=== PATIENT | male | born 1955 | race Caucasian/White ===

== ENCOUNTER → 2018-10-16 15:42 | Outpatient (CLI) | payer OTHER, SELFPAY ==
--- NOTE | 2018-10-16 16:11 | ECG_ITS ---
APPROVED REPORT Exam: Resting ECG HR:108 bpm ECG Measurements Heart Rate 108 AXES QRSd 114 QRS 83 QT 318 T 145 QTc 426 <Conclusion> Atrial Fibrillation,Motion Artifact Abnormal EKG Abnormal ECG Electronically signed by : Titi Borrego, 10/16/2018 16:25:40
--- NOTE | 2018-10-16 16:19 | XR_ITS ---
PROCEDURE: XR CHEST 2V CLINICAL HISTORY: smoker Heart disease COMPARISON: CXR1 CHEST-PORTABLE from 07/11/2013 FINDINGS: Prior CABG. Normal heart size. Nodular density is present at the 5th interspace anteriorly on the right at 9 by 6 mm. This is well-circumscribed may even represent a nipple shadow. Granuloma is an additional consideration. The remaining lungs are clear. No acute bony IMPRESSION: Findings. No acute finding. Nodular opacity overlying the right lower lung zone which could be due to granuloma or nipple shadow. Dictated by: Long Adames MD 10/16/2018 16:43 Signed by: <Electronically signed by Long Adames MD in [place]> 10/16/2018 16:43
--- NOTE | 2018-10-16 16:19 | XR_ITS ---
PROCEDURE: XR ABDOMEN MIN 2V CLINICAL INDICATION: abdominal pain COMPARISON: No exams were available for comparison FINDINGS: Nonspecific nonobstructive bowel gas pattern. Calcifications are present in the lower abdomen centrally and could be due to phleboliths. No intestinal obstruction or free air. Degenerative change lumbar spine. IMPRESSION: No acute finding Dictated by: Long Adames MD 10/16/2018 16:40 Signed by: <Electronically signed by Long Adames MD in OV> 10/16/2018 16:40
[2018-10-16 18:44] LABS: Basophils % 0.3 % (0.1-2.0); Eosinophils # 0.1 K/mm3 (0.0-0.4); Hematocrit 44.4 % (42.0-52.0); Hemoglobin 14.9 g/dL (14.1-18.0); Lymphocytes # 2.1 K/mm3 (0.7-4.5); Mean Corpuscular HGB Conc 33.5 g/dL (31.8-35.4); Mean Corpuscular Hemoglobin 33.5 pg (27.0-31.2); Mean Platelet Volume 8.9 fl (7.4-10.4); Monocytes # 0.5 K/mm3 (0.1-1.0); Monocytes % 6.3 % (1.7-9.3); Neutrophils # 5.1 K/mm3 (1.8-7.8); Neutrophils % 65.4 % (37.0-80.0); Platelet Count 278 K/mm3 (142-424); Red Blood Count 4.44 M/mm3 (4.60-6.20); Red Cell Distribution Width 13.3 % (11.5-17.5); White Blood Count 7.7 K/mm3 (4.8-10.8)
[2018-10-16 19:24] LABS: Alanine Aminotransferase 37 U/L (12-78); Albumin Level 3.8 gm/dL (3.4-5.0); Albumin/Globulin Ratio 1.2 (1.1-1.8); Alkaline Phosphatase 134 U/L (46-116); Anion Gap 15.5 mEq/L (5-15); Aspartate Amino Transferase 15 U/L (15-37); Bilirubin,Total 0.5 mg/dL (0.2-1.0); Blood Urea Nitrogen 14 mg/dL (7-18); C-Reactive Protein 0.7 mg/dL (0.0-0.9); Calcium 9.2 mg/dL (8.5-10.1); Carbon Dioxide 24 mmol/L (21.0-32.0); Chloride 103 mmol/L (98-107); Chol/HDL Ratio 6.6 (1-3.5); Cholesterol 206 mg/dL (140-200); Creatinine,Serum 0.78 mg/dL (0.70-1.30); Estimated Glomerular Filt Rate 101 ml/min (>60); GFR (African American) 122 ML/MIN (>60); Globulin 3.1 gm/dl (1.3-3.2); Glucose 86 mg/dL (74-106); HDL Cholesterol 31 mg/dL (27-67); LDL Cholesterol 154 mg/dL (0-130); Potassium 4.5 mmoL/L (3.5-5.1); Sodium 138 mmol/L (136-145); T4 (Thyroxine) 9.1 ug/dl (4.7-13.3); Thyroid Stimulating Hormone 1.93 uIU/ml (0.358-3.740); Total Protein,Serum 6.9 gm/dL (6.4-8.2); Triglycerides 106 mg/dL (30-200); VLDL Cholesterol 21 mg/dL (0-40)
[2018-10-16 19:39] LABS: Erythrocyte Sedimentation Rate 57 mm/hr (0-20)
[2018-10-18 09:48] LABS: Vitamin D 25 Hydroxy 21.2 ng/mL (30.0-100.0)
== END ==
PROVIDERS: PCP Emergency Medicine; Visit Provider Nurse Practitioner Family
DX: R10.9 Unspecified abdominal pain (principal); I10 Essential (primary) hypertension; F17.200 Nicotine dependence, unspecified, uncomplicated; R53.83 Other fatigue; R10.13 Epigastric pain; R00.2 Palpitations
CPT/HCPCS: 71046; 74019; 80053; 80061; 82652; 84436; 84443; 85025; 85651; 86140; 93005

== ENCOUNTER 2018-10-20 11:29 | Observation (INO) ==
--- NOTE | 2018-10-20 12:55 | Progress Note ---
Subjective Date: 10/20/18 Time: 12:51 Principal diagnosis: UAP, A. flutter with RVR Interval history: 63 yo WM seen in the office today for UAP and A. flutter with RVR. Symptoms present for 10-12 days and progressively worse. Similar to pre-CABG symptoms. Pt sent to cardiac laborer concrete paving today with subsequent ELSA to L main (supplying Ramus and Cx) and right innominate artery prior to GRISEL to RCA. NICOLE to LAD was widely patent. Diltiazem gtt started for a. flutter with improved rate control. Admit to observation overnight with plans to stop dilitiazem once rate controlled or he converts and start beta pallavi along with DAPT for stents placed. Exam Vital signs and Labs for Last 24 Hours: Temp BP Pulse Ox 98 F 117/63 96 10/20/18 12:30 10/20/18 12:30 10/20/18 12:30 I & O for Last 24 hours: Intake & Output 10/18/18 10/19/18 10/20/18 10/21/18 11:59 11:59 11:59 11:59 Weight 213 lb - *Routine HEENT Exam Head: Present: normocephalic Eye: Present: EOMI, PERRL ENT: Present: mucous membranes moist - *Routine Respiratory Exam Present: CTA bilaterally. Absent: accessory muscle use, rales, rhonchi, wheezes - *Routine Cardiovascular Exam Present: RRR, tachycardia. Absent: murmur, gallop, rubs - *Routine Abdominal Exam Present: soft. Absent: tenderness, distended, guarding - *Routine Extremities Exam Absent: edema, calf tenderness - *Routine Neurological Exam Present: alert, oriented X3, moving all extremities Progress Note: A&P (1) Angina, class III Status: Acute Current Visit: No (2) Abdominal pain Status: Acute Current Visit: No (3) Atrial flutter Status: Acute Current Visit: No (4) Dyspnea Status: Acute Current Visit: No (5) Hypertension Status: Acute Current Visit: No (6) Tobacco use Status: Acute Current Visit: No (7) CAD (coronary artery disease) Status: Chronic Current Visit: No (8) Hx of coronary artery bypass graft Status: Chronic Current Visit: No Assessment and Plan for All Diagnoses:: 1. ASA and Brilinta for ELSA 2. Dilitiazem gtt for rate control with plans to discontinue and use beta pallavi. 3. Start Xarelto 20 mg daily for anticoagulation. If pt doesn't convert in 30 days then cardiovert. 4. continue lisinopril as BP tolerates. 5. Echo to assess LVEF as it appears mildly diminished on LV gram. 6. Start statin therapy. 7. Likely discharge home tomorrow if stable.
[2018-10-20 16:21] LABS: Basophils % 0.5 % (0.1-2.0); Eosinophils # 0.1 K/mm3 (0.0-0.4); Eosinophils % 1.9 % (0.1-12.0); Hematocrit 43.7 % (42.0-52.0); Hemoglobin 14.1 g/dL (14.1-18.0); Lymphocytes # 2.2 K/mm3 (0.7-4.5); Lymphocytes % 39.2 % (10-50); Mean Corpuscular HGB Conc 32.3 g/dL (31.8-35.4); Mean Corpuscular Volume 100.8 fl (80-94); Mean Platelet Volume 7.7 fl (7.4-10.4); Monocytes # 0.2 K/mm3 (0.1-1.0); Monocytes % 3.1 % (1.7-9.3); Neutrophils % 55.2 % (37.0-80.0); Platelet Count 256 K/mm3 (142-424); Red Blood Count 4.33 M/mm3 (4.60-6.20); Red Cell Distribution Width 13.3 % (11.5-17.5); White Blood Count 5.5 K/mm3 (4.8-10.8)
[2018-10-20 16:31] LABS: Anion Gap 11.9 mEq/L (5-15); Calcium 8.6 mg/dL (8.5-10.1)
--- NOTE | 2018-10-20 20:20 | History & Physical Report ---
*Admission Date: 10/20/18 *Chief complaint: chest pain *History of present illness: this pt was admitted after seen in card clinic and seed laboratory assistant 63 yo WM seen in the office today for UAP and A. flutter with RVR. Symptoms present for 10-12 days and progressively worse. Similar to pre-CABG symptoms. Pt sent to cardiac seed laboratory assistant today with subsequent ELSA to L main (supplying Ramus and Cx) and right innominate artery prior to GRISEL to RCA. NICOLE to LAD was widely patent. Diltiazem gtt started for a. flutter with improved rate control. Admit to observation overnight with plans to stop dilitiazem once rate controlled or he converts and start beta pallavi along with DAPT for stents placed. [facility] History I have reviewed the patient's past medical history: Yes Medical History: Reports:: Arrhythmia, Atrial Fibrillation, Coronary Artery Disease, Gastroesophageal Reflux Disease(GERD), Hypertension Denies:: Diabetes Mellitus Type 1, Diabetes Mellitus Type 2, Internal Pacemaker, Seizures *Have you ever received a pneumonia vaccine?: No (refuses) *Have you received a flu vaccine this season?: No (refuses) Other Surgeries: Yes: No Previous Surgery, CABG (15 years ago), Colonoscopy. No: Pacemaker Amputation: No Fractures: No - *Social History Educational Level: Completed College Smoking Status: Current every day smoker Tobacco Type: cigarettes # Packs/Day (cigarettes): 1 Alcohol Intake: current Alcohol Intake Frequency:: a few times a week Substance Use Type: denies use *Occupational Status:: employed Housing: house Household Members: spouse *Travel in the last 8 weeks: None Family Hx:: Heart Attack, Cancer Review of Systems - Review of Systems Review of systems:: pertinent systems reviewed and negative unless documented below Meds Home Medications Medication Instructions Recorded Confirmed Type Lisinopril [Lisinopril 20mg Tab] 20 mg PO DAILY 10/20/18 10/20/18 History aspirin 81 mg tablet,delayed 81 mg PO DAILY 10/20/18 10/20/18 History release Atorvastatin Calcium [Lipitor 40mg 40 mg PO HS 30 Days #30 tab 10/21/18 Rx Tablet] Bisoprolol Fumarate [Bisoprolol 5 mg PO DAILY 30 Days #30 tab 10/21/18 Rx 5mg Tablet] Clopidogrel Bisulfate [Plavix 75mg 75 mg PO DAILY 30 Days #30 tab 10/21/18 Rx Tab] Rivaroxaban [Xarelto 10mg tablet] 20 mg PO QPMWM 30 Days #30 tab 10/21/18 Rx Allergies Allergy/AdvReac Type Severity Reaction Status Date / Time NO KNOWN ALLERGIES - NKA Allergy Mild Uncoded 10/20/18 10:33 Exam Vital signs and Labs for Last 24 Hours: Temp Pulse Resp BP Pulse Ox 97.7 F 68 17 128/80 98 10/20/18 16:00 10/20/18 18:30 10/20/18 18:30 10/20/18 18:30 10/20/18 18:30 Laboratory Results - last 24 hr 10/20/18 12:23: Activated Clotting Time 374 H* 10/20/18 12:56: Activated Clotting Time 236 H* D 10/20/18 16:12: WBC 5.5, RBC 4.33 L, Hgb 14.1, Hct 43.7, MCV 100.8 H, MCH 32.6 H , MCHC 32.3, RDW 13.3, Plt Count 256, MPV 7.7, Neut % (Auto) 55.2, Lymph % (Auto) 39.2, [place] % (Auto) 3.1, Eos % (Auto) 1.9, Baso % (Auto) 0.5, Neut # (Auto) 3.0, Lymph # (Auto) 2.2, [place] # (Auto) 0.2, Eos # (Auto) 0.1, Baso # (Auto) 0.0 10/20/18 16:12: Sodium 140, Potassium 3.9, Chloride 107, Carbon Dioxide 25, Anion Gap 11.9, BUN 14, Creatinine 0.87, Estimated Creat Clear 103, Estimated GFR 89, Est GFR ( Amer) 107, Glucose 124 H, Calcium 8.6 I & O for Last 24 hours: Intake & Output 10/18/18 10/19/18 10/20/18 10/21/18 11:59 11:59 11:59 11:59 Intake Total 240 / 240 Balance 240 / 240 Weight 213 lb - Constitutional no acute distress - *Routine HEENT Exam Head: Present: normocephalic Eye: Present: EOMI, PERRL ENT: Present: mucous membranes dry - *Routine Neck Exam Present: supple - *Routine Respiratory Exam Absent: respiratory distress - *Routine Cardiovascular Exam Present: irregular rhythm - *Routine Extremities Exam Present: full ROM - *Routine Skin Exam Present: intact - *Routine Neurological Exam Present: alert, CN II-XII intact - Routine Psychiatric Exam Present: normal affect Assessment and Plan (1) Angina, class III Current visit: No Status: Acute Category: Medical Code(s): I20.9 - Angina pectoris, unspecified (2) Abdominal pain Current visit: No Status: Acute Qualifiers: Abdominal location: unspecified location Qualified Code(s): R10.9 - Unspecified abdominal pain Category: Medical Code(s): R10.9 - Unspecified abdominal pain (3) Atrial flutter Current visit: No Status: Acute Qualifiers: Atrial flutter type: unspecified Qualified Code(s): I48.92 - Unspecified a trial flutter Category: Medical Code(s): I48.92 - Unspecified atrial flutter (4) Dyspnea Current visit: No Status: Acute Qualifiers: Dyspnea type: dyspnea on exertion Qualified Code(s): R06.09 - Other forms of dyspnea Category: Medical Code(s): R06.00 - Dyspnea, unspecified (5) Hypertension Current visit: No Status: Acute Qualifiers: Hypertension type: essential hypertension Qualified Code(s): I10 - Essential (primary) hypertension Category: Medical Code(s): I10 - Essential (primary) hypertension (6) Tobacco use Current visit: No Status: Acute Category: Medical Code(s): Z72.0 - Tobacco use (7) CAD (coronary artery disease) Current visit: No Status: Chronic Qualifiers: Coronary Disease-Associated Artery/Lesion type: bypass graft [place] vs. transplanted heart: [place] heart Associated angina: with other forms of angina Qualified Code(s): I25.708 - Atherosclerosis of coronary artery bypass graft(s), unspecified, with other forms of angina pectoris Category: Medical Code(s): I25.10 - Atherosclerotic heart disease of [place] coronary artery without angina pectoris (8) Hx of coronary artery bypass graft Current visit: No Status: Chronic Category: Surgical Code(s): Z95.1 - Presence of aortocoronary bypass graft
[2018-10-21 06:38] LABS: Basophils % 0.4 % (0.1-2.0); Eosinophils # 0.1 K/mm3 (0.0-0.4); Eosinophils % 1.7 % (0.1-12.0); Hematocrit 42.7 % (42.0-52.0); Hemoglobin 14.5 g/dL (14.1-18.0); Lymphocytes # 1.3 K/mm3 (0.7-4.5); Lymphocytes % 17.6 % (10-50); Mean Corpuscular HGB Conc 34.1 g/dL (31.8-35.4); Mean Corpuscular Volume 99.7 fl (80-94); Mean Platelet Volume 7.5 fl (7.4-10.4); Monocytes # 0.4 K/mm3 (0.1-1.0); Monocytes % 5.3 % (1.7-9.3); Neutrophils # 5.7 K/mm3 (1.8-7.8); Neutrophils % 74.9 % (37.0-80.0); Platelet Count 255 K/mm3 (142-424); Red Blood Count 4.28 M/mm3 (4.60-6.20); Red Cell Distribution Width 13.4 % (11.5-17.5); White Blood Count 7.7 K/mm3 (4.8-10.8)
[2018-10-21 07:29] LABS: Anion Gap 12.4 mEq/L (5-15); Calcium 8.5 mg/dL (8.5-10.1)
--- NOTE | 2018-10-21 09:21 | Discharge Summary ---
General - General Admission date:: 10/20/18 Discharge date: 10/21/18 HPI HPI: this pt was admitted Hospital Course Hospital Course: Patient was seen in Dr. Nguyen's office yesterday was sent to Pricing Strategist. Was stented and admitted for overnight observation to monitor heart rate. Today patient states he feels fine heart rates up letter in the 70s. Will discharge home and follow-up with Dr. Nguyen. We will add Xarelto 20 mg, statin, Plavix and bisoprolol 5 mg. He will continue his lisinopril and aspirin. Heart cath report still pending. Spoke with Dr. Nguyen okay to discharge patient with above recommendations. Objective Vital signs: Temp Pulse Resp BP Pulse Ox 98.0 F 71 18 133/83 95 10/21/18 07:55 10/21/18 08:00 10/21/18 08:00 10/21/18 08:00 10/21/18 08:00 no acute distress - *Routine HEENT Exam Head: Present: normocephalic Eye: Present: PERRL ENT: Present: mucous membranes moist - *Routine Neck Exam Present: full ROM - *Routine Respiratory Exam Present: CTA bilaterally - *Routine Cardiovascular Exam Present: RRR - *Routine Abdominal Exam Present: soft, normoactive bowel sounds - *Routine Extremities Exam Present: full ROM - *Routine Skin Exam Comments: Dressing to right groin - *Routine Neurological Exam Present: alert, oriented X3 - Routine Psychiatric Exam Present: normal affect Results Labs on day of discharge: Labs from last 24 hours 10/21/18 10/21/18 10/20/18 06:30 06:30 16:12 WBC 7.7 D RBC 4.28 L Hgb 14.5 Hct 42.7 MCV 99.7 H MCH 34.0 H MCHC 34.1 RDW 13.4 Plt Count 255 MPV 7.5 Neut % (Auto) 74.9 Lymph % (Auto) 17.6 Mcdonald % (Auto) 5.3 Eos % (Auto) 1.7 Baso % (Auto) 0.4 Neut # (Auto) 5.7 Lymph # (Auto) 1.3 Mcdonald # (Auto) 0.4 Eos # (Auto) 0.1 Baso # (Auto) 0.0 Activated Clotting Time Sodium 141 140 Potassium 4.4 3.9 Chloride 107 107 Carbon Dioxide 26 25 Anion Gap 12.4 11.9 BUN 12 14 Creatinine 0.81 0.87 Estimated Creat Clear 102 103 Estimated GFR 96 89 Est GFR ( Amer) 116 107 Glucose 95 D 124 H Calcium 8.5 8.6 Magnesium 2.0 10/20/18 10/20/18 10/20/18 16:12 12:56 12:23 WBC 5.5 RBC 4.33 L Hgb 14.1 Hct 43.7 MCV 100.8 H MCH 32.6 H MCHC 32.3 RDW 13.3 Plt Count 256 MPV 7.7 Neut % (Auto) 55.2 Lymph % (Auto) 39.2 Mcdonald % (Auto) 3.1 Eos % (Auto) 1.9 Baso % (Auto) 0.5 Neut # (Auto) 3.0 Lymph # (Auto) 2.2 Mcdonald # (Auto) 0.2 Eos # (Auto) 0.1 Baso # (Auto) 0.0 Activated Clotting Time 236 H* D 374 H* Sodium Potassium Chloride Carbon Dioxide Anion Gap BUN Creatinine Estimated Creat Clear Estimated GFR Est GFR ( Amer) Glucose Calcium Magnesium - Additional Comments Rounded with Dr. Oswald all orders per Darek DS: Diagnosis - Discharge Diagnosis (1) Angina, class III Status: Acute (2) Abdominal pain Status: Acute (3) Atrial flutter Status: Acute (4) Dyspnea Status: Acute (5) Hypertension Status: Acute (6) Tobacco use Status: Acute (7) CAD (coronary artery disease) Status: Chronic (8) Hx of coronary artery bypass graft Status: Chronic Discharge Plan - Patient Discharge Instructions ACTIVITY: Continue current activity DIET: continue same diet Patient Instructions: Heart-Healthy Diet, DI for Cardiac Catheterization, DI for Coronary Stenting, DI for Surgical Site Infection, How to Quit Smoking - Follow up Plan Follow up with: Hasmukh Nguyen MD [Staff Physician] - 10/30/18 2:00 pm Disposition: Home, Self-Fpc Medications: Home Medications Medication Instructions Recorded Confirmed Type Lisinopril [Lisinopril 20mg Tab] 20 mg PO DAILY 10/20/18 10/20/18 History aspirin 81 mg tablet,delayed 81 mg PO DAILY 10/20/18 10/20/18 History release Atorvastatin Calcium [Lipitor 40mg 40 mg PO HS 30 Days #30 tab 10/21/18 Rx Tablet] Bisoprolol Fumarate [Bisoprolol 5 mg PO DAILY 30 Days #30 tab 10/21/18 Rx 5mg Tablet] Clopidogrel Bisulfate [Plavix 75mg 75 mg PO DAILY 30 Days #30 tab 10/21/18 Rx Tab] Rivaroxaban [Xarelto 10mg tablet] 20 mg PO QPMWM 30 Days #30 tab 10/21/18 Rx Prescriptions/Medication Reconciliation: New Atorvastatin Calcium [Lipitor 40mg Tablet] 40 mg PO HS 30 Days #30 tab Clopidogrel Bisulfate [Plavix 75mg Tab] 75 mg PO DAILY 30 Days #30 tab Rivaroxaban [Xarelto 10mg tablet] 20 mg PO QPMWM 30 Days #30 tab Bisoprolol Fumarate [Bisoprolol 5mg Tablet] 5 mg PO DAILY 30 Days #30 tab Continued aspirin 81 mg tablet,delayed release 81 mg PO DAILY Lisinopril [Lisinopril 20mg Tab] 20 mg PO DAILY - Problem Reconciliation Problems Reviewed?: Yes
== END 2018-10-21 10:33 | disposition home or self-care (01) ==
LOC: 2ND 11:29 → CATHLAB 11:29 → 2ND 13:41
PROVIDERS: ADMIT Emergency Medicine; ATTEND Emergency Medicine
DX: Z72.0 Tobacco use; I25.708 Atherosclerosis of coronary artery bypass graft(s), unspecified, with other forms of angina pectoris; I10 Essential (primary) hypertension; Z95.1 Presence of aortocoronary bypass graft; I48.91 Unspecified atrial fibrillation; R94.31 Abnormal electrocardiogram [ECG] [EKG]; K21.9 Gastro-esophageal reflux disease without esophagitis; I48.92 Unspecified atrial flutter; I25.118 Atherosclerotic heart disease of native coronary artery with other forms of angina pectoris
CPT/HCPCS: 36415; 80048; 83735; 85025; 85347; 92928; 92937; 93306; 93458; 99152; 99153; C1725; C1760; C1766; C1769; C1876; C1894; C9600; C9604; G0378; J1610; J1644; Q9967

== ENCOUNTER → 2018-10-30 13:35 | Outpatient (CLI) | payer OTHER, SELFPAY ==
[2018-10-30 13:53] LABS: Anion Gap 12.8 mEq/L (5-15); Blood Urea Nitrogen 14 mg/dL (7-18); Calcium 8.9 mg/dL (8.5-10.1); Carbon Dioxide 26 mmol/L (21.0-32.0); Chloride 107 mmol/L (98-107); Creatinine,Serum 0.81 mg/dL (0.70-1.30); Estimated Glomerular Filt Rate 96 ml/min (>60); GFR (African American) 116 ML/MIN (>60); Glucose 112 mg/dL (74-106); Potassium 3.8 mmoL/L (3.5-5.1); Sodium 142 mmol/L (136-145)
== END ==
PROVIDERS: Visit Provider Internal Medicine
DX: I10 Essential (primary) hypertension (principal); I25.10 Atherosclerotic heart disease of native coronary artery without angina pectoris; I48.92 Unspecified atrial flutter; R06.00 Dyspnea, unspecified; Z72.0 Tobacco use
CPT/HCPCS: 36415; 80048

== ENCOUNTER → 2018-11-29 15:20 | Outpatient (CLI) | payer OTHER, SELFPAY ==
[2018-11-29 19:06] LABS: Alanine Aminotransferase 23 U/L (12-78); Albumin Level 3.7 gm/dL (3.4-5.0); Alkaline Phosphatase 148 U/L (46-116); Aspartate Amino Transferase 10 U/L (15-37); Bilirubin,Direct 0.1 mg/dL (0.0-0.2); Bilirubin,Indirect 0.4 mg/dL (0.0-0.9); Bilirubin,Total 0.5 mg/dL (0.2-1.0); Creatine Kinase 117 U/L (39-308); Total Protein,Serum 6.9 gm/dL (6.4-8.2)
== END ==
PROVIDERS: Visit Provider Urology
DX: M54.9 Dorsalgia, unspecified (principal); M79.10 Myalgia, unspecified site; M79.606 Pain in leg, unspecified
CPT/HCPCS: 36415; 80076; 82550

== ENCOUNTER → 2018-12-19 13:24 | Outpatient (CLI) | payer OTHER, SELFPAY ==
--- NOTE | 2018-12-19 13:28 | NM_ITS ---
APPROVED REPORT NM Technologist: SIMON Calle, RT (R)(N) Indication Abnormal ECG Dyspnea Atrial Fibrillation CAD Hypertension/HCVD Cardiomyopathy Cardiac Risk Factors Hypertension: Smoking: Procedure The above named patient was injected with 26.5 mCi of [id number] tagged red blood cells. Gated imaging was then performed in left anterior oblique projections. Findings Calculated LV Ejection Fraction is 57.0%. Impression Normal MUGA study. Calculated left ventricular ejection fraction is 57 %. Normal ejection fraction of 57% Conclusion Normal ejection fraction of 57% Electronically signed by : Long Adames MD 12/20/2018 15:37:46
--- NOTE | 2018-12-19 13:58 | HMH.ITSHM ---
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 []LISINOPRIL VITAMIN D2 CLOPIDOGREL BISOPROLOL ASA APIXABAN
== END ==
PROVIDERS: PCP Emergency Medicine; Visit Provider Internal Medicine
DX: I25.5 Ischemic cardiomyopathy (principal); I10 Essential (primary) hypertension; I25.708 Atherosclerosis of coronary artery bypass graft(s), unspecified, with other forms of angina pectoris; I48.92 Unspecified atrial flutter; K21.9 Gastro-esophageal reflux disease without esophagitis; R06.09 Other forms of dyspnea; Z72.0 Tobacco use; Z95.1 Presence of aortocoronary bypass graft
CPT/HCPCS: 78473; A9512; A9560

== ENCOUNTER 2019-05-20 11:02 | Observation (INO) ==
[2019-05-20 11:27] LABS: Basophils # 0.1 K/mm3 (0-0.2); Basophils % 0.8 % (0.1-2.0); Eosinophils # 0.2 K/mm3 (0.0-0.4); Eosinophils % 2.7 % (0.1-12.0); Hematocrit 48.2 % (42.0-52.0); Hemoglobin 16.5 g/dL (14.1-18.0); Mean Corpuscular HGB Conc 34.2 g/dL (31.8-35.4); Mean Corpuscular Volume 97.4 fl (80-94); Mean Platelet Volume 7.7 fl (7.4-10.4); Monocytes # 0.4 K/mm3 (0.1-1.0); Neutrophils % 65.6 % (37.0-80.0); Platelet Count 227 K/mm3 (142-424); Red Blood Count 4.95 M/mm3 (4.60-6.20); Red Cell Distribution Width 13.1 % (11.5-17.5); White Blood Count 7.6 K/mm3 (4.8-10.8)
--- NOTE | 2019-05-20 11:35 | Emergency Department Note ---
ED Disposition Clinical Impression: Atrial flutter by electrocardiogram, History of coronary artery disease, Hypertension, uncontrolled, History of atrial fibrillation, Elevated troponin Chest pain Qualifiers: Chest pain type: unspecified Qualified Code(s): R07.9 - Chest pain, unspecified Disposition: Admitted as Observation Condition on Discharge: Fair Referrals: Nadja Higgins APRN [Primary Care Provider] - Time of Disposition: 13:08 - Critical Care Critical Care Time: Yes Attestation: On 05/20/19, the high probability of a clinically significant, sudden or life threatening deterioration of the following system(s) required my full and direct attention, intervention and personal management. The time I documented below is in addition to time spent performing reported procedures but includes the following listed in this critical care notation. Total Critical Care Time: 30 Vital system(s) involved:: Circulatory Failure My critical care processes included: Assessment & monitoring of V/S, Initial and Re-exams, Data Review/Interpretation, Coordinating Care, Medication Orders and management, Documentation Medical Decision Making - Law Inquiry Pt receiving controlled substance: No Vital Signs: 05/20/19 11:12 05/20/19 11:44 05/20/19 12:15 Temperature 98.7 F Temperature Source Oral Pulse Rate [Right Radial] 129 H 82 70 Respiratory Rate 18 Blood Pressure [Right Arm] 171/127 H 127/57 L 150/82 H Blood Pressure Mean [Right Arm] 141 80 104 Blood Pressure Source [Right Arm] Automatic Cuff Blood Pressure Position [Right Arm] Sitting Sitting 02 Sat by Pulse Oximetry 97 97 Oxygen Delivery Method Room Air Room Air 05/20/19 12:35 Temperature Temperature Source Pulse Rate [Right Radial] 63 Respiratory Rate Blood Pressure [Right Arm] 155/100 H Blood Pressure Mean [Right Arm] 118 Blood Pressure Source [Right Arm] Automatic Cuff Blood Pressure Position [Right Arm] Sitting 02 Sat by Pulse Oximetry 98 Oxygen Delivery Method Room Air - Lab Data Lab results reviewed: Yes: I reviewed the patient's lab results. Lab Results 05/20/19 11:17: WBC 7.6, RBC 4.95, Hgb 16.5, Hct 48.2, MCV 97.4 H, MCH 33.3 H, MCHC 34.2, RDW 13.1, Plt Count 227, MPV 7.7, Neut % (Auto) 65.6, Lymph % (Auto) 26.0, [place]pson % (Auto) 5.0, Eos % (Auto) 2.7, Baso % (Auto) 0.8, Neut # (Auto) 5.0, Lymph # (Auto) 2.0, Upson # (Auto) 0.4, Eos # (Auto) 0.2, Baso # (Auto) 0.1 05/20/19 11:17: Sodium 139, Potassium 4.4, Chloride 107, Carbon Dioxide 24, Anion Gap 12.4, BUN 14, Creatinine 0.70, Estimated Creat Clear 109, Estimated GFR 114, Est GFR ( Amer) 138, Glucose 97, Calcium 9.6, Troponin I 0.11 H 05/20/19 11:17: Total Bilirubin 0.5, Direct Bilirubin 0.0, Conjugated Bilirubin 0.0, Indirect Bilirubin 0.5, Unconjugated Bilirubin 0.5, AST 30, ALT 20, Alkaline Phosphatase 121, Total Protein 7.2, Albumin 4.2 Result diagrams: 05/20/19 11:17 05/20/19 11:17 Orders (Tests/Meds): ED MEDICATIONS Generic Name Dose Route Start Last Admin Trade Name Freq PRN Reason Stop Dose Admin Amiodarone HCl 900 mg/ 518 mls @ 33.3 mls/hr 05/20/19 11:45 05/20/19 12:04 Dextrose IV 05/21/19 03:18 33.3 mls/hr .[id number] TINO Administration Discontinued Medications Generic Name Dose Route Start Last Admin Trade Name Freq PRN Reason Stop Dose Admin Amiodarone HCl 150 mg 05/20/19 11:35 05/20/19 11:39 Cordarone 150mg/3ml Vial IVP 05/20/19 11:36 150 mg ONCE ONE Administration Aspirin 324 mg 05/20/19 11:16 05/20/19 11:28 Aspirin 81mg Chewable Tablet PO 05/20/19 11:17 324 mg ONCE ONE Administration Enoxaparin Sodium 100 mg 05/20/19 11:57 05/20/19 12:15 Lovenox 100mg/Ml Syringe SQ 05/20/19 11:58 Not Given ONCE ONE Metoprolol Tartrate 5 mg 05/20/19 11:22 05/20/19 11:28 Metoprolol Tartrate 5mg/5ml Vial IV 05/20/19 11:23 5 mg ONCE ONE Administration Nitroglycerin 0.4 mg 05/20/19 11:16 05/20/19 11:28 Nitrostat 0.4mg Sl Tablet SL 05/20/19 11:17 0.4 mg ONCE ONE Administration Ticagrelor 180 mg 05/20/19 11:56 05/20/19 12:15 Brilinta 90mg Tablet PO 05/20/19 11:57 Not Given ONCE ONE ORDERS Category Date Time Status XR chest portable Stat Exams 05/20/19 11:16 Taken Troponin I Q3H Lab 05/20/19 14:30 Ordered Troponin I Q3H Lab 05/20/19 17:30 Ordered - ECG Data Tracing #1 Tachycardia with a heart rate of 129 bpm, borderline wide complex QRS pattern, nonspecific ST-T changes. EKG done at 1110 hrs. Tracing #2 EKG done after sublingual nitro and just Lopressor 5 mg push, at 1130 hrs. Heart rate of 127 bpm, nonspecific ST-T changes, wide QRS complex. Tracing #3 Atrial fibrillation/atrial flutter with a heart rate of 82 bpm, nonspecific ST-T changes. EKG done at 1143 hrs. At the start of amiodarone push - Physician Consults Physician Consulted: Dr. Nguyen Time: 11:50 Reason -: Pt condition Comment/Response: I was in communication with Dr. Nguyen since about 11:11 AM. We had sent him the first EKG and then we were consulting with him over the phone regarding the management plan. Wanted us to give Lopressor and amiodarone and then keep the patient on amiodarone drip. He was informed about the troponin and the patient's clinical status. At about 1150 hrs. the patient was asymptomatic. He denies having any neck discomfort or chest discomfort. Dr. Nguyen wants to continue the current management plan. He states that the elevation in troponin is secondary to atrial fibrillation/flutter. Since the symptoms started more than 12 hours ago he does not think that the patient needs to be taken to cardiac cath immediately. He would follow-up with the patient in the morning. He wants us to continue the patient management with amiodarone and aspirin as well as Plavix or Brilinta and Lovenox and continue the monitoring. Additional Consult: Dr. Oswald Time: 13:05 Reason -: Admission Comment/Response: Discussed with Dr. Oswald, the primary care provider for the patient, regarding the patient and plan to get the patient admitted to the stepdown unit. - Reevaluation(s) Time: 11:45 Reevaluation #1: It was feeling better. He states the neck discomfort in the chest discomfort was completely gone. Denies having any shortness of breath. Time: 13:00 Reevaluation #2: He has been stable throughout the course of stay in the ER. Plan to admit the patient to the stepdown unit. Heart rate has been around 70s per minute with atrial flutter rhythm. - TEODORO Score for Non-Stemi Age of Patient: 60-69 years old Heart Rate: 150-199 bpm Systolic Blood Pressure: 140-159 mmHg Serum Creatinine: 0.40-0.79 mg/dl CHF Killip Class: I-No CHF Other Risk Factors: Elevated Cardiac Enzymes or Biomarkers Non-Stemi Risk Score: 138 Chest Pain HPI - General Chief Complaint: Neck Pain/Injury Stated Complaint: heart issues Time Seen by Provider: 05/20/19 11:30 Mode of Arrival: Wheelchair Limitations: No Limitations Description of Symptoms (Recalled from ER Triage Doc. by RN): pt presents to ed with c/o middle neck pain and epigastric pain that began yesterday. pt states that he felt this way the last time he had to have stents. - History of Present Illness HPI narrative: 63-year-old male presents with chief complaint of having chest pain and discomfort along with feeling of discomfort on the neck both sides for the last 2 days. Patient has history of coronary artery disease with CABG done 15 years ago and 2 stents placed within the last 1 year. His guidance and control system engineer is Dr. Nguyen. He states he felt like he was having another heart attack. He feels the pain in the lower part of the chest on the midline. The pain is not that much. Denies having any shortness of breath. Denies having any dizziness. Denies having any nausea or vomiting. MD complaint: chest pain Onset (ago): day(s) (2) Duration: constant Activity at onset: during rest Pain location: epigastric Severity: mild Quality: sharp Pain radiation: none Relieving factors: nothing Exacerbating factors: nothing - Related Data Home Medications Medication Instructions Recorded Confirmed aspirin 81 mg tablet,delayed 81 mg PO DAILY 10/20/18 03/27/19 release Apixaban [Eliquis] 5 mg PO BID 05/20/19 05/20/19 Bisoprolol Fumarate [Bisoprolol 5 mg PO DAILY 05/20/19 05/20/19 5mg Tablet] Ergocalciferol (Vitamin D2) 50,000 unit PO QWEEK 05/20/19 05/20/19 [Drisdol] lisinopriL [Lisinopril 40mg Tablet] 40 mg PO DAILY 05/20/19 05/20/19 Allergies Allergy/AdvReac Type Severity Reaction Status Date / Time NO KNOWN ALLERGIES - NKA Allergy Mild Uncoded 03/27/19 13:46 [facility] History - Hepatitis A Screen Drug use history?: No High risk sexual behaviors?: No History of sexually transmitted infection?: No Currently employed?: No Childcare worker?: No Do you have indoor plumbing?: Yes Do you have electricity?: Yes Attestation statement:: This patient has been screened for Hepatitis A risk factors. I have reviewed the patient's past medical history: Yes Medical History: Reports:: Arrhythmia, Atrial Fibrillation, Coronary Artery Disease, Gastroesophageal Reflux Disease(GERD), Hypertension Denies:: Diabetes Mellitus Type 1, Diabetes Mellitus Type 2, Internal Pacemaker, Seizures Other Surgeries: Yes: No Previous Surgery, CABG (15 years ago), Cardiac Catheterization, Colonoscopy. No: Pacemaker Amputation: No Fractures: No - Social History Smoking Status: Current every day smoker Tobacco Type: cigarettes # Packs/Day (cigarettes): 1 Alcohol Intake: current Alcohol Intake Frequency:: a few times a week Substance Use Type: denies use Occupational Status: retired Housing: house Household Members: spouse Family Hx:: Heart Attack, Cancer Comment: Father- of DC@46 ROS Obtained: Yes All systems reviewed & no additional complaints Physical Exam - General General appearance: alert, in no apparent distress - Head Head exam: atraumatic, normocephalic, normal inspection - Eye Eye exam: Present: normal appearance, PERRL, EOMI - ENT ENT exam: Present: normal exam, normal oropharynx, mucous membranes moist, normal external ear exam - Neck Neck exam: Present: normal inspection, full ROM, trachea midline - Chest Chest inspection: Present: normal inspection, symmetric chest wall rise. Absent: tenderness - Respiratory Respiratory exam: Present: normal lung sounds bilaterally. Absent: respiratory distress - Cardiovascular Cardiovascular exam: Present: regular rate, normal rhythm. Absent: JVD - Abdominal Exam Abdominal exam: Present: soft, normal bowel sounds. Absent: distention, tenderness, guarding - Extremities Exam Extremities exam: Present: normal inspection, full ROM, normal capillary refill. Absent: calf tenderness - Back Exam Back exam: Present: normal inspection, full ROM. Absent: tenderness - Neurological Exam Neurological exam: Present: alert, oriented X3, CN II-XII intact - Psychiatric Psychiatric exam: Present: normal affect, normal mood - Skin Skin exam: Present: warm, dry, intact, normal color
[2019-05-20 11:37] LABS: Anion Gap 12.4 mEq/L (5-15); Bilirubin,Indirect 0.5 mg/dL (0.0-0.9); Bilirubin,Total 0.5 mg/dl (0.2-1.3); Bilirubin,Unconjugated 0.5 mg/dL (0.0-1.1); Calcium 9.6 mg/dl (8.4-10.2)
[2019-05-20 11:38] LABS: Albumin Level 4.2 g/dl (3.5-5.0); Total Protein,Serum 7.2 g/dl (6.3-8.2)
--- NOTE | 2019-05-20 14:40 | Pharmacy Consult Notes ---
[facility] VTE Monitoring - Patient Demographics Admission date: 05/20/19 Report Date: 05/20/19 Time: 14:39 Allergies/Adverse Reactions: Patient Allergies NO KNOWN ALLERGIES - NKA Allergy (Mild, Uncoded 03/27/19 13:46) Height: 1.91 m Weight: 99.79 kg Patient Problems: Current Active Problems (Last Updated 11/29/18 @ 15:23 by Lin Harris RN) Chest pain (Acute) Atrial flutter by electrocardiogram (Acute) History of coronary artery disease (Acute) Hypertension, uncontrolled (Acute) History of atrial fibrillation (Acute) Elevated troponin (Acute) - VTE Risk Labs: VTE Related Lab Results Hgb 16.5 g/dL (14.1-18.0) 05/20/19 11:17 Hct 48.2 % (42.0-52.0) 05/20/19 11:17 Plt Count 227 K/mm3 (142-424) 05/20/19 11:17 BUN 14 mg/dl (9-20) 05/20/19 11:17 Creatinine 0.70 mg/dl (0.66-1.25) 05/20/19 11:17 Estimated Creat Clear 109 mL/min (50-200) 05/20/19 11:17 Was VTE Risk Assessment Performed: Yes VTE Score: 3 VTE Risk Level: Low Risk - Prophylaxis VTE Prophylaxis Ordered?: Yes Types of VTE Prophylaxis: Pharmacological Pharmacologic Type: Other (ELIQUIS)
--- NOTE | 2019-05-20 20:17 | History & Physical Report ---
*Admission Date: 05/20/19 *Chief complaint: chest pain *History of present illness: this pt had episode of chest pain presents to ed with c/o middle neck pain and epigastric pain that began yesterday. pt states that he felt this way the last time he had to have stents. 63-year-old male presents with chief complaint of having chest pain and discomfort along with feeling of discomfort on the neck both sides for the last 2 days. Patient has history of coronary artery disease with CABG done 15 years ago and 2 stents placed within the last 1 year. His recycling tech is Dr. Nguyen. He states he felt like he was having another heart attack. He feels the pain in the lower part of the chest on the midline. The pain is not that much. Denies having any shortness of breath. Denies having any dizziness. Denies having any nausea or vomiting. pt was discussed with card-as in communication with Dr. Nguyen since about 11:11 AM. We had sent him the first EKG and then we were consulting with him over the phone regarding the management plan. Wanted us to give Lopressor and amiodarone and then keep the patient on amiodarone drip. He was informed about the troponin and the patient's clinical status. At about 1150 hrs. the patient was asymptomatic. He denies having any neck discomfort or chest discomfort. Dr. Nguyen wants to continue the current management plan. He states that the elevation in troponin is secondary to atrial fibrillation/flutter. Since the symptoms started more than 12 hours ago he does not think that the patient needs to be taken to cardiac cath immediately. He would follow-up with the patient in the morning. He wants us to continue the patient management with amiodarone and aspirin as well as Plavix or Brilinta and Lovenox and continue the monitoring. pt was admitted - [facility] History I have reviewed the patient's past medical history: Yes Medical History: Reports:: Arrhythmia, Atrial Fibrillation, Coronary Artery Disease, Gastroesophageal Reflux Disease(GERD), Hyperlipidemia, Hypertension Denies:: Cancer, Diabetes Mellitus Type 1, Diabetes Mellitus Type 2, Internal Pacemaker, Seizures *Have you ever received a pneumonia vaccine?: No (REFUSES) *Have you received a flu vaccine this season?: No (REFUSES) Other Surgeries: Yes: No Previous Surgery, CABG (15 years ago), Cardiac Catheterization, Colonoscopy. No: Pacemaker Amputation: No Fractures: No - *Social History Educational Level: Completed College Smoking Status: Current every day smoker Tobacco Type: cigarettes # Packs/Day (cigarettes): 1 Alcohol Intake: current Alcohol Intake Frequency:: a few times a week Substance Use Type: denies use *Occupational Status:: employed Housing: house Household Members: spouse *Travel in the last 8 weeks: None Family Hx:: Heart Attack, Cancer Review of Systems - Review of Systems Review of systems:: pertinent systems reviewed and negative unless documented below - Constitutional Denies fever(s) - Eyes Denies change in vision - ENT Denies facial pain - *Cardiovascular Reports chest pain, Reports radiating jaw, neck or arm pain, Denies shortness of breath - *Respiratory Denies cough - *Gastrointestinal Denies abdominal pain - *Genitourinary Denies blood in urine - *Musculoskeletal Denies joint pain - Integumentary/Breasts Denies rash - *Neurologic Denies localized weakness, Denies seizure-like activity - Psychiatric Denies anxiety Meds Home Medications Medication Instructions Recorded Confirmed Type aspirin 81 mg tablet,delayed 81 mg PO DAILY 10/20/18 05/20/19 History release Apixaban [Eliquis] 5 mg PO BID 05/20/19 05/20/19 History Bisoprolol Fumarate [Bisoprolol 5 mg PO DAILY 05/20/19 05/20/19 History 5mg Tablet] Clopidogrel Bisulfate [Clopidogrel 75 mg PO DAILY 05/20/19 05/20/19 History 75mg Tab] Ergocalciferol (Vitamin D2) 50,000 unit PO WEEKLY 05/20/19 05/20/19 History [Drisdol] lisinopriL [Lisinopril 40mg Tablet] 40 mg PO DAILY 05/20/19 05/20/19 History Allergies Allergy/AdvReac Type Severity Reaction Status Date / Time NO KNOWN ALLERGIES - NKA Allergy Mild Uncoded 03/27/19 13:46 Exam Vital signs and Labs for Last 24 Hours: Temp Pulse Resp BP Pulse Ox 97.5 F L 64 20 155/90 H 96 05/20/19 20:00 05/20/19 20:00 05/20/19 20:00 05/20/19 20:00 05/20/19 20:00 Laboratory Results - last 24 hr 05/20/19 11:17: WBC 7.6, RBC 4.95, Hgb 16.5, Hct 48.2, MCV 97.4 H, MCH 33.3 H, MCHC 34.2, RDW 13.1, Plt Count 227, MPV 7.7, Neut % (Auto) 65.6, Lymph % (Auto) 26.0, Lea % (Auto) 5.0, Eos % (Auto) 2.7, Baso % (Auto) 0.8, Neut # (Auto) 5.0, Lymph # (Auto) 2.0, Lea # (Auto) 0.4, Eos # (Auto) 0.2, Baso # (Auto) 0.1 05/20/19 11:17: Sodium 139, Potassium 4.4, Chloride 107, Carbon Dioxide 24, Anion Gap 12.4, BUN 14, Creatinine 0.70, Estimated Creat Clear 109, Estimated GFR 114, Est GFR ( Amer) 138, Glucose 97, Calcium 9.6, Troponin I 0.11 H 05/20/19 11:17: Total Bilirubin 0.5, Direct Bilirubin 0.0, Conjugated Bilirubin 0.0, Indirect Bilirubin 0.5, Unconjugated Bilirubin 0.5, AST 30, ALT 20, Alkaline Phosphatase 121, Total Protein 7.2, Albumin 4.2 05/20/19 11:17: Magnesium 2.2 I & O for Last 24 hours: Intake & Output 05/18/19 05/19/19 05/20/19 05/21/19 11:59 11:59 11:59 11:59 Intake Total 1344 / 1344 Balance 1344 / 1344 Weight 225 lb 220 lb - Constitutional no acute distress - *Routine HEENT Exam Head: Present: normocephalic Eye: Present: EOMI, PERRL ENT: Present: mucous membranes dry - *Routine Neck Exam Present: supple. Absent: JVD - *Routine Respiratory Exam Present: CTA bilaterally. Absent: respiratory distress - *Routine Cardiovascular Exam Present: RRR, murmur, S4 - *Routine Abdominal Exam Present: soft - *Routine Extremities Exam Present: edema. Absent: calf tenderness - *Routine Skin Exam Present: intact - *Routine Neurological Exam Present: alert, CN II-XII intact - Routine Psychiatric Exam Present: cooperative Assessment and Plan (1) Chest pain Current visit: Yes Status: Acute Qualifiers: Chest pain type: unspecified Qualified Code(s): R07.9 - Chest pain, unspecified Category: Medical Code(s): R07.9 - Chest pain, unspecified (2) Elevated troponin Current visit: Yes Status: Acute Category: Medical Code(s): R79.89 - Other specified abnormal findings of blood chemistry (3) Hx of coronary artery bypass graft Current visit: No Status: Chronic Category: Surgical Code(s): Z95.1 - Presence of aortocoronary bypass graft
[2019-05-21 05:44] LABS: Basophils % 0.5 % (0.1-2.0); Eosinophils # 0.1 K/mm3 (0.0-0.4); Eosinophils % 1.9 % (0.1-12.0); Hematocrit 45.9 % (42.0-52.0); Hemoglobin 14.9 g/dL (14.1-18.0); Lymphocytes # 1.5 K/mm3 (0.7-4.5); Lymphocytes % 19.9 % (10-50); Mean Corpuscular HGB Conc 32.4 g/dL (31.8-35.4); Mean Corpuscular Volume 100.6 fl (80-94); Mean Platelet Volume 7.9 fl (7.4-10.4); Monocytes # 0.4 K/mm3 (0.1-1.0); Monocytes % 5.1 % (1.7-9.3); Neutrophils # 5.3 K/mm3 (1.8-7.8); Neutrophils % 72.5 % (37.0-80.0); Platelet Count 194 K/mm3 (142-424); Red Blood Count 4.57 M/mm3 (4.60-6.20); Red Cell Distribution Width 13.2 % (11.5-17.5); White Blood Count 7.4 K/mm3 (4.8-10.8)
[2019-05-21 05:58] LABS: Calcium 8.8 mg/dl (8.4-10.2)
--- NOTE | 2019-05-21 08:47 | Consult Report ---
History of Present Illness Consult date: 05/21/19 Requesting physician: Beny Oswald Consult reason: chest pain Chief complaint: A. flutter with RVR, chest pain Additional Medical History:: 1. Hypertension 2. Hyperlipidemia 3. History of alcohol use 4. Tobacco use for over 40 yrs, ongoing 5. Coronary artery disease A. CABG using both MELISSA, approximately 2004, [place] B. [facility], 10/2018, ANGIOGRAPHIC RESULTS The left main artery Has a distal complex 80% stenosis The left anterior descending artery Is ostially occluded The circumflex artery Gives rise to a large ramus intermedius which has The right coronary artery Is dominant and ostially occluded The ZEPEDA ventriculogram reveals Normal 65% The left ventricular end-diastolic pressure 10 mmHg The left internal mammary artery is widely patent to the mid LAD. There is no backfilling of the ramus intermedius or circumflex artery from this left internal mammary artery graft The right subclavian artery has a severe focal 90% stenosis proximal to the takeoff of the right internal mammary artery The right internal mammary artery is widely patent and makes an anastomosis onto the distal right coronary artery/posterior descending artery. IMPRESSION Severe distal left main stenosis which supplies a large ramus intermedius and circumflex artery network which was not surgically bypassed Successful stenting of the proximal mid distal left main artery reducing the severe stenosis to 0% and now providing excellent antegrade flow to the large ramus intermedius and circumflex artery Severe stenosis in the right subclavian artery proximal to the GRISEL graft supplying a dominant right coronary artery Successful stenting of the right coronary artery severe stenosis reduced to 0% with one bare-metal stent PLAN 1. Dual antiplatelet therapy 2. LDL less than 55 3. Avoidance of tobacco products 4. Cardiac rehabilitation 5. Aggressive risk factor modification 6. GERD 7. A. fib A. Eliquis therapy. ( Xarelto stopped due to back pain that resolved after discontinuation.) B. A. flutter with RVR, 04/2019, Amiodarone IV loading 8. Ischemic Cardiomyopathy A. Echo, 09/2018, LVEF 30-40% with global hypokinesis. A. fib noted. B. ELDON, 11/2018, 1. Moderately enlarged left atrium, left atrial appendage free of thrombus, there is adequate appendage flow by spectral Doppler. 2. Mildly dilated left ventricle with severely reduced left ventricular systolic function, visually estimated ejection fraction 30%, left ventricle is globally hypokinetic. 3. Mild mitral and tricuspid regurgitation 4. Patent foramen ovale with [id number] shunt. 5. Normal vital atheromatous plaque seen in the descending thoracic aorta. 6. No significant pericardial effusion noted C. MUGA, LVEF 57% History of present illness: this pt had episode of chest pain presents to ed with c/o middle neck pain and epigastric pain that began yesterday. pt states that he felt this way the last time he had to have stents. 63-year-old male presents with chief complaint of having chest pain and discomfort along with feeling of discomfort on the neck both sides for the last 2 days. Patient has history of coronary artery disease with CABG done 15 years ago and 2 stents placed within the last 1 year. 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 He states he felt like he was having another heart attack. He feels the pain in the lower part of the chest on the midline. The pain is not that much. Denies having any shortness of breath. Denies having any dizziness. Denies having any nausea or vomiting. pt was discussed with card-as in communication with Dr. Nguyen since about 11:11 AM. We had sent him the first EKG and then we were consulting with him over the phone regarding the management plan. Wanted us to give Lopressor and amiodarone and then keep the patient on amiodarone drip. He was informed about the troponin and the patient's clinical status. At about 1150 hrs. the patient was asymptomatic. He denies having any neck discomfort or chest discomfort. Dr. Nguyen wants to continue the current management plan. He states that the elevation in troponin is secondary to atrial fibrillation/flutter. Since the symptoms started more than 12 hours ago he does not think that the patient needs to be taken to cardiac cath immediately. He would follow-up with the patient in the morning. He wants us to continue the patient management with amiodarone and aspirin as well as Plavix or Brilinta and Lovenox and continue the monitoring. The above per Dr. Diop Pt confirms 2-3 days of intermittent palpitations and discomfort in neck and abdomen reminiscent of prior symptoms in 09/2018 at which time he had coronary stenting performed. Patient relates drinking a sixpack of beer couple of times last week including Tuesday and Tuesday. He does continue to smoke. Currently asymptomatic on amiodarone drip with heart rate in the 60's bpm but still with mildly elevated blood pressure. Initial troponin elevated at 0.11 with follow-up troponin pending. EKG's initially with rates of 120-130 bpm [facility] History Medical History: Reports:: Arrhythmia, Atrial Fibrillation, Coronary Artery Disease, Gastroesophageal Reflux Disease(GERD), Hyperlipidemia, Hypertension Denies:: Cancer, Diabetes Mellitus Type 1, Diabetes Mellitus Type 2, Internal Pacemaker, Seizures *Have you ever received a pneumonia vaccine?: No (REFUSES) *Have you received a flu vaccine this season?: No (REFUSES) Other Surgeries: Yes: No Previous Surgery, CABG (15 years ago), Cardiac Catheterization, Colonoscopy. No: Pacemaker Amputation: No Fractures: No - *Social History Educational Level: Completed College Smoking Status: Current every day smoker Tobacco Type: cigarettes # Packs/Day (cigarettes): 1 Alcohol Intake: current Alcohol Intake Frequency:: a few times a week Substance Use Type: denies use *Occupational Status:: employed Housing: house Household Members: spouse *Travel in the last 8 weeks: None Family Hx:: Heart Attack, Cancer Meds Home Medications Medication Instructions Recorded Confirmed Type aspirin 81 mg tablet,delayed 81 mg PO DAILY 10/20/18 05/20/19 History release Apixaban [Eliquis] 5 mg PO BID 05/20/19 05/20/19 History Bisoprolol Fumarate [Bisoprolol 5 mg PO DAILY 05/20/19 05/20/19 History 5mg Tablet] Clopidogrel Bisulfate [Clopidogrel 75 mg PO DAILY 05/20/19 05/20/19 History 75mg Tab] Ergocalciferol (Vitamin D2) 50,000 unit PO WEEKLY 05/20/19 05/20/19 History [Drisdol] lisinopriL [Lisinopril 40mg Tablet] 40 mg PO DAILY 05/20/19 05/20/19 History Allergies Allergy/AdvReac Type Severity Reaction Status Date / Time No Known Allergies Allergy Unverified 05/21/19 08:41 Review of Systems - Review of Systems Review of systems:: pertinent systems reviewed and negative unless documented below - *Cardiovascular Reports chest pain, Reports shortness of breath with activity - *Respiratory Reports shortness of breath with activity - *Gastrointestinal Denies nausea, Denies vomiting - *Genitourinary Denies blood in urine - *Musculoskeletal Denies joint pain, Denies back pain - *Neurologic Denies localized weakness, Denies seizure-like activity Exam Vital signs and Labs for Last 24 Hours: Temp Pulse Resp BP Pulse Ox 97.9 F 81 16 145/89 H 96 05/21/19 08:00 05/21/19 07:00 05/21/19 05:00 05/21/19 07:00 05/21/19 07:00 Laboratory Results - last 24 hr 05/20/19 11:17: WBC 7.6, RBC 4.95, Hgb 16.5, Hct 48.2, MCV 97.4 H, MCH 33.3 H, MCHC 34.2, RDW 13.1, Plt Count 227, MPV 7.7, Neut % (Auto) 65.6, Lymph % (Auto) 26.0, [place] % (Auto) 5.0, Eos % (Auto) 2.7, Baso % (Auto) 0.8, Neut # (Auto) 5.0, Lymph # (Auto) 2.0, [place] # (Auto) 0.4, Eos # (Auto) 0.2, Baso # (Auto) 0.1 05/20/19 11:17: Sodium 139, Potassium 4.4, Chloride 107, Carbon Dioxide 24, Anion Gap 12.4, BUN 14, Creatinine 0.70, Estimated Creat Clear 109, Estimated GFR 114, Est GFR ( Amer) 138, Glucose 97, Calcium 9.6, Troponin I 0.11 H 05/20/19 11:17: Total Bilirubin 0.5, Direct Bilirubin 0.0, Conjugated Bilirubin 0.0, Indirect Bilirubin 0.5, Unconjugated Bilirubin 0.5, AST 30, ALT 20, Alkaline Phosphatase 121, Total Protein 7.2, Albumin 4.2 05/20/19 11:17: Magnesium 2.2 05/21/19 05:30: WBC 7.4, RBC 4.57 L, Hgb 14.9, Hct 45.9, MCV 100.6 H, MCH 32.6 H , MCHC 32.4, RDW 13.2, Plt Count 194, MPV 7.9, Neut % (Auto) 72.5, Lymph % (Auto) 19.9, Cole % (Auto) 5.1, Eos % (Auto) 1.9, Baso % (Auto) 0.5, Neut # (Auto) 5.3, Lymph # (Auto) 1.5, Cole # (Auto) 0.4, Eos # (Auto) 0.1, Baso # (Auto) 0.0 05/21/19 05:30: Sodium 139, Potassium 4.0, Chloride 109 H, Carbon Dioxide 24, Anion Gap 10.0, BUN 11, Creatinine 0.70, Estimated Creat Clear 107, Estimated GFR 114, Est GFR ( Amer) 138, Glucose 105 H, Calcium 8.8 I & O for Last 24 hours: Intake & Output 05/18/19 05/19/19 05/20/19 05/21/19 11:59 11:59 11:59 11:59 Intake Total 2203 / 2203 Output Total 1425 / 1425 Balance 778 / 778 Weight 225 lb 218 lb 5.004 oz - *Routine HEENT Exam Head: Present: normocephalic Eye: Present: EOMI, PERRL ENT: Present: mucous membranes moist - *Routine Neck Exam Present: supple. Absent: JVD, carotid bruit - *Routine Respiratory Exam Present: CTA bilaterally. Absent: accessory muscle use, rales, rhonchi, wheezes - *Routine Cardiovascular Exam Present: RRR, irregular rhythm. Absent: murmur, gallop, rubs - *Routine Abdominal Exam Present: soft. Absent: tenderness, distended, guarding - *Routine Extremities Exam Absent: edema, calf tenderness - *Routine Neurological Exam Present: alert, oriented X3, moving all extremities Assessment and Plan (1) Chest pain Current visit: Yes Status: Acute Qualifiers: Chest pain type: unspecified Qualified Code(s): R07.9 - Chest pain, unspecified Category: Medical Code(s): R07.9 - Chest pain, unspecified (2) Elevated troponin Current visit: Yes Status: Acute Category: Medical Code(s): R79.89 - Other specified abnormal findings of blood chemistry (3) Hx of coronary artery bypass graft Current visit: No Status: Chronic Category: Surgical Code(s): Z95.1 - Presence of aortocoronary bypass graft (4) Atrial flutter by electrocardiogram Current visit: Yes Status: Acute Category: Medical Code(s): I48.92 - Unspecified atrial flutter (5) History of atrial fibrillation Current visit: Yes Status: Acute Category: Medical Code(s): Z86.79 - Personal history of other diseases of the circulatory system (6) History of coronary artery disease Current visit: Yes Status: Acute Category: Medical Code(s): Z86.79 - Personal history of other diseases of the circulatory system (7) Hypertension, uncontrolled Current visit: Yes Status: Acute Category: Medical Code(s): I10 - Essential (primary) hypertension (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 NSTEMI possibly due to A. fib/flutter but need to assess CABG and recent stents from 09/2018, Continue ASA and plavix. Plan LHC with grafts later today. 2. A. fib/flutter with RVR, now with CVR on beta pallavi and amiodarone loading. Dose of lovenox this AM. Eliquis held last night and this AM. If he remains in A. flutter/A. fib this PM, will consider cardioversion since he has been compliant with anticoagulation since 09/2018. Start PO amiodarone 200 mg BID this evening for one week then 200 mg daily thereafter. 3. Tobacco use 4. ETOH use 5. History of cardiomyopathy, check Echo today.
--- NOTE | 2019-05-21 10:05 | Progress Note ---
Internal Medicine - PN: Subj *Date: 05/21/19 *Time: 10:09 Interval history: 63-year-old male patient sitting up in bed denies chest pain or shortness of breath at present. Exam Vital signs and Labs for Last 24 Hours: Temp Pulse Resp BP Pulse Ox 97.9 F 81 16 145/89 H 96 05/21/19 08:00 05/21/19 07:00 05/21/19 05:00 05/21/19 07:00 05/21/19 07:00 Laboratory Results - last 24 hr 05/20/19 11:17: WBC 7.6, RBC 4.95, Hgb 16.5, Hct 48.2, MCV 97.4 H, MCH 33.3 H, MCHC 34.2, RDW 13.1, Plt Count 227, MPV 7.7, Neut % (Auto) 65.6, Lymph % (Auto) 26.0, [place] % (Auto) 5.0, Eos % (Auto) 2.7, Baso % (Auto) 0.8, Neut # (Auto) 5.0, Lymph # (Auto) 2.0, [place] # (Auto) 0.4, Eos # (Auto) 0.2, Baso # (Auto) 0.1 05/20/19 11:17: Sodium 139, Potassium 4.4, Chloride 107, Carbon Dioxide 24, Anion Gap 12.4, BUN 14, Creatinine 0.70, Estimated Creat Clear 109, Estimated GFR 114, Est GFR ( Amer) 138, Glucose 97, Calcium 9.6, Troponin I 0.11 H 05/20/19 11:17: Total Bilirubin 0.5, Direct Bilirubin 0.0, Conjugated Bilirubin 0.0, Indirect Bilirubin 0.5, Unconjugated Bilirubin 0.5, AST 30, ALT 20, Alkaline Phosphatase 121, Total Protein 7.2, Albumin 4.2 05/20/19 11:17: Magnesium 2.2 05/21/19 05:30: WBC 7.4, RBC 4.57 L, Hgb 14.9, Hct 45.9, MCV 100.6 H, MCH 32.6 H , MCHC 32.4, RDW 13.2, Plt Count 194, MPV 7.9, Neut % (Auto) 72.5, Lymph % (Auto) 19.9, [place] % (Auto) 5.1, Eos % (Auto) 1.9, Baso % (Auto) 0.5, Neut # (Auto) 5.3, Lymph # (Auto) 1.5, [place] # (Auto) 0.4, Eos # (Auto) 0.1, Baso # (Auto) 0.0 05/21/19 05:30: Sodium 139, Potassium 4.0, Chloride 109 H, Carbon Dioxide 24, Anion Gap 10.0, BUN 11, Creatinine 0.70, Estimated Creat Clear 107, Estimated GFR 114, Est GFR ( Amer) 138, Glucose 105 H, Calcium 8.8 I & O for Last 24 hours: Intake & Output 05/18/19 05/19/19 05/20/19 05/21/19 23:59 23:59 23:59 23:59 Intake Total 1344 / 1344 859 / 859 Output Total 1425 / 1425 Balance 1344 / 894 -566 / -566 Weight 220 lb 218 lb 5.004 oz - Constitutional no acute distress - *Routine HEENT Exam Head: Present: normocephalic, atraumatic. Absent: tenderness of temporal artery Eye: Present: EOMI, PERRL, normal accommodation. Absent: periorbital tenderness ENT: Present: mucous membranes moist - *Routine Neck Exam Present: supple, full ROM, trachea midline. Absent: JVD, tracheal deviation - *Routine Respiratory Exam Present: CTA bilaterally. Absent: accessory muscle use - *Routine Cardiovascular Exam Present: irregular rhythm - *Routine Abdominal Exam Present: soft, normoactive bowel sounds. Absent: tenderness, firm - *Routine Extremities Exam Present: full ROM, pulses intact. Absent: cyanosis, calf tenderness - Routine Back/Spine/Pelvis Exam Back/Spine: Present: full ROM. Absent: CVA tenderness - *Routine Skin Exam Present: intact, warm. Absent: cyanosis, jaundice - *Routine Neurological Exam Present: alert, oriented X3, CN II-XII intact. Absent: hemineglect - Routine Psychiatric Exam Present: normal affect, normal thought process. Absent: anxious Assessment and Plan (1) Chest pain Current visit: Yes Status: Acute Qualifiers: Chest pain type: unspecified Qualified Code(s): R07.9 - Chest pain, unspecified Category: Medical Code(s): R07.9 - Chest pain, unspecified (2) Elevated troponin Current visit: Yes Status: Acute Category: Medical Code(s): R79.89 - Other specified abnormal findings of blood chemistry (3) Hx of coronary artery bypass graft Current visit: No Status: Chronic Category: Surgical Code(s): Z95.1 - Presence of aortocoronary bypass graft (4) Atrial flutter by electrocardiogram Current visit: Yes Status: Acute Category: Medical Code(s): I48.92 - Unspecified atrial flutter (5) History of atrial fibrillation Current visit: Yes Status: Acute Category: Medical Code(s): Z86.79 - Personal history of other diseases of the circulatory system (6) History of coronary artery disease Current visit: Yes Status: Acute Category: Medical Code(s): Z86.79 - Personal history of other diseases of the circulatory system (7) Hypertension, uncontrolled Current visit: Yes Status: Acute Category: Medical Code(s): I10 - Essential (primary) hypertension (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 Oswald, all orders per Dr. Oswald 1. Complete IV amiodarone start p.o. 2. Cardiology consult
--- NOTE | 2019-05-21 17:16 | Cardiology Report ---
APPROVED REPORT EXAM: Comprehensive 2D, Doppler, and color-flow Echocardiogram Associate Professor Of Counseling: Michelle Mancia RVT Ht: 6 ft 3 in Wt: 218lbs BSA: 2.28 BP: 145/89 mmHg Indications: Chest Pain, Palpitations, Atrial Flutter, CAD, Hyperlipidemia, Cardiomyopathy, Hypertension,CABG 2D Dimensions LVOT 1.82 cm (M/F) 1.5-2.5 M-Mode Dimensions RVDd 2.51 cm (0.9-2.6)LVDd 5.58 cm (3.5-5.7) LVDs 4.63 cm (3.5-5.7)IVSd 2.05 cm (0.6-1.1) PWd 0.85 cm (0.6-1.1)EF (Teich) 35.20% FS 17.00% EDV (Teich) 152.40 mL ESV (Teich) 98.80 mL Left Ventricle Left atrium is mildly enlarged, left ventricle is normal size, mild concentric left ventricular hypertrophy, visually estimated ejection fraction of 40 to 45%, there is moderate inferior basal wall hypokinesis. Endocardial surfaces are poorly visualized. Diastolic parameters are inconclusive. Right Ventricle Right atrium and right ventricular mildly enlarged with normal contractility. Aortic Valve Aortic valve is thickened and calcified leaflet chordae display good mobility, there is no aortic stenosis or aortic insufficiency. Mitral Valve Mitral valve is minimally thickened, there is mild mitral regurgitation. Tricuspid Valve Tricuspid valve is grossly normal, there is mild tricuspid regurgitation, tricuspid regurgitation jet velocity is inadequate for calculation of the right ventricular systolic pressure. Pulmonic Valve Pulmonic valve is poorly visualized. Great Vessels Aortic root is normal size. Pericardium No significant pericardial effusion noted. Conclusion 1. Technically difficult study because of the patient fact in poor acoustic windows 2. Mildly enlarged left atrium, normal left ventricular size, moderate concentric left ventricular hypertrophy, visually estimated ejection fraction of 40 to 45% with segmental wall motion abnormality described above. Diastolic parameters are inconclusive. 3. Mildly enlarged right ventricle with normal contractility. 4. Thickened and calcified aortic valve without Doppler evidence of aortic stenosis aortic insufficiency. 5. Mild mitral and tricuspid regurgitation. 6. No significant pericardial effusion noted. Electronically signed by : Iraj Streeter, 05/21/2019 17:15:56
--- NOTE | 2019-05-22 07:43 | Progress Note ---
Subjective Date: 05/22/19 Time: 07:39 Principal diagnosis: NSTEMI, A. flutter Interval history: 63-year-old white male in bed in no acute distress. States he is feeling better this morning. Telemetry reveals continued sinus rhythm with a bradycardic rate in the 50s. Long discussion regarding the need to discontinue all tobacco use and moderate his alcohol intake. Exam Vital signs and Labs for Last 24 Hours: Temp Pulse Resp BP Pulse Ox 98.1 F 52 L 19 137/77 96 05/22/19 04:00 05/22/19 05:00 05/22/19 05:00 05/22/19 05:00 05/22/19 05:00 I & O for Last 24 hours: Intake & Output 05/19/19 05/20/19 05/21/19 05/22/19 11:59 11:59 11:59 11:59 Intake Total 2203 / 2203 1140 / 1140 Output Total 1425 / 1425 950 / 950 Balance 778 / 778 190 / 190 Weight 225 lb 218 lb 5.004 oz 219 lb 4 oz - *Routine HEENT Exam Head: Present: normocephalic Eye: Present: EOMI, PERRL ENT: Present: mucous membranes moist - *Routine Respiratory Exam Present: CTA bilaterally. Absent: accessory muscle use, rales, rhonchi, wheezes - *Routine Cardiovascular Exam Present: RRR. Absent: murmur, gallop, rubs - *Routine Extremities Exam Absent: edema, calf tenderness - *Routine Neurological Exam Present: alert, oriented X3, moving all extremities Progress Note: A&P (1) Chest pain Status: Acute Current Visit: Yes (2) Hx of coronary artery bypass graft Status: Chronic Current Visit: No (3) Atrial flutter by electrocardiogram Status: Acute Current Visit: Yes (4) History of atrial fibrillation Status: Acute Current Visit: Yes (5) History of coronary artery disease Status: Acute Current Visit: Yes (6) Hypertension, uncontrolled Status: Acute Current Visit: Yes (7) senior living current use of anticoagulant Status: Chronic Current Visit: No (8) Tobacco use Status: Chronic Current Visit: No (9) Non-ST elevation MA (NSTEMI) Status: Acute Current Visit: Yes Assessment and Plan for All Diagnoses:: 1. NSTEMI with placement of ELSA to distal Left Main into the circumflex arteries. Continue ASA and plavix for 1 month and then discontinue aspirin. 2. Ischemic cardiomyopathy, continue bisoprolol and lisinopril. Echo this admission shows ejection fraction of 40-45% with inferior wall hypokinesis. This was obtained while the patient was in atrial fibrillation which may account for mild reduction in the ejection fraction. 3. Hypertension, improved with addition of Norvasc 5 mg daily to bisoprolol and lisinopril therapy 4. Atrial fibrillation/flutter with RVR, cardioverted to sinus rhythm after IV amiodarone loading. Continue amiodarone 200 mg twice daily for 1 week and then will reduce to 200 mg daily. Continue Eliquis 5 mg twice daily. 5. GERD, continue pantoprazole for GI prophylaxis in the setting of triple therapy with aspirin, Plavix and Eliquis. 6. Tobacco abuse, strongly encouraged discontinuation and offered nicotine patches for help but patient declined at this time 7. History of alcohol abuse, discussed severe reduction and moderation 8. Hyperlipidemia, resume statin therapy. Okay for discharge home from cardiology standpoint. Follow-up in our office in 1 week. Limited activity for the next week with weight restriction of less than 30 pounds. Discharge meds: Aspirin 81 mg daily, Plavix 75 mg daily, Eliquis 5 mg twice daily, bisoprolol 5 mg daily, lisinopril 40 mg daily, amiodarone 200 mg twice daily, Protonix 40 mg daily, Lipitor 80 mg daily and Norvasc 5 mg daily
--- NOTE | 2019-05-22 08:11 | Electrocardiograph Report ---
APPROVED REPORT Exam: Resting ECG HR:129 bpm ECG Measurements Heart Rate 129 AXES MT 168 P 82 QRSd 110 QRS 91 QT 294 T167 QTc 430 <Conclusion> Sinus tachycardia Possible Left atrial enlargement Rightward axis Inferior infarct, possibly acute T wave abnormality, consider lateral ischemia ACUTE [place] Consider right ventricular involvement in acute inferior infarct Abnormal ECG Electronically signed by : Judson Atkinson, 05/22/2019 08:11:28
--- NOTE | 2019-05-22 08:11 | Electrocardiograph Report ---
APPROVED REPORT Exam: Resting ECG HR:82 bpm ECG Measurements Heart Rate 82 AXES QRSd 114 QRS 72 QT 422 T97 QTc 493 <Conclusion> Atrial fibrillation with a competing junctional pacemaker Inferior infarct, possibly acute ACUTE [place] Consider right ventricular involvement in acute inferior infarct Abnormal ECG Electronically signed by : Judson Atkinson, 05/22/2019 08:11:03
--- NOTE | 2019-05-22 08:11 | Electrocardiograph Report ---
APPROVED REPORT Exam: Resting ECG HR:127 bpm ECG Measurements Heart Rate 127 AXES QRSd 106 QRS 75 QT 398 T87 QTc 578 <Conclusion> Accelerated Junctional rhythm ST elevation, consider inferolateral injury or acute infarct ACUTE [place] Consider right ventricular involvement in acute inferior infarct Abnormal ECG Electronically signed by : Judson Atkinson, 05/22/2019 08:11:13
--- NOTE | 2019-05-22 08:34 | Discharge Summary ---
General - General Admission date:: 05/20/19 Discharge date: 05/22/19 HPI HPI: 63 YOM sitting up in bed, denies CP or SOA. Discussed D/C today and he is agreeable to this. this pt had episode of chest pain presents to ed with c/o middle neck pain and e pigastric pain that began yesterday. pt states that he felt this way the last time he had to have stents. 63-year-old male presents with chief complaint of having chest pain and discomfort along with feeling of discomfort on the neck both sides for the last 2 days. Patient has history of coronary artery disease with CABG done 15 years ago and 2 stents placed within the last 1 year. His corporate affairs manager is Dr. Nguyen. He states he felt like he was having another heart attack. He feels the pain in the lower part of the chest on the midline. The pain is not that much. Denies having any shortness of breath. Denies having any dizziness. Denies having any nausea or vomiting. pt was discussed with card-as in communication with Dr. Nguyen since about 11:11 AM. We had sent him the first EKG and then we were consulting with him over the phone regarding the management plan. Wanted us to give Lopressor and amiodarone and then keep the patient on amiodarone drip. He was informed about the troponin and the patient's clinical status. At about 1150 hrs. the patient was asymptomatic. He denies having any neck discomfort or chest discomfort. Dr. Nguyen wants to continue the current management plan. He states that the elevation in troponin is secondary to atrial fibrillation/flutter. Since the symptoms started more than 12 hours ago he does not think that the patient needs to be taken to cardiac cath immediately. He would follow-up with the patient in the morning. He wants us to continue the patient management with amiodarone and aspirin as well as Plavix or Brilinta and Lovenox and continue the monitoring. pt was admitted - Hospital Course Hospital Course: 63-year-old male presents with chief complaint of having chest pain and discomfort along with feeling of discomfort on the neck both sides for the last 2 days. Patient has history of coronary artery disease with CABG done 15 years ago and 2 stents placed within the last 1 year. His corporate affairs manager is Dr. Nguyen. He states he felt like he was having another heart attack. He feels the pain in the lower part of the chest on the midline. The pain is not that much. Denies having any shortness of breath. Denies having any dizziness. Denies having any nausea or vomiting. pt was discussed with card-as in communication with Dr. Nguyen since about 11:11 AM. We had sent him the first EKG and then we were consulting with him over the phone regarding the management plan. Wanted us to give Lopressor and amiodarone and then keep the patient on amiodarone drip. He was informed about the troponin and the patient's clinical status. At about 1150 hrs. the patient was asymptomatic. He denies having any neck discomfort or chest discomfort. Dr. Nguyen wants to continue the current management plan. He states that the elevation in troponin is secondary to atrial fibrillation/flutter. Since the symptoms started more than 12 hours ago he does not think that the patient needs to be taken to cardiac cath immediately. He would follow-up with the patient in the morning. He wants us to continue the patient management with amiodarone and aspirin as well as Plavix or Brilinta and Lovenox and continue the monitoring. pt was admitted - 05/21/19 Card Cath: IMPRESSION 1. Severe distal left main coronary artery stenosis extending into the circumflex 2. Patent stent in the mid left main coronary artery 3. 100% occlusion of the ostial left anterior descending and right coronary artery 4. Patent left internal mammary artery to left anterior descending 5. Patent stent in the right subclavian artery 6. Patent right internal mammary artery to distal right coronary artery 7. Preserved normal left ventricular systolic function 8. Normal left ventricular end-diastolic pressure 9. Successful angioplasty and stenting of the distal left main coronary artery with a resolute [place] drug-eluting stent resulting in 0% residual stenosis 10. Successful angioplasty and stenting of the proximal first obtuse marginal branch of the circumflex resulting in 0% residual stenosis 11. Successful synchronized electrical cardioversion of atrial flutter to normal sinus rhythm with 100 J synchronized electrical cardioversion 12. Successful placement of an Angio-Seal device in the right common femoral artery Per Dr. Delgado PLAN 1. Patient will continue with aggressive medical therapy. He now has full revascularization. He is also back to normal sinus rhythm. Plavix will be continued at 75 mg daily. He will also remain on anticoagulation for his underlying atrial fibrillation/flutter. Follow-up in cardiology clinic 1 to 2 weeks after discharge Per Dr. Delgado 1. NSTEMI with placement of ELSA to distal Left Main into the circumflex arteries. Continue ASA and plavix for 1 month and then discontinue aspirin. 2. Ischemic cardiomyopathy, continue bisoprolol and lisinopril. Echo this admission shows ejection fraction of 40-45% with inferior wall hypokinesis. This was obtained while the patient was in atrial fibrillation which may account for mild reduction in the ejection fraction. 3. Hypertension, improved with addition of Norvasc 5 mg daily to bisoprolol and lisinopril therapy 4. Atrial fibrillation/flutter with RVR, cardioverted to sinus rhythm after IV amiodarone loading. Continue amiodarone 200 mg twice daily for 1 week and then will reduce to 200 mg daily. Continue Eliquis 5 mg twice daily. 5. GERD, continue pantoprazole for GI prophylaxis in the setting of triple therapy with aspirin, Plavix and Eliquis. 6. Tobacco abuse, strongly encouraged discontinuation and offered nicotine patches for help but patient declined at this time 7. History of alcohol abuse, discussed severe reduction and moderation 8. Hyperlipidemia, resume statin therapy. Okay for discharge home from cardiology standpoint. Follow-up in our office in 1 week. Limited activity for the next week with weight restriction of less than 30 pounds. Discharge meds: Aspirin 81 mg daily, Plavix 75 mg daily, Eliquis 5 mg twice daily, bisoprolol 5 mg daily, lisinopril 40 mg daily, amiodarone 200 mg twice daily, Protonix 40 mg daily, Lipitor 80 mg daily and Norvasc 5 mg daily Per Pj HAN Patient will be discharged home today with follow-up with cardiology in 1 to 2 weeks and follow-up in primary care in 1 to 2 weeks Objective Vital signs: Temp Pulse Resp BP Pulse Ox 98.1 F 52 L 19 137/77 96 05/22/19 04:00 05/22/19 05:00 05/22/19 05:00 05/22/19 05:00 05/22/19 05:00 no acute distress - *Routine HEENT Exam Head: Present: normocephalic. Absent: tenderness of temporal artery Eye: Present: EOMI, normal accommodation. Absent: periorbital tenderness ENT: Present: mucous membranes moist. Absent: sinus tenderness - *Routine Neck Exam Present: supple, full ROM, trachea midline. Absent: JVD, tracheal deviation - *Routine Respiratory Exam Present: CTA bilaterally. Absent: accessory muscle use - *Routine Cardiovascular Exam Present: RRR - *Routine Abdominal Exam Present: soft, normoactive bowel sounds. Absent: tenderness, firm - *Routine Extremities Exam Present: full ROM, pulses intact. Absent: calf tenderness - Routine Back/Spine/Pelvis Exam Back/Spine: Present: full ROM. Absent: CVA tenderness - *Routine Skin Exam Comments: Drag R Groin, small amt blood noted and outlined - *Routine Neurological Exam Present: alert, oriented X3 - Routine Psychiatric Exam Present: normal affect, normal thought process Results - Additional Comments With Dr. Oswald, all orders per Dr. Oswald 1. We will discharge home today 2. Cardiology seen and recommends: 1. NSTEMI with placement of ELSA to distal Left Main into the circumflex arteries. Continue ASA and plavix for 1 month and then discontinue aspirin. 2. Ischemic cardiomyopathy, continue bisoprolol and lisinopril. Echo this admission shows ejection fraction of 40-45% with inferior wall hypokinesis. This was obtained while the patient was in atrial fibrillation which may account for mild reduction in the ejection fraction. 3. Hypertension, improved with addition of Norvasc 5 mg daily to bisoprolol and lisinopril therapy 4. Atrial fibrillation/flutter with RVR, cardioverted to sinus rhythm after IV amiodarone loading. Continue amiodarone 200 mg twice daily for 1 week and then will reduce to 200 mg daily. Continue Eliquis 5 mg twice daily. 5. GERD, continue pantoprazole for GI prophylaxis in the setting of triple therapy with aspirin, Plavix and Eliquis. 6. Tobacco abuse, strongly encouraged discontinuation and offered nicotine p atches for help but patient declined at this time 7. History of alcohol abuse, discussed severe reduction and moderation 8. Hyperlipidemia, resume statin therapy. Okay for discharge home from cardiology standpoint. Follow-up in our office in 1 week. Limited activity for the next week with weight restriction of less than 30 pounds. 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 Status: Chronic (8) Tobacco use Status: Chronic (9) Non-ST elevation NE (NSTEMI) Status: Acute Discharge Plan - Patient Discharge Instructions ACTIVITY: Continue current activity DIET: continue same diet Patient Instructions: Essential Hypertension, Atrial Flutter, DI for Atrial Flutter - Follow up Plan Follow up with: Hasmukh Nguyen MD [Staff Physician] - 2 weeks Beny Oswald MD [Staff Physician] - 2 weeks Disposition: Home, Self-Fci Medications: Home Medications Medication Instructions Recorded Confirmed Type Apixaban [Eliquis] 5 mg PO BID 05/20/19 05/20/19 History Clopidogrel Bisulfate [Clopidogrel 75 mg PO DAILY 05/20/19 05/20/19 History 75mg Tab] Ergocalciferol (Vitamin D2) 50,000 unit PO WEEKLY 05/20/19 05/20/19 History [Drisdol] Amiodarone HCl [Cordarone 200mg 200 mg PO BID 30 Days #60 tab 05/22/19 Rx tablet] Amlodipine Besylate [Norvasc 5mg 5 mg PO DAILY 30 Days #30 tab 05/22/19 Rx tablet] Apixaban [Eliquis 5mg Tablet] 5 mg PO BID 30 Days #60 tab 05/22/19 Rx Aspirin [Low Dose Aspirin EC] 81 mg PO DAILY 30 Days #30 tab 05/22/19 Rx Atorvastatin Calcium [Lipitor 40mg 80 mg PO HS 30 Days #30 tab 05/22/19 Rx Tablet] Bisoprolol Fumarate [Bisoprolol 5 mg PO DAILY 30 Days #30 tab 05/22/19 Rx 5mg Tablet] Clopidogrel Bisulfate [Plavix 75mg 75 mg PO DAILY 30 Days #30 tab 05/22/19 Rx Tab] Pantoprazole Sodium [Protonix 40mg 40 mg PO DAILY 30 Days #30 05/22/19 Rx tablet] tablet. lisinopriL [Lisinopril 40mg Tablet] 40 mg PO DAILY 30 Days #30 tab 05/22/19 Rx Prescriptions/Medication Reconciliation: New Amiodarone HCl [Cordarone 200mg tablet] 200 mg PO BID 30 Days #60 tab Apixaban [Eliquis 5mg Tablet] 5 mg PO BID 30 Days #60 tab Atorvastatin Calcium [Lipitor 40mg Tablet] 80 mg PO HS 30 Days #30 tab Clopidogrel Bisulfate [Plavix 75mg Tab] 75 mg PO DAILY 30 Days #30 tab Amlodipine Besylate [Norvasc 5mg tablet] 5 mg PO DAILY 30 Days #30 tab Pantoprazole Sodium [Protonix 40mg tablet] 40 mg PO DAILY 30 Days #30 tablet. Continued Bisoprolol Fumarate [Bisoprolol 5mg Tablet] 5 mg PO DAILY 30 Days #30 tab lisinopriL [Lisinopril 40mg Tablet] 40 mg PO DAILY 30 Days #30 tab Aspirin [Low Dose Aspirin EC] 81 mg PO DAILY 30 Days #30 tab Ergocalciferol (Vitamin D2) [Drisdol] 50,000 unit PO WEEKLY Clopidogrel Bisulfate [Clopidogrel 75mg Tab] 75 mg PO DAILY No Action Apixaban [Eliquis] 5 mg PO BID - Problem Reconciliation Problems Reviewed?: Yes
--- NOTE | 2019-05-23 16:36 | Electrocardiograph Report ---
APPROVED REPORT Exam: Resting ECG HR:56 bpm ECG Measurements Heart Rate 56 AXES WY 202 P 25 QRSd 128 QRS 72 QT 500 T134 QTc 482 <Conclusion> Sinus bradycardia with premature atrial complexes with aberrant conduction Nonspecific intraventricular block Possible Inferior infarct, age undetermined Abnormal ECG Electronically signed by : Judson Atkinson, 05/23/2019 16:36:10
== END 2019-05-22 09:41 | disposition home or self-care (01) ==
LOC: 2ND 11:02 → ER 11:02 → 2ND 13:42
PROVIDERS: ADMIT Emergency Medicine; ATTEND Emergency Medicine
CPT/HCPCS: 36415; 71010; 71045; 80048; 80076; 83735; 84484; 85025; 85347; 92928; 92960; 93005; 93306; 93459; 96365; 96367; 96375; 99152; 99153; 99285; C1725; C1760; C1769; C1876; C1894; C9600; G0378; J0282; J1644; J7060; Q9967

== ENCOUNTER → 2019-07-05 12:06 | Outpatient (CLI) | payer OTHER, SELFPAY ==
[2019-07-05 13:20] LABS: Bilirubin,Unconjugated 0.5 mg/dL (0.0-1.1)
[2019-07-05 13:21] LABS: Alanine Aminotransferase 17 U/L (12-78); Albumin Level 3.9 g/dl (3.5-5.0); Alkaline Phosphatase 98 U/L (38-126); Aspartate Amino Transferase 20 U/L (17-59); Bilirubin,Indirect 0.6 mg/dL (0.0-0.9); Bilirubin,Total 0.6 mg/dl (0.2-1.3); Chol/HDL Ratio 3.8 (1-3.5); Cholesterol 145 mg/dl (140-200); HDL Cholesterol 38 mg/dl (40-60); Total Protein,Serum 6.3 g/dl (6.3-8.2); Triglycerides 114 mg/dl (30-150); VLDL Cholesterol 23 mg/dL (0-40)
[2019-07-05 13:32] LABS: Direct LDL Cholesterol 110.03 mg/dL (100-129)
[2019-07-05 13:38] LABS: Free T4 (Free Thyroxine) 1.25 ng/dl (0.78-2.19)
[2019-07-05 13:51] LABS: Thyroid Stimulating Hormone 3.63 uIU/mL (0.465-4.68)
== END ==
PROVIDERS: Visit Provider Internal Medicine Cardiovascular Disease
DX: I25.10 Atherosclerotic heart disease of native coronary artery without angina pectoris (principal); I25.5 Ischemic cardiomyopathy; I10 Essential (primary) hypertension; I48.92 Unspecified atrial flutter; I51.9 Heart disease, unspecified; K21.9 Gastro-esophageal reflux disease without esophagitis; Z72.0 Tobacco use; Z79.899 Other long term (current) drug therapy; Z95.1 Presence of aortocoronary bypass graft
CPT/HCPCS: 36415; 80061; 80076; 84439; 84443

== ENCOUNTER → 2020-04-08 11:22 | Outpatient (CLI) | payer MEDICAID, SELFPAY ==
--- NOTE | 2020-04-08 11:35 | XR_ITS ---
PROCEDURE: XR TIBIA FIBULA RT 2V CLINICAL INDICATION: horse fell on his leg Swelling from the knee down and pain COMPARISON: CR XR ANKLE RT MIN 3V from 04/08/2020 FINDINGS: There is a mildly oblique fracture of the proximal fibular diaphysis. No additional proximal or distal fracture. There is a large suprapatellar osteophyte and small knee joint effusion. This raises possibility of injury to the soft tissues within the knee. The joint spaces are well-preserved. No additional significant degenerative/arthritic changes. No erosive changes evident. IMPRESSION: Mildly oblique acute fracture of the proximal fibula. Dictated by: Adela Leal 04/08/2020 12:30 Adela Leal in [facility] 04/08/2020 12:30
--- NOTE | 2020-04-08 11:35 | XR_ITS ---
PROCEDURE: XR ANKLE RT MIN 3V CLINICAL INDICATION: horse fell on leg Swelling from the knee down and pain COMPARISON: Tib fib x-rays from same date. FINDINGS: There is no acute fracture or dislocation. The ankle mortise is intact. There is no separation of the distal tibia fibular articulation. There is no significant degenerative change. IMPRESSION: No acute findings. Dictated by: Adela Leal 04/08/2020 12:32 Adela Leal in [facility] 04/08/2020 12:32
--- NOTE | 2020-04-08 11:35 | XR_ITS ---
PROCEDURE: XR PELVIS 1-2V CLINICAL INDICATION: horse fell on leg Swelling from the knee down, pain COMPARISON: CR XR TIBIA FIBULA RT 2V from 04/08/2020 CR XR ANKLE RT MIN 3V from 04/08/2020 TECHNIQUE: XR Pelvis AP View FINDINGS: No fracture or dislocation is evident. There is partial visualization degenerative changes spine. There is hip degenerative change. Bilateral ossicles adjacent to the bilateral acetabular roofs are well corticated and old. No lytic or blastic change. IMPRESSION: No acute findings. Dictated by: Adela Leal 04/08/2020 12:25 Adela Leal in [facility] 04/08/2020 12:25
== END ==
PROVIDERS: PCP Emergency Medicine; Visit Provider Emergency Medicine
DX: S89.91XA Unspecified injury of right lower leg, initial encounter (principal)
CPT/HCPCS: 72170; 73590; 73610

== ENCOUNTER → 2020-04-17 08:05 | Outpatient (CLI) | payer MEDICAID, SELFPAY ==
--- NOTE | 2020-04-17 08:13 | XR_ITS ---
PROCEDURE: XR CHEST 2V CLINICAL HISTORY: on amio therapy Heart disease COMPARISON: CR CXR1 CHEST-PORTABLE from 07/11/2013 CR XR CHEST 2V from 10/16/2018 CR XR CHEST PORTABLE from 05/20/2019 FINDINGS: There has been a prior median sternotomy. Vascular stent is present in the right brachiocephalic region. Normal heart size. There is a 8 mm nodular density projecting over the right lower lobe and may be due to a granuloma probably not significantly changed. COPD changes. No acute bony abnormalities. IMPRESSION: As above, no acute finding. COPD. No evidence of amiodarone lung toxicity. Dictated by: Long Adames MD 04/17/2020 17:06 Long Adames MD in [facility] 04/17/2020 17:06
== END ==
PROVIDERS: PCP Emergency Medicine; Visit Provider Internal Medicine Cardiovascular Disease
DX: I25.10 Atherosclerotic heart disease of native coronary artery without angina pectoris (principal); I10 Essential (primary) hypertension; I48.92 Unspecified atrial flutter; Z72.0 Tobacco use; Z79.01 Long term (current) use of anticoagulants; Z79.899 Other long term (current) drug therapy; Z95.1 Presence of aortocoronary bypass graft
CPT/HCPCS: 71046

== ENCOUNTER → 2020-04-21 09:41 | Outpatient (CLI) | payer MEDICAID, SELFPAY ==
[2020-04-21 10:12] LABS: Basophils # 0.1 K/mm3 (0-0.2); Basophils % 0.7 % (0.1-2.0); Eosinophils # 0.1 K/mm3 (0.0-0.4); Hematocrit 46.3 % (42.0-52.0); Hemoglobin 15.4 g/dL (14.1-18.0); Lymphocytes # 1.4 K/mm3 (0.7-4.5); Lymphocytes % 18.9 % (10-50); Mean Corpuscular HGB Conc 33.3 g/dL (31.8-35.4); Mean Corpuscular Hemoglobin 33.1 pg (27.0-31.2); Mean Corpuscular Volume 99.3 fl (80-94); Mean Platelet Volume 7.8 fl (7.4-10.4); Monocytes # 0.3 K/mm3 (0.1-1.0); Monocytes % 3.4 % (1.7-9.3); Neutrophils # 5.8 K/mm3 (1.8-7.8); Platelet Count 263 K/mm3 (142-424); Red Blood Count 4.66 M/mm3 (4.60-6.20); Red Cell Distribution Width 13.6 % (11.5-17.5); White Blood Count 7.6 K/mm3 (4.8-10.8)
[2020-04-21 10:41] LABS: INR 0.96 (0.9-1.1); Prothrombin Time 11.4 seconds (9.4-11.8)
[2020-04-21 11:19] LABS: Chloride 108 mmol/L (98-107); Potassium 4.5 mmoL/L (3.5-5.1); Sodium 139 mmol/L (136-145)
[2020-04-21 11:21] LABS: Alanine Aminotransferase 19 U/L (12-78); Aspartate Amino Transferase 26 U/L (17-59); Bilirubin,Unconjugated 0.6 mg/dL (0.0-1.1); Blood Urea Nitrogen 13 mg/dl (9-20); Estimated Glomerular Filt Rate 85 ml/min (>60); GFR (African American) 103 ML/MIN (>60)
[2020-04-21 11:22] LABS: Albumin Level 4.2 g/dl (3.5-5.0); Alkaline Phosphatase 136 U/L (38-126); Anion Gap 7.5 mEq/L (5-15); Bilirubin,Direct 0.2 mg/dl (0.0-0.4); Bilirubin,Indirect 0.7 mg/dL (0.0-0.9); Bilirubin,Total 0.9 mg/dl (0.2-1.3); Calcium 9.6 mg/dl (8.4-10.2); Carbon Dioxide 28 mmol/L (22.0-30.0); Chol/HDL Ratio 4.3 (1-3.5); Cholesterol 182 mg/dl (140-200); Glucose 95 mg/dl (74-100); HDL Cholesterol 42 mg/dl (40-60); Total Protein,Serum 6.9 g/dl (6.3-8.2); Triglycerides 151 mg/dl (30-150); VLDL Cholesterol 30 mg/dL (0-40)
[2020-04-21 11:33] LABS: Direct LDL Cholesterol 112.67 mg/dL (100-129)
[2020-04-21 11:40] LABS: Free Thyroxine Index 4.8 ug/dL (5.93-13.13); T4 (Thyroxine) 11.2 ug/dl (5.53-11.0); Triiodothryronine (T3) Uptake 43 % (23.5-40.5)
[2020-04-21 11:54] LABS: Thyroid Stimulating Hormone 2.35 uIU/mL (0.465-4.68)
== END ==
PROVIDERS: Visit Provider Internal Medicine Cardiovascular Disease
DX: I25.10 Atherosclerotic heart disease of native coronary artery without angina pectoris (principal); I11.9 Hypertensive heart disease without heart failure; R94.31 Abnormal electrocardiogram [ECG] [EKG]; I25.5 Ischemic cardiomyopathy; K21.9 Gastro-esophageal reflux disease without esophagitis; Z72.0 Tobacco use; Z86.79 Personal history of other diseases of the circulatory system; Z95.1 Presence of aortocoronary bypass graft
CPT/HCPCS: 36415; 80048; 80061; 80076; 84436; 84443; 84479; 85025; 85610

== ENCOUNTER 2020-04-25 09:09 | Outpatient (CLI) | payer MEDICAID, SELFPAY ==
[2020-04-25 15:10] LABS: PHA INR Fingerstick 2.2 (0.9-1.1)
== END 2020-04-25 15:16 | disposition home or self-care (01) ==
LOC: LAB 09:10 → ACC 09:32
PROVIDERS: PCP Emergency Medicine; Visit Provider Internal Medicine Cardiovascular Disease
DX: Z51.81 Encounter for therapeutic drug level monitoring (principal); Z79.01 Long term (current) use of anticoagulants; I48.91 Unspecified atrial fibrillation
CPT/HCPCS: 85610; G0463

== ENCOUNTER 2020-05-02 09:51 | Outpatient (CLI) | payer MEDICAID, SELFPAY | END 2020-05-02 11:01 | disposition home or self-care (01) | LOC: ACC 09:53 | PROVIDERS: PCP Emergency Medicine; Visit Provider Internal Medicine Cardiovascular Disease | DX: Z51.81 Encounter for therapeutic drug level monitoring (principal); Z79.01 Long term (current) use of anticoagulants; I48.91 Unspecified atrial fibrillation | CPT/HCPCS: 85610; 99211; G0463 ==

== ENCOUNTER 2020-05-16 10:46 | Outpatient (CLI) | payer MEDICAID, SELFPAY ==
[2020-05-16 11:28] LABS: PHA INR Fingerstick 2.3 (0.9-1.1)
== END 2020-05-16 11:29 | disposition home or self-care (01) ==
LOC: ACC 10:47
PROVIDERS: PCP Emergency Medicine; Visit Provider Internal Medicine Cardiovascular Disease
DX: I48.91 Unspecified atrial fibrillation (principal); Z79.01 Long term (current) use of anticoagulants
CPT/HCPCS: 85610; 99211; G0463

== ENCOUNTER 2020-05-20 12:26 | Emergency (ER) | payer MEDICAID, SELFPAY ==
[2020-05-20 12:34] VITALS: BP 169/73; PULSE 53; RESP 20; TEMP 36.8; O2SAT 97; BMI 29.3
--- NOTE | 2020-05-20 12:41 | [facility].EDUROGM ---
ED Disposition Clinical Impression: Hematuria Qualifiers: Hematuria type: gross Qualified Code(s): R31.0 - Gross hematuria Disposition: Home, Self-Care Condition on Discharge: Good Additional Instructions: Please follow-up with the urologist within the next few weeks to be evaluated for possible cancer in your bladder or other parts of your urinary system. Do this even if your symptoms resolve completely. Continue taking all medications as prescribed. Follow-up with your primary care physician within the next week to set up the appointment with the urologist. Referrals: Beny Oswald MD [Primary Care Provider] - - Critical Care Critical Care Time: No Attestation: On 05/20/20, the high probability of a clinically significant, sudden or life threatening deterioration of the following system(s) required my full and direct attention, intervention and personal management. The time I documented below is in addition to time spent performing reported procedures but includes the following listed in this critical care notation. Medical Decision Making - Law Inquiry Pt receiving controlled substance: No Vital Signs: 05/20/20 12:34 Temperature 98.3 F Temperature Source Oral Pulse Rate [Right Brachial] 53 L Respiratory Rate 20 Blood Pressure [Right Arm] 169/73 H Blood Pressure Mean [Right Arm] 105 Blood Pressure Source [Right Arm] Automatic Cuff Blood Pressure Position [Right Arm] Supine 02 Sat by Pulse Oximetry 97 Oxygen Delivery Method Room Air - Lab Data Lab Results 05/20/20 12:30: Urine Color Red, Urine Appearance Turbid, Urine pH 6.0, Ur Specific [place] 1.025, Urine Protein 2+, Urine Glucose (UA) Negative, Urine Ketones Negative, Urine Blood 3+, Urine Nitrate Positive, Urine Bilirubin 1+ A, Urine Urobilinogen 1.0, Ur Leukocyte Esterase Trace, Urine RBC 20-50, Urine WBC 3-5, Ur Squamous Epith Cells 3-5, Urine Bacteria None 05/20/20 12:37: WBC 7.5, RBC 4.51 L, Hgb 14.6, Hct 45.7, MCV 101.3 H, MCH 32.4 H, MCHC 32.0, RDW 14.0, Plt Count 239, MPV 8.0, Neut % (Auto) 68.8, Lymph % (Auto) 24.9, [place] % (Auto) 4.8, Eos % (Auto) 0.9, Baso % (Auto) 0.5, Neut # (Auto) 5.2, Lymph # (Auto) 1.9, [place] # (Auto) 0.4, Eos # (Auto) 0.1, Baso # (Auto) 0.0 05/20/20 13:06: PT 21.7 H, INR 1.93 H, APTT 37.9 H Result diagrams: 05/20/20 12:37 Medical Decision Narrative: The patient presents to the emergency department complaining of painless hematuria. He was recently started on warfarin. On physical examination the patient is currently in a regular rate and rhythm. The patient denies any pain. He denies any dysuria. The patient's INR is not supratherapeutic. The patient is not severely anemic. I explained to the patient that he will require follow-up with a urologist for cystoscopy and work-up for possible urinary neoplasm. I explained to him that he has to do so even if his symptoms resolve completely. Unfortunately, the urologist is currently out of state and will return on 25 May. Therefore, I have advised the patient to follow-up with his primary care physician within the next week to set up an appointment with the urologist. I also advised the patient to return to the emergency department if his symptoms worsen in any way. The patient has agreed to do so and has expressed understanding of these instructions. Male Urogenital HPI - General Chief complaint: Urogenital-Male Stated complaint: blood in urine Time Seen by Provider: 05/20/20 12:40 Mode of Arrival: Ambulatory Source of Information: Patient Limitations: No Limitations Description of Symptoms (Recalled from ER Triage Doc. by RN): when pt urinated this morning he noticed blood in his urine - History of Present Illness HPI Narrative: U[facility]ency department complaining of painless hematuria after having started warfarin for atrial fibrillation a few weeks ago. Onset (ago): hour(s) (1) - Related Data Previous Rx's Medication Instructions Recorded aspir
[2020-05-20 12:53] LABS: Microscopic, Urine URINE MICROSCOPIC (MICROSCOPIC)
[2020-05-20 12:55] LABS: Appearance,Urine TURBID (Clear); Blood, Urine 3+ (Negative); Color,Urine RED (Yellow); Glucose,Urine (UA) Negative (Negative); Ketones,Urine Negative (Negative); Leukocyte Esterase,Urine TRACE (Negative); Nitrate,Urine POSITIVE (Negative); Protein,Urine 2+ (Negative); Specific Gravity, Urine 1.025 (1.005-1.030)
[2020-05-20 13:07] LABS: Basophils % 0.5 % (0.1-2.0); Eosinophils # 0.1 K/mm3 (0.0-0.4); Eosinophils % 0.9 % (0.1-12.0); Hematocrit 45.7 % (42.0-52.0); Hemoglobin 14.6 g/dL (14.1-18.0); Lymphocytes # 1.9 K/mm3 (0.7-4.5); Lymphocytes % 24.9 % (10-50); Mean Corpuscular Hemoglobin 32.4 pg (27.0-31.2); Mean Corpuscular Volume 101.3 fl (80-94); Monocytes # 0.4 K/mm3 (0.1-1.0); Monocytes % 4.8 % (1.7-9.3); Neutrophils # 5.2 K/mm3 (1.8-7.8); Neutrophils % 68.8 % (37.0-80.0); Platelet Count 239 K/mm3 (142-424); Red Blood Count 4.51 M/mm3 (4.60-6.20); White Blood Count 7.5 K/mm3 (4.8-10.8)
[2020-05-20 13:12] LABS: Bilirubin,Urine 1+ (Negative)
[2020-05-20 13:17] LABS: RBC,Urine 20-50 #/hpf (0-3)
[2020-05-20 13:27] LABS: INR 1.93 (0.9-1.1); Prothrombin Time 21.7 seconds (10.1-12.5)
[2020-05-20 13:28] LABS: Activated Partial Thrombo Time 37.9 seconds (22.8-30.6)
[2020-05-20 14:00] VITALS: BP 132/78; PULSE 78; RESP 16; TEMP 36.8; O2SAT 96
== END 2020-05-20 14:03 | disposition home or self-care (01) ==
PROVIDERS: Emergency Provider Emergency Medicine; PCP Emergency Medicine
DX: R31.9 Hematuria, unspecified (principal); I48.91 Unspecified atrial fibrillation; I10 Essential (primary) hypertension; E78.5 Hyperlipidemia, unspecified; K21.9 Gastro-esophageal reflux disease without esophagitis; I25.10 Atherosclerotic heart disease of native coronary artery without angina pectoris; F17.210 Nicotine dependence, cigarettes, uncomplicated; Z79.899 Other long term (current) drug therapy
CPT/HCPCS: 36415; 81001; 85025; 85610; 85730; 99282

== ENCOUNTER → 2020-06-18 11:27 | Outpatient (CLI) | payer MEDICAID, SELFPAY ==
[2020-06-18 14:30] LABS: Blood Urea Nitrogen 17 mg/dl (9-20); Estimated Glomerular Filt Rate 113 ml/min (>60); GFR (African American) 137 ML/MIN (>60)
[2020-06-18 15:03] LABS: Coronavirus 19 IgG Antibody Positive (Negative); Coronavirus 19 IgM Antibody Negative (Negative)
== END ==
PROVIDERS: Visit Provider Urology
DX: Z01.812 Encounter for preprocedural laboratory examination (principal); Z20.822 Contact with and (suspected) exposure to COVID-19; R31.0 Gross hematuria; Z51.81 Encounter for therapeutic drug level monitoring; Z79.01 Long term (current) use of anticoagulants; I48.91 Unspecified atrial fibrillation
CPT/HCPCS: 36415; 82565; 84520; 86328

== ENCOUNTER → 2020-06-19 08:36 | Outpatient (CLI) | payer MEDICAID, SELFPAY ==
--- NOTE | 2020-06-19 08:36 | CT_ITS ---
PROCEDURE: CT ABDOMEN PELVIS W CON CLINICAL INDICATION: gross hematuria X2wks ago COMPARISON: No exams were available for comparison TECHNIQUE: IV Contrast: 75ML Isovue 370 Oral Contrast None Axial images obtained with sagittal and coronal reformats. All CT scans at the facility use one or more dose reduction, viz: automated exposure control, ma/kV adjustment per patient size (including targeted exams where dose is matched to indication, i.e. head), or iterative reconstruction technique. FINDINGS: LOWER THORAX: No acute finding ABDOMEN & PELVIS: There is a nonspecific 7 mm hypodensity in the right hepatic lobe anteriorly and 3 mm hypodensity in the right hepatic lobe posteriorly. These are too small to categorize. No radiopaque gallstones. The spleen, adrenal glands, and pancreas has an unremarkable appearance. No obvious renal or ureteral calculi. No hydronephrosis. No renal mass. Urinary bladder has an unremarkable appearance. There is an infrarenal fusiform abdominal aortic aneurysm measuring 4.2 cm transverse and 4.6 cm AP. There is a small area of protrusion of the aortic wall along the inferior aspect of the aneurysm on the left best demonstrated on coronal image 35 series 601. There is mild dilatation of the proximal left common iliac artery at 2 cm. No evidence of aortic or iliac artery occlusion. No retroperitoneal hemorrhage apparent. No intestinal obstruction or free air. There is a mild amount of retained colonic feces. No evidence of appendicitis. There is colonic diverticulosis but no evidence of diverticulitis. There are degenerative changes in the lumbar spine and hips. IMPRESSION: 1. 4.6 x 4.2 cm fusiform infrarenal abdominal aortic aneurysm with minimal protrusion along the lower aspect of the aneurysm laterally on the left. No evidence of retroperitoneal hemorrhage. Mild dilatation of proximal common iliac artery on the left at 2 cm. 2. Colonic diverticulosis without diverticulitis. 3. Nonspecific hypodensities of the liver too small to categorize. Dictated by: Long Adames MD 06/20/2020 09:39 Long Adames MD in [facility] 06/20/2020 09:39
== END ==
PROVIDERS: PCP Emergency Medicine; Visit Provider Urology
DX: R31.0 Gross hematuria (principal)
CPT/HCPCS: 74177; Q9967

== ENCOUNTER 2020-06-20 08:38 | Day surgery (SDC) | payer MEDICAID, SELFPAY ==
[2020-06-18 10:58] VITALS: BMI 28.1
[2020-06-20 09:38] VITALS: BP 171/77; PULSE 44; RESP 16; TEMP 36.4; O2SAT 97
[2020-06-20 10:19] VITALS: BP 174/73; PULSE 44; RESP 20; TEMP 36.4; O2SAT 96
--- NOTE | 2020-06-20 11:14 | [facility].OPNOTE ---
Date of procedure: 06/20/20 Pre-op Diagnosis:: Gross hematuria Post-op Diagnosis:: History of gross hematuria Procedure performed:: Cystoscopy Surgeon:: Junior Hu MD Anesthesia: local Estimated blood loss (mL): 0 Clinical Note:: Patient is a 65-year-old white male with isolated history of gross hematuria associated with a change management consultant to Coumadin. Since going back to the [facility] he is not seen any further hematuria. CT scan yesterday shows no obvious renal abnormalities or bladder abnormalities. Operative findings:: Patient with prostate enlargement but no evidence of bladder outlet obstructive changes in his bladder. There is no evidence of any mucosal abnormalities or bladder tumors in the bladder Operative note:: Patient taken to the cystoscopy suite after informed consent was obtained. Structures prepped draped in standard surgical fashion and 2% lidocaine placed into the urethra clamped for 5 minutes. After 5 minutes the flexible cystoscope introduced into the urethral meatus. Passed to the prostatic urethra which showed some moderate hyperplasia. The bladder was entered and examined in a systematic fashion. There is no evidence of mucosal abnormalities, stones, trabeculation, diverticula or cellule formation. Ureteral orifices were well away from the left bladder neck. There is clear efflux of urine from the ureters. Scope was retroflexed showing and small median lobe. Scope then removed patient tolerated procedure well we discussed the findings today and he was reassured there is no evidence of any significant findings. The patient experienced continued gross hematuria we discussed the addition of finasteride. Condition: stable Disposition: same day Specimens:: None Complications:: None
== END 2020-06-20 10:10 | disposition home or self-care (01) ==
LOC: OUTP 08:40
PROVIDERS: PCP Emergency Medicine; Visit Provider Urology
PROC: (CPT 52000; principal; 2020-06-20 09:30)
DX: R31.0 Gross hematuria (principal); D68.32 Hemorrhagic disorder due to extrinsic circulating anticoagulants; Z79.01 Long term (current) use of anticoagulants; I48.91 Unspecified atrial fibrillation; I42.9 Cardiomyopathy, unspecified; I25.10 Atherosclerotic heart disease of native coronary artery without angina pectoris; K21.9 Gastro-esophageal reflux disease without esophagitis; E78.5 Hyperlipidemia, unspecified; I10 Essential (primary) hypertension; I49.9 Cardiac arrhythmia, unspecified; Z72.0 Tobacco use; Z80.9 Family history of malignant neoplasm, unspecified
CPT/HCPCS: 52000

== ENCOUNTER → 2020-09-12 10:07 | Outpatient (CLI) | payer OTHER, SELFPAY | PROVIDERS: Visit Provider Obstetrics & Gynecology Gynecology | DX: Z01.812 Encounter for preprocedural laboratory examination (principal); Z11.52 Encounter for screening for COVID-19 | CPT/HCPCS: U0003 ==

== ENCOUNTER 2021-05-11 10:31 | Inpatient (IN) | payer OTHER, SELFPAY ==
[2021-05-11] VITALS (8 sets, daily range): BP systolic 146–180; BP diastolic 65–91; PULSE 55–67; RESP 16–22; TEMP 36.8–37.3; O2SAT 93–96; BMI 28.7; BMI 27.6
--- NOTE | 2021-05-11 | ECG_ITS ---
APPROVED REPORT Exam: Resting ECG HR:67 bpm ECG Measurements Heart Rate 67 AXES GA 185 P 93 QRSd 127 QRS 69 QT 442 T 75 QTc 458 Conclusion SINUS RHYTHM WITH SINUS ARRHYTHMIA Old isolated Q wave in lead III ABNORMAL ECG UNCONFIRMED REPORT Electronically signed by : Judson Atkinson MD 05/12/2021 16:38:43
--- NOTE | 2021-05-11 10:49 | XR_ITS ---
FINAL REPORT CLINICAL HISTORY: Rt side rib/chest/ SOB and cough COMPARISON: April 17, 2020 FINDINGS: 2 views of the chest were obtained . The heart is mildly enlarged. The mediastinum is within normal limits. There is dense right lower lobe consolidation with a moderate right pleural effusion likely due to pneumonia or aspiration. There is no pneumothorax. Osseous structures are unremarkable. IMPRESSION: Dense right lower lobe consolidation with moderate right pleural effusion likely due to pneumonia or aspiration. Reviewed, Interpreted and Dictated by Deon Denney MD Transcribed by Jeny Cain Authenticated by Deon Denney MD on 05/11/2021 12:13:58 PM [facility]
--- NOTE | 2021-05-11 10:52 | PC.NURSE ---
ED MD at
[2021-05-11 10:59] LABS: Chloride 102 mmol/L (98-107); Potassium 4.3 mmoL/L (3.5-5.1); Sodium 136 mmol/L (136-145)
[2021-05-11 11:00] LABS: Basophils % 0.3 % (0.1-2.0); Eosinophils % 0.3 % (0.1-12.0); Hematocrit 43.7 % (42.0-52.0); Hemoglobin 14.2 g/dL (14.1-18.0); Lymphocytes # 0.8 K/mm3 (0.7-4.5); Lymphocytes % 6.8 % (10-50); Mean Corpuscular HGB Conc 32.6 g/dL (31.8-35.4); Mean Corpuscular Hemoglobin 34.5 pg (27.0-31.2); Mean Corpuscular Volume 105.8 fl (80-94); Mean Platelet Volume 8.8 fl (7.4-10.4); Monocytes # 0.9 K/mm3 (0.1-1.0); Monocytes % 8.3 % (1.7-9.3); Neutrophils # 9.5 K/mm3 (1.8-7.8); Neutrophils % 84.2 % (37.0-80.0); Platelet Count 349 K/mm3 (142-424); Red Blood Count 4.13 M/mm3 (4.60-6.20); Red Cell Distribution Width 13.8 % (11.5-17.5); White Blood Count 11.3 K/mm3 (4.8-10.8)
[2021-05-11 11:02] LABS: Alanine Aminotransferase 27 U/L (12-78); Albumin Level 3.4 g/dl (3.5-5.0); Alkaline Phosphatase 153 U/L (38-126); Anion Gap 9.3 mEq/L (5-15); Aspartate Amino Transferase 30 U/L (17-59); Bilirubin,Total 1.1 mg/dl (0.2-1.3); Blood Urea Nitrogen 15 mg/dl (9-20); Calcium 8.1 mg/dl (8.4-10.2); Carbon Dioxide 29 mmol/L (22.0-30.0); Creatinine Clearance Estimated 109 mL/min (50-200); Estimated Glomerular Filt Rate 97 ml/min (>60); GFR (African American) 117 ML/MIN (>60); Globulin 3.3 g/dL (1.3-3.2); Glucose 109 mg/dl (74-100); Total Protein,Serum 6.7 g/dl (6.3-8.2)
--- NOTE | 2021-05-11 11:12 | PC.NURSE ---
patient to xray with crime lab technician
[2021-05-11 11:14] LABS: Troponin I 0.04 ng/ml (0.00-0.034)
--- NOTE | 2021-05-11 11:51 | PC.NURSE ---
ED MD at for update on POC
--- NOTE | 2021-05-11 12:24 | PC.NURSE ---
Dr. Darek naqvi for ED MD
--- NOTE | 2021-05-11 12:27 | PC.NURSE ---
JASSI ESTRADA on phone with Dr. Oswald
--- NOTE | 2021-05-11 12:27 | HMH.EDGENADL ---
ED Disposition <Beny Oswald - Last Filed: 05/11/21 12:27> Condition on Discharge: Good - Critical Care Critical Care Time: No <Lauro Nguyen - Last Filed: 05/11/21 13:18> Clinical Impression: Right lower lobe pneumonia Qualifiers: Pneumonia type: due to unspecified organism Qualified Code(s): J18.9 - Pneumonia, unspecified organism Disposition: Admitted As Inpatient Attestation: On 05/11/21, the high probability of a clinically significant, sudden or life threatening deterioration of the following system(s) required my full and direct attention, intervention and personal management. The time I documented below is in addition to time spent performing reported procedures but includes the following listed in this critical care notation. Medical Decision Making - Lab Data Result diagrams: 05/11/21 10:38 05/11/21 10:38 <Beny Oswald - Last Filed: 05/11/21 12:27> - Medical Records Medical records reviewed: Yes: I reviewed the patient's medical records. - Law Inquiry Pt receiving controlled substance: No - Lab Data Result diagrams: 05/11/21 10:38 05/11/21 10:38 <Lauro Nguyen - Last Filed: 05/11/21 13:18> Vital Signs: 05/11/21 10:31 05/11/21 11:47 Temperature 98.4 F Temperature Source Oral Pulse Rate 55 L Pulse Rate [Right Radial] 67 Respiratory Rate 16 Blood Pressure 164/72 H Blood Pressure [Right Arm] 180/69 H Blood Pressure Mean [Right Arm] 106 Blood Pressure Source [Right Arm] Automatic Cuff Blood Pressure Position [Right Arm] Sitting 02 Sat by Pulse Oximetry 94 L 93 L Oxygen Delivery Method Room Air Room Air - Lab Data Lab Results 05/11/21 10:38: WBC 11.3 H, RBC 4.13 L, Hgb 14.2, Hct 43.7, MCV 105.8 H, MCH 34.5 H, MCHC 32.6, RDW 13.8, Plt Count 349, MPV 8.8, Neut % (Auto) 84.2 H, Lymph % (Auto) 6.8 L, [place] % (Auto) 8.3, Eos % (Auto) 0.3, Baso % (Auto) 0.3, Neut # (Auto) 9.5 H, Lymph # (Auto) 0.8, [place] # (Auto) 0.9, Eos # (Auto) 0.0, Baso # (Auto) 0.0 05/11/21 10:38: Sodium 136, Potassium 4.3, Chloride 102, Carbon Dioxide 29, Anion Gap 9.3, BUN 15, Creatinine 0.80, Estimated Creat Clear 109, Estimated GFR 97, Est GFR ( Amer) 117, Glucose 109 H, Calcium 8.1 L, Total Bilirubin 1.1, AST 30, ALT 27, Alkaline Phosphatase 153 H, Troponin I 0.04 H, Total Protein 6.7, Albumin 3.4 L, Globulin 3.3 H, Albumin/Globulin Ratio 1.0 L Orders (Tests/Meds): ED MEDICATIONS Generic Name Dose Route Start Last Admin Trade Name Freq PRN Reason Stop Dose Admin Ceftriaxone Sodium 2 gm/ 50 mls @ 100 mls/hr 05/11/21 12:30 05/11/21 12:48 Sodium Chloride IV 05/25/21 12:29 100 mls/hr Q24H TINO Administration Sodium Chloride 10 ml 05/11/21 10:49 Sodium Chloride 0.9% 10ml Flush Syringe IV 06/10/21 10:48 NEEDED PRN Maintain IV Site Sodium Chloride 3 ml 05/11/21 12:29 Sodium Chloride 3% 15ml Neb IH 06/10/21 12:28 ONCE PRN INDUCE SPUTUM COLLECTION ORDERS Category Date Time Status Rapid PCR Covid and Flu A/B Stat Lab 05/11/21 12:45 Received Troponin I Q3H Lab 05/11/21 14:00 Ordered Troponin I Q3H Lab 05/11/21 17:00 Ordered Sputum Culture & Gram Stain Stat Micro 05/11/21 12:29 Ordered Medical Decision Narrative: Patient is a 65-year-old male presents the ED today for further evaluation of right-sided chest pain with shortness of breath, states he has been coughing up a lot of sputum recently, chief differential at this point of my evaluation and examination with rales and asymmetric lung sounds is a right lower lobe pneumonia or pleural effusion, given patient's chills and febrile symptoms this is likely related to pneumonia. We will obtain a chest x-ray CBC, a EKG, troponin for further evaluation of laboratory abnormalities, patient's vital signs show mild tachycardia but otherwise no hypotension and no hypoxia. Chest x-ray shows on independent for evaluation evidence of a right lower lobe pneumonia, this takes up the majority o
--- NOTE | 2021-05-11 12:41 | PC.NURSE ---
Spoke with Karuna in Care management about patient admission
--- NOTE | 2021-05-11 12:56 | PC.NURSE ---
Dr. Rain at BS
[2021-05-11 12:58] LABS: Coronavirus 19, PCR Not Detected (NotDetected); Influenza A, PCR Not Detected (NotDetected); Influenza B, PCR Not Detected (NotDetected)
--- NOTE | 2021-05-11 13:08 | CT_ITS ---
PROCEDURE INFORMATION: Exam: CT Chest Without Contrast; Diagnostic Exam date and time: 05/11/2021 1:27 PM Age: 65 years old Clinical indication: Cough and shortness of breath; Additional info: Pneumonia, concern for empyema TECHNIQUE: Imaging protocol: Diagnostic computed tomography of the chest without contrast. Radiation optimization: All CT scans at this facility use at least one of these dose optimization techniques: automated exposure control; mA and/or kV adjustment per patient size (includes targeted exams where dose is matched to clinical indication); or iterative reconstruction. COMPARISON: CR XR CHEST 2V 05/11/2021 11:02 AM FINDINGS: Lungs: Patchy ground-glass regions of opacification are demonstrated in the periphery of the left upper lobe. Although findings can be seen in as the feature of COVID-19 pneumonia , the findings are nonspecific. Other processes such as influenza pneumonia and organizing pneumonia, as can be seen with drug toxicity and connective tissue disease, can cause a similar imaging pattern. (Reference: Winston). There is a somewhat lobulated irregular 7.5 mm pulmonary nodule located posteriorly in the left lower lobe (series 4, image number 64). There is a densely calcified granuloma located within a region of lung consolidation versus atelectasis in the right lower lobe. A smaller granuloma is demonstrated posteriorly and superiorly in the right lower lobe. Pleural spaces: There is a lobulated fluid collection throughout the majority of the right lower lobe. Associated regions of consolidation versus atelectasis are demonstrated. A 2nd lobulated region of pleural thickening is located in the right lung apex which connects with findings involving the right lower lobe. Heart: Generalized cardiomegaly most pronounced involving the left atrium and left ventricle. Postoperative mediastinal changes. Aorta: Atherosclerotic vascular calcification involving the aortic arch and coronary arteries. Lymph nodes: Nonspecific lymph nodes in the AP window. Lymph nodes measuring up to 1.5 cm in the pretracheal space. Spleen: The spleen is mildly enlarged. Bones/joints: Unremarkable. No acute fracture. Soft tissues: See Lungs finding. IMPRESSION: 1. Large lobulated fluid collection involving the majority of the right lower lobe. Associated regions of consolidation versus atelectasis involving the right lower lobe. Findings suggestive of empyema. 2. Smaller lobulated region of pleural thickening right lung apex. Findings may reflect an infectious process. Malignancy could not be excluded. 3. 7.5 mm noncalcified irregular pulmonary nodule left lower lobe.For patients at low risk (minimal or absent history of smoking and of other known risk factors), recommend CT Chest at 6-12 months, then consider CT Chest at 18-24 months. For patients at high risk (history of smoking or of other known risk factors), recommend CT Chest at 6-12 months, then CT Chest at 18-24 months. (Reference: Ozzie) 4. Patchy ground-glass regions of opacification in the left upper lobe. Findings are nonspecific. Clinically correlate regarding history of COVID-19 pneumonia. 5. Pretracheal adenopathy measuring up to 1.5 cm. 6. Recommendations: Consider follow-up post-contrast enhanced imaging for further evaluation. REFERENCES: 1. Winston S, et al., Radiological Society of [place] Expert Consensus Statement on Reporting Chest CT Findings Related to COVID-19. Endorsed by the Society of Thoracic Radiology, the [place] [employer], and RSNA. Published May 16, 2019. 2. Ozzie Tamayo et al. Guidelines for Management of Incidental
--- NOTE | 2021-05-11 13:25 | PC.NURSE ---
Patient to CT with rn new grad by wheelchair
--- NOTE | 2021-05-11 13:27 | PC.NURSE ---
GOING TO CT
--- NOTE | 2021-05-11 13:33 | PC.NURSE ---
PT BACK FROM CT
--- NOTE | 2021-05-11 13:35 | PC.NURSE ---
Patient back from radiology with communication electronic technician
[2021-05-11 13:42] LABS: Procalcitonin 0.107 ng/mL (0.0-2.0)
--- NOTE | 2021-05-11 13:46 | PC.NURSE ---
Attempted to call report on pt, but no answer. Will attempt again in 10 minutes.
--- NOTE | 2021-05-11 13:50 | HMH.CNCARD ---
History of Present Illness Consult date: 05/11/21 Requesting physician: Beny Oswald Consult reason: chest pain, shortness of breath Chief complaint: Pneumonia, elevated troponin Additional Medical History:: 1. Hypertension 2. Hyperlipidemia 3. History of alcohol use 4. Tobacco use for over 40 yrs, ongoing 5. Coronary artery disease A. CABG using both MELISSA, approximately 2003, [place] B. LHC, 10/2018 and NSTEMI 04/2019 1. Severe distal left main coronary artery stenosis extending into the circumflex 2. Patent stent in the mid left main coronary artery 3. 100% occlusion of the ostial left anterior descending and right coronary artery 4. Patent left internal mammary artery to left anterior descending 5. Patent stent in the right subclavian artery 6. Patent right internal mammary artery to distal right coronary artery 7. Preserved normal left ventricular systolic function 8. Normal left ventricular end-diastolic pressure 9. Successful angioplasty and stenting of the distal left main coronary artery with a resolute Lincoln drug-eluting stent resulting in 0% residual stenosis 10. Successful angioplasty and stenting of the proximal first obtuse marginal branch of the circumflex resulting in 0% residual stenosis 11. Successful synchronized electrical cardioversion of atrial flutter to normal sinus rhythm with 100 J synchronized electrical cardioversion 12. Successful placement of an Angio-Seal device in the right common femoral artery PLAN 1. Patient will continue with aggressive medical therapy. He now has full revascularization. He is also back to normal sinus rhythm. Plavix will be continued at 75 mg daily. He will also remain on anticoagulation for his underlying atrial fibrillation/flutter. Follow-up in cardiology clinic 1 to 2 weeks after discharge Electronically signed by : Sean Delgado, 05/21/2019 15:34:04 6. GERD 7. A. fib A. No anticoagulation due to history of watchman device placement B. A. flutter with RVR, 04/2019, Amiodarone IV loading with cardioversion during cardiac cath 8. Ischemic Cardiomyopathy A. Echo, 09/2018, LVEF 30-40% with global hypokinesis. A. fib noted. B. ELDON, 11/2018, 1. Moderately enlarged left atrium, left atrial appendage free of thrombus, there is adequate appendage flow by spectral Doppler. 2. Mildly dilated left ventricle with severely reduced left ventricular systolic function, visually estimated ejection fraction 30%, left ventricle is globally hypokinetic. 3. Mild mitral and tricuspid regurgitation 4. Patent foramen ovale with [id number] shunt. 5. Normal vital atheromatous plaque seen in the descending thoracic aorta. 6. No significant pericardial effusion noted C. MUGA, LVEF 57% D. Echo, 04/2019, 1. Technically difficult study because of the patient fact in poor acoustic windows 2. Mildly enlarged left atrium, normal left ventricular size, moderate concentric left ventricular hypertrophy, visually estimated ejection fraction of 40 to 45% with segmental wall motion abnormality described above. Diastolic parameters are inconclusive. 3. Mildly enlarged right ventricle with normal contractility. 4. Thickened and calcified aortic valve without Doppler evidence of aortic stenosis aortic insufficiency. 5. Mild mitral and tricuspid regurgitation. 6. No significant pericardial effusion noted. Electronically signed by : Iraj Streeter, 05/21/2019 17:15:56 9. AAA, 4.5 cm, 01/2021, followed by 10. HOLLI, <20% bilaterally , 2014 and 2016 History of present illness: Patient is a 65-year-old male who presents the ED today for further evaluation of right sided chest pain. Patient states that he has been having this pain for approximately 1 week now, states that it is been associated with shortness of breath, stating that he has had activity change at home with difficulty ambulating secondary to the shortness of breath,
--- NOTE | 2021-05-11 13:55 | HMH.PULMCON ---
*Admission Date: 05/11/21 *Reason for consult:: SOB *History of present illness: Mr. Pyle is a 65-year-old male current smoker greater than [id number] smoking history used to smoke 1-1 and half pack a day, no respiratory complaints not of any inhalers at baseline presented to the ER complaining of worsening cough and productive phlegm for the last 11-12 days or so with right-sided chest pain and subjective fevers. [facility] History Medical History: Reports:: Arrhythmia, Atrial Fibrillation, Cardiomyopathy, Coronary Artery Disease, Gastroesophageal Reflux Disease(GERD), Hyperlipidemia, Hypertension Denies:: Cancer, Diabetes Mellitus Type 1, Diabetes Mellitus Type 2, Internal Pacemaker, MRSA, Seizures *Have you ever received a pneumonia vaccine?: No *Have you received a flu vaccine this season?: No Other Surgeries: Yes: No Previous Surgery, Angiogram, CABG (15 years ago), Cardiac Catheterization, Colonoscopy, Coronary Stent, Other. No: Pacemaker Amputation: No Fractures: No - *Social History Smoking Status: Current every day smoker Tobacco Type: cigarettes # Packs/Day (cigarettes): 1 Alcohol Intake: never Alcohol Intake Frequency:: a few times a week Substance Use Type: denies use *Occupational Status:: unemployed Housing: house Household Members: spouse *Travel in the last 8 weeks: None Family Hx:: Heart Attack, Cancer ROS - Cons Reports body ache(s), Reports chills - Eyes Reports blurry vision - ENT Denies nasal congestion, Denies nasal discharge - Card Reports chest pain, Reports shortness of breath - Resp Respiratory: Reports chest congestion, Reports cough, Reports excessive phlegm production, Reports pain with cough, Reports cough with sputum production, Denies wheezing - GI Gastrointestingal: Denies: abdominal pain - [place] Musculoskeletal: Denies muscle weakness - Psych Denies thoughts of hurting/killing others, Denies thoughts of hurting/killing yourself Meds Home Medications Medication Instructions Recorded Confirmed Type aspirin 81 mg tablet,delayed 81 mg PO DAILY 30 Days #30 tab 05/22/19 02/05/21 Rx release amiodarone 200 mg tablet See Rx Instructions .ROUTE 07/07/20 02/05/21 Rx .COMPLEX #90 tablet pantoprazole 40 mg tablet,delayed See Rx Instructions .ROUTE 07/07/20 02/05/21 Rx release .COMPLEX #90 tablet clopidogrel 75 mg tablet See Rx Instructions .ROUTE 08/08/20 02/05/21 Rx .COMPLEX #90 tablet isosorbide mononitrate 30 mg See Rx Instructions .ROUTE 01/07/21 02/05/21 Rx tablet,extended release 24 hr .COMPLEX #90 tab atorvastatin 40 mg tablet 80 mg PO DAILY #180 tab 02/05/21 02/05/21 Rx bisoprolol fumarate 5 mg tablet 5 mg PO DAILY #90 tab 02/05/21 02/05/21 Rx lisinopril 40 mg tablet 40 mg PO DAILY #90 tab 02/05/21 02/05/21 Rx Allergies Allergy/AdvReac Type Severity Reaction Status Date / Time No Known Allergies Allergy Verified 02/05/21 11:49 Exam - Constitutional Constitutional:: Present: no acute distress, comfortable - HENMT Exam HENMT: Present: normocephalic - Eye Exam Eyes:: Present: normal appearance both eyes and related structures - Neck Exam Neck:: Present: normal visual inspection - Respiratory Exam Respiratory:: Present: able to speak in complete sentences, no respiratory distress, decreased breath sounds Comments: Right lower long field decreased breath sounds - Cardiovascular Exam Cardiac:: Present: S1, S2 - GI Exam GI:: Present: soft - Skin Exam Skin: Present: warm, no rash - Neurological Exam Neurological: Present: alert, awake, normal cognition - Extremities Exam Extremities: Present: no cyanosis, no clubbing, no edema Internal Medicine - CN: Reslt - Labs CBC & Chem 7: 05/11/21 10:38 05/11/21 10:38 Labs: Short CBC 05/11/21 Range/Units 10:38 WBC 11.3 H (4.8-10.8) K/mm3 Hgb 14.2 (14.1-18.0) g/dL Hct 43.7 (42.0-52.0) % Plt Count 349 (142-424) K/mm3 BMP 05/11/21 10:38 Sodium 13
--- NOTE | 2021-05-11 14:00 | PC.NURSE ---
Tech from 2nd floor down to get patient
--- NOTE | 2021-05-11 14:04 | HMH.PHAVTE ---
[facility] Pharmacy VTE Monitoring - Patient Demographics Admission date: 05/11/21 Report Date: 05/11/21 Time: 14:04 Allergies/Adverse Reactions: Patient Allergies No Known Allergies Allergy (Verified 02/05/21 11:49) Height: 1.91 m Weight: 104.326 kg Patient Problems: Current Active Problems (Last Updated 11/29/18 @ 15:23 by Lin Harris RN) Right lower lobe pneumonia (Acute) - VTE Risk Labs: VTE Related Lab Results Hgb 14.2 g/dL (14.1-18.0) 05/11/21 10:38 Hct 43.7 % (42.0-52.0) 05/11/21 10:38 Plt Count 349 K/mm3 (142-424) 05/11/21 10:38 BUN 15 mg/dl (9-20) 05/11/21 10:38 Creatinine 0.80 mg/dl (0.66-1.25) 05/11/21 10:38 Estimated Creat Clear 109 mL/min (50-200) 05/11/21 10:38 - Prophylaxis VTE Prophylaxis Ordered?: Yes Types of VTE Prophylaxis: TEDS Knee High Location of Applied Device: Bilateral Lower Extremeties
--- NOTE | 2021-05-11 14:23 | US_ITS ---
FINAL REPORT CLINICAL HISTORY: Right pleural effusion; 150 cc para fluid drained for diagnositc FINDINGS: Ultrasound guidance was provider for clinical service in performance of a thoracentesis. 150 mL of fluid was obtained for laboratory studies. IMPRESSION: Ultrasound guidance for thoracentesis as above. Reviewed, Interpreted and Dictated by Rajesh Mary III, MD Transcribed by EMELY Ferreira Authenticated by Rajesh Mary III, MD on 05/18/2021 06:51:30 AM [facility]
--- NOTE | 2021-05-11 14:40 | CA_ITS ---
APPROVED REPORT EXAM: Comprehensive 2D, Doppler, and color-flow Echocardiogram Release And Technical Records Clerk: Anna Bermudez RT(R) Ht: 6 ft 3 in Wt: 222lbs BSA: 2.29 BP: 164/72 mmHg Indications: elevated troponin, HTN, smoker, HTN, SOB, hyperlipidemia, CM, pneumonia, AFIB, GERD, hx CABG, thoracentesis today. 2D Dimensions LVOT 2.13 cm (M/F) 1.5-2.5 LA Volume 75.70 mL LA Volume Index 33.05 mL/m2 (M/F) 16-34 M-Mode Dimensions RVDd 2.64 cm (0.9-2.6) LA Diam 5.09 cm (1.9-4.0) LVDd 5.67 cm (3.5-5.7) Ao Diam 2.44 cm (2.0-3.7) LVDs 4.57 cm (3.5-5.7) IVSd 1.25 cm (0.6-1.1) PWd 0.82 cm (0.6-1.1) EF (Teich) 39.30% FS 19.40% EDV (Teich) 158.10 mL ESV (Teich) 95.90 mL LV Diastology E Decel Time 237.00 (160-240 msec) E/A Ratio 1.4 MED E' 6.80 (< 7 cm/sec) E'/MED E' Ratio 14.28 (>14) LAT E' 9.90 (<10 cm/sec) E/LAT E' Ratio 9.81 (>14) Mitral Valve MV E Max Clifford. 97.00 (40-130 cm/s) MV A Velocity 67.00 (40-130 cm/s) E/A Ratio 1.44 MV Decel. Time 237.00 (160-240 ms) MV PHT 69.00 ms Left Ventricle Left atrium is mildly enlarged, left ventricle is normal size, mild concentric left ventricular hypertrophy, visually estimated ejection 50% with no regional wall motion abnormality, endocardial subsequently visualized, grade 2 diastolic dysfunction seen without tissue Doppler evidence of raise left atrial pressure. Right Ventricle Right atrium right ventricle mildly enlarged with normal contractility. Aortic Valve Aortic valve is minimally thickened and calcified without aortic stenosis aortic insufficiency Mitral Valve Mitral valve leaflets are minimally thickened, there is mild mitral regurgitation. Tricuspid Valve Tricuspid grossly normal, there is mild tricuspid regurgitation, tricuspid regurgitation jet velocity is inadequate for calculation of the right ventricular systolic pressure. Pulmonic Valve Pulmonic valve is poorly visualized. Great Vessels Aortic root is normal size. Inferior vena cava is poorly visualized. Pericardium No significant pericardial effusion noted. Conclusion 1. Mild biatrial enlargement, normal left ventricular size, mild concentric left ventricular hypertrophy, visually estimated ejection fraction 50% with no regional wall motion abnormality, grade 2 diastolic dysfunction seen without tissue Doppler evidence of raise left atrial pressure. 2. Mildly enlarged right ventricle with normal contractility. 3. Mild mitral and tricuspid regurgitation. 4. No significant pericardial effusion. 5. Inferior vena cava is poorly visualized. Electronically signed by : Iraj Streeter MD 05/11/2021 21:00:23
--- NOTE | 2021-05-11 14:48 | HMH.PHAINT ---
home medication list verified using list from outpatient pharmacy and cardiology office
[2021-05-11 14:58] LABS: Adenovirus,PCR Not Detected (NotDetected); Bordetella Pertussis Not Detected (NotDetected); Chlamydophila Pneumoniae, PCR Not Detected (NotDetected); Coronavirus 229E Not Detected (NotDetected); Coronavirus NL63 Not Detected (NotDetected); Coronavirus OC43 Not Detected (NotDetected); Coronovirus HKU1,PCR Not Detected (NotDetected); Human Metapneumovirus Not Detected (NotDetected); Influenza A, PCR Not Detected (NotDetected); Influenza AH1, 2009 Not Detected (NotDetected); Influenza AH1, PCR Not Detected (NotDetected); Influenza AH3,PCR Not Detected (NotDetected); Influenza B, PCR Not Detected (NotDetected); Mycoplasma Pneumoniae, PCR Not Detected (NotDetected); Parainfluenza 1, PCR Not Detected (NotDetected); Parainfluenza 2, PCR Not Detected (NotDetected); Parainfluenza 3, PCR Not Detected (NotDetected); Parainfluenza 4, PCR Not Detected (NotDetected); Respiratory Syncytial Virus Not Detected (NotDetected); Rhinovirus/Enterovirus Not Detected (NotDetected)
--- NOTE | 2021-05-11 15:54 | HMH.PROC ---
[facility] Procedure Note Procedure Note:: Procedure: Right Thoracentesis Indication for procedure: Parapneumonic Effusion A time out was performed, and the chest x-ray was reviewed, the appropriate side was confirmed and marked. My hands were washed immediately prior to the procedure. I wore a surgical cap, mask with protective eyewear, sterile gown, and sterile gloves throughout the procedure. The patient was prepped and draped in a sterile manner using chlorhexidine scrub after the appropriate level was percussed and confirmed by ultrasound. 1% lidocaine was used to anesthetize the skin, subcutaneous tissue, superior aspect of the rib periosteum and parietal pleura. A finder needle was then introduced at the seventh intercoastal space posteriorly to locate the pleural fluid; straw colored fluid was aspirated. A 10-blade scalpel was used to mishel the skin at the insertion site. The [place] needle was then introduced through the skin incision into the pleural space using negative aspiration pressure and the red colorimetric indicator to confirm appropriate positioning of the needle. The thoracentesis catheter was then threaded without difficulty. 150 ml of straw-colored fluid was removed without difficulty. The fluid will be sent for routine pleural studies, cultures along with cytopathology. On ultrasound examination patient noted with significant loculations. Will recommend surgical chest tube placement by surgery for complicated effusion. I have left the pigtail in place to facilitate administration of TPA dornase Patient tolerated the procedure well Estimated blood loss is 2cc. Recommendations: Consult surgery for chest tube placement
--- NOTE | 2021-05-11 16:15 | PC.NURSE ---
patient has done well. inocencio attempted thoracentesis and left a pigtail in for medication administration. ordered chest tube to be placed by general surgery to drain the area. patient has had no complaints. vitals stable
--- NOTE | 2021-05-11 16:59 | XR_ITS ---
PROCEDURE INFORMATION: Exam: XR Chest Exam date and time: 05/11/2021 5:18 PM Age: 65 years old Clinical indication: Shortness of breath; Additional info: Chest tube placement TECHNIQUE: Imaging protocol: XR of the chest. Views: 1 view. COMPARISON: X-ray chest dated 05/11/2021 at 11:02 p.m. FINDINGS: Tubes, catheters and devices: A chest tube is now demonstrated in the right lower lobe. Findings are new compared with the previous chest x-ray as well as the CT scan performed earlier on this date. Lungs: There is been no change in the previously demonstrated region of consolidation and pleural effusion involving the right lower lobe. Pleural spaces: There is no evidence of a pneumothorax. Heart/Mediastinum: Unremarkable. No cardiomegaly. Bones/joints: Unremarkable. IMPRESSION: Status post chest tube placement. No evidence of pneumothorax.
--- NOTE | 2021-05-11 17:02 | HMH.GSCON ---
*Admission Date: 05/11/21 *Reason for consult:: Chest tube placement *History of present illness: Patient is a very pleasant 65-year-old male who is a smoker who had presented to the emergency department with about 11 or 12 days of right-sided chest pain. He describes it as similar to a bruised rib . He had had some increasing cough and productive phlegm and presented to the emergency department today where he was seen and evaluated. Chest x-ray revealed dense right lower lobe consolidation with moderate right effusion. He was admitted for inpatient management. He did undergo CT scan which revealed an appreciable effusion. Pulmonology was consulted. He had diagnostic thoracentesis performed with aspiration of approximately 150 mL of thin straw-colored fluid. Pigtail catheter was left in position. Plan was for surgery consultation for chest tube placement with planned therapy using TPA. Review of Systems - Review of Systems Review of systems:: pertinent systems reviewed and negative unless documented below - *Respiratory Reports cough, Reports shortness of breath, Reports excessive phlegm production [facility] History I have reviewed the patient's past medical history: Yes Medical History: Reports:: Arrhythmia, Atrial Fibrillation, Cardiomyopathy, Coronary Artery Disease, Gastroesophageal Reflux Disease(GERD), Hyperlipidemia, Hypertension Denies:: Cancer, Diabetes Mellitus Type 1, Diabetes Mellitus Type 2, Internal Pacemaker, MRSA, Seizures *Have you ever received a pneumonia vaccine?: No *Have you received a flu vaccine this season?: No Other Surgeries: Yes: No Previous Surgery, Angiogram, CABG (15 years ago), Cardiac Catheterization, Colonoscopy, Coronary Stent, Other. No: Pacemaker Amputation: No Fractures: No - *Social History Last grade of school completed: Some college Smoking Status: Current every day smoker Tobacco Type: cigarettes # Packs/Day (cigarettes): 1 Alcohol Intake: current Alcohol Intake Frequency:: 0-2 drinks per day Substance Use Type: denies use *Occupational Status:: employed Housing: house Household Members: spouse *Travel in the last 8 weeks: Inside the [place] Family Hx:: Heart Attack Meds Home Medications Medication Instructions Recorded Confirmed Type Amiodarone HCl 200 mg PO DAILY 05/11/21 05/11/21 History Aspirin [Low Dose Aspirin EC] 81 mg PO DAILY 05/11/21 05/11/21 History Atorvastatin Calcium [Lipitor 40mg 80 mg PO DAILY 05/11/21 05/11/21 History Tab] Clopidogrel Bisulfate [Plavix] 75 mg PO DAILY 05/11/21 05/11/21 History Isosorbide Mononitrate [Isosorbide 30 mg PO DAILY 05/11/21 05/11/21 History Mononitrate ER] Pantoprazole Sodium 40 mg PO DAILY 05/11/21 05/11/21 History bisoproloL fumarate [Bisoprolol 5 mg PO DAILY 05/11/21 05/11/21 History Fumarate] lisinopriL [Lisinopril] 40 mg PO DAILY 05/11/21 05/11/21 History Allergies Allergy/AdvReac Type Severity Reaction Status Date / Time No Known Allergies Allergy Verified 02/05/21 11:49 Exam Vital signs and Labs for Last 24 Hours: Temp Pulse Resp BP Pulse Ox 99.2 F 57 L 16 152/78 H 95 05/11/21 14:12 05/11/21 14:12 05/11/21 14:12 05/11/21 14:12 05/11/21 14:12 Laboratory Results - last 24 hr 05/11/21 10:38: WBC 11.3 H, RBC 4.13 L, Hgb 14.2, Hct 43.7, MCV 105.8 H, MCH 34.5 H, MCHC 32.6, RDW 13.8, Plt Count 349, MPV 8.8, Neut % (Auto) 84.2 H, Lymph % (Auto) 6.8 L, [place] % (Auto) 8.3, Eos % (Auto) 0.3, Baso % (Auto) 0.3, Neut # (Auto) 9.5 H, Lymph # (Auto) 0.8, [place] # (Auto) 0.9, Eos # (Auto) 0.0, Baso # (Auto) 0.0 05/11/21 10:38: Sodium 136, Potassium 4.3, Chloride 102, Carbon Dioxide 29, Anion Gap 9.3, BUN 15, Creatinine 0.80, Estimated Creat Clear 109, Estimated GFR 97, Est GFR ( Amer) 117, Glucose 109 H, Calcium 8.1 L, Total Bilirubin 1.1, AST 30, ALT 27, Alkaline Phosphatase 153 H, Troponin I 0.04 H, Total Protein 6.7, Albumin 3.4 L, Globulin 3.3 H, Albumin/Globulin Ratio 1.0 L 05/11/21 10:38: P
--- NOTE | 2021-05-11 17:06 | P.OP_ITS ---
Date of procedure: 05/11/21 Pre-op Diagnosis:: Complex right parapneumonic effusion Post-op Diagnosis:: Same Procedure performed:: Placement of right 24 [place] thoracostomy tube Surgeon:: Rajesh Morris MD Anesthesia: local Estimated blood loss (mL): 5 Clinical Note:: Patient is a very pleasant 65-year-old male who is a smoker who had presented to the emergency department with about 11 or 12 days of right-sided chest pain. He describes it as similar to a bruised rib . He had had some increasing cough and productive phlegm and presented to the emergency department today where he was seen and evaluated. Chest x-ray revealed dense right lower lobe consolidation with moderate right effusion. He was admitted for inpatient management. He did undergo CT scan which revealed an appreciable effusion. Pulmonology was consulted. He had diagnostic thoracentesis performed with aspiration of approximately 150 mL of thin straw-colored fluid. Pigtail catheter was left in position. Plan was for surgery consultation for chest tube placement with planned therapy using TPA. Operative findings:: Complex effusion Operative note:: Consent was obtained. Patient was maintained in supine position with right side somewhat elevated. Right chest was prepped and draped in the standard surgical fashion. Landmarks were identified. Local anesthetic was infiltrated for planned posterior axillary chest tube placement. 20 cc of 1% Xylocaine was infiltrated superficially and then deeply to the periosteum and intercostal muscles. Approximately 2 cm incision was made. Blunt dissection was carried down through subcutaneous tissues and intercostal muscles over the superior rib. Pleural space was entered. There was some return of some straw-colored thin fluid. 24 [place] chest tube was inserted. It was secured with a 0 Nurolon horizontal mattress suture. Additional simple 0 Surgilon suture was placed prior to dissection for ultimate chest tube site closure. Antibiotic dressing followed by clean dry sterile dressing was applied. Patient tolerated procedure well with no immediate complications. Chest x-ray appears to show appropriate placement. Condition: stable Disposition: no change Complications:: None immediately apparent
--- NOTE | 2021-05-11 18:25 | XR_ITS ---
PROCEDURE INFORMATION: Exam: XR Chest Exam date and time: 05/11/2021 6:59 PM Age: 65 years old Clinical indication: Pain and device placement; Other: Entire chest hurts. ; Patient HX: Chest tube placed, patient states he has pneumonia currently. Chest is hurting. ; Additional info: Chest pain TECHNIQUE: Imaging protocol: XR of the chest. Views: 1 view. COMPARISON: CR XR CHEST PORTABLE 05/11/2021 5:18 PM FINDINGS: Tubes, catheters and devices: The previously demonstrated chest tube has been pulled back slightly. It now overlies the posterior right 7th rib. Lungs: The appearance of the lung parenchyma is otherwise not significantly changed accounting for differences in patient positioning. Pleural spaces: No pneumothorax. Heart/Mediastinum: Unchanged. Bones/joints: Unremarkable. IMPRESSION: Chest tube tip now superimposed upon the posterior right 7th rib.
--- NOTE | 2021-05-11 18:48 | PC.NURSE ---
Pt called out and in severe pain on Rside of chest, paged Dr. Rain and he ordered another stat cxr, stated chest tube could be unclamped at 1900, and ordered a x 1 dose of 2 mg morphine. Morphine 2 mg given at 182. Pt states it the pain has calmed down some and is more tolerable. CB in reach. Mx continues.
[2021-05-11 19:21] LABS: Appearance,Body Fld. Cloudy; Source, Body Fld. Thoracentesis Fluid; Volume,Body Fld. 104 mL
[2021-05-11 19:36] LABS: TNC,Body Fluid 1052 cells/uL (< 1000)
[2021-05-11 19:37] LABS: RBC,Body Fluid < 10 cells/uL (< 10 X 10^3)
--- NOTE | 2021-05-11 19:44 | PC.NURSE ---
If giving TPA through pig tail see communication note about how to do it.
[2021-05-11 21:16] LABS: Mononuclear WBCs,Body Fluid 30 %; Polynuclear WBC,Body Fluid 70 %
--- NOTE | 2021-05-11 23:47 | PC.NURSE ---
Patient has refused all nighttime medications at 2100. This RN was also notified by the SRNA that he has refused vital signs. Patient continues to be in pain and states that the morphine helps some . Patient continues to have SS drainage from the chest tube. Patient is also refusing labs to be drawn. Will continue to monitor.
--- NOTE | 2021-05-11 23:50 | PC.NURSE ---
Late ENTRY: Dr. Rain made aware of chest x-ray report at 1931, no new orders received. Dr. Morris made aware of chest x-ray report at 1947, no new orders received.
[2021-05-12 00:08] VITALS: BP 143/80; PULSE 65; RESP 19; TEMP 36.8; O2SAT 96
[2021-05-12 04:00] VITALS: BP 149/66; PULSE 93; RESP 18; TEMP 36.6; O2SAT 95
[2021-05-12 05:33] VITALS: BMI 26.8
--- NOTE | 2021-05-12 05:39 | PC.NURSE ---
Addendum entered by Tabby Ibarra RN 05/12/21 06:53: At this time patient has had 260ml of SS fluid drained from chest tube. Original Note: Patient has been restless this RN's shift. Patient states that his pain has gotten better . Patient's chest tube dsg remains C/D/I. Patient has had a productive cough with thick phlem noted in cup. Specimen cup has been placed at bedside and patient was instructed to spit contents into that. Patient has had 480ml of SS fluid drained from his chest tube, prior to his TPA/Dornase injection. Patient has tolerated this injection well. Will continue to monitor.
[2021-05-12 06:57] LABS: Basophils # 0.1 K/mm3 (0-0.2); Basophils % 0.4 % (0.1-2.0); Eosinophils % 0.3 % (0.1-12.0); Hematocrit 43.1 % (42.0-52.0); Hemoglobin 14.5 g/dL (14.1-18.0); Lymphocytes % 8.7 % (10-50); Mean Corpuscular HGB Conc 33.6 g/dL (31.8-35.4); Mean Corpuscular Hemoglobin 35.3 pg (27.0-31.2); Mean Corpuscular Volume 105.1 fl (80-94); Mean Platelet Volume 9.3 fl (7.4-10.4); Monocytes # 0.9 K/mm3 (0.1-1.0); Monocytes % 8.1 % (1.7-9.3); Neutrophils # 9.5 K/mm3 (1.8-7.8); Neutrophils % 82.5 % (37.0-80.0); Platelet Count 385 K/mm3 (142-424); Red Cell Distribution Width 13.9 % (11.5-17.5); White Blood Count 11.5 K/mm3 (4.8-10.8)
[2021-05-12 06:59] LABS: Lactate Dehydrogenase 160 U/L (313-618)
[2021-05-12 07:05] LABS: Anion Gap 10.5 mEq/L (5-15); Blood Urea Nitrogen 16 mg/dl (9-20); Calcium 8.2 mg/dl (8.4-10.2); Carbon Dioxide 25 mmol/L (22.0-30.0); Chloride 102 mmol/L (98-107); Creatinine Clearance Estimated 102 mL/min (50-200); Estimated Glomerular Filt Rate 113 ml/min (>60); GFR (African American) 137 ML/MIN (>60); Glucose 124 mg/dl (74-100); Potassium 4.5 mmoL/L (3.5-5.1); Sodium 133 mmol/L (136-145)
[2021-05-12 08:00] VITALS: BP 141/81; PULSE 66; RESP 16; TEMP 36.6; O2SAT 94
--- NOTE | 2021-05-12 08:05 | XR_ITS ---
FINAL REPORT CLINICAL HISTORY: CHEST TUBE, EFFUSION COMPARISON: 05/11/2021 FINDINGS: A single view of the chest was obtained. The patient is status post median sternotomy. There is mild cardiomegaly. The right large bore chest tube has been retracted significantly and may no longer be in the pleural space. There is a small to moderate right pleural effusion. There is right lower lobe consolidation. There is no pneumothorax. IMPRESSION: Interval retraction of right large bore chest tube. Moderate right pleural effusion with right lower lobe consolidation. Reviewed, Interpreted and Dictated by Deon Denney MD Transcribed by Kelly Merrill Authenticated by Deon Denney MD on 05/12/2021 11:26:30 AM [facility]
--- NOTE | 2021-05-12 08:18 | HMH.GSPN ---
Subjective Narrative: Patient has had some right-sided chest pain. He did undergo repeat chest x-ray due to the pain after his chest tube placement and this revealed that the chest tube had been withdrawn somewhat. Has had a significant amount of output requiring Pleur-evac change. Progress Note: A&P Assessment and Plan for All Diagnoses:: Continue chest tube management as per pulmonary. Chest x-ray ordered this morning. Exam Vital signs and Labs for Last 24 Hours: Temp Pulse Resp BP Pulse Ox 97.9 F 66 16 141/81 H 94 L 05/12/21 08:00 05/12/21 08:00 05/12/21 08:00 05/12/21 08:00 05/12/21 08:00 Laboratory Results - last 24 hr 05/11/21 10:38: WBC 11.3 H, RBC 4.13 L, Hgb 14.2, Hct 43.7, MCV 105.8 H, MCH 34.5 H, MCHC 32.6, RDW 13.8, Plt Count 349, MPV 8.8, Neut % (Auto) 84.2 H, Lymph % (Auto) 6.8 L, [place] % (Auto) 8.3, Eos % (Auto) 0.3, Baso % (Auto) 0.3, Neut # (Auto) 9.5 H, Lymph # (Auto) 0.8, [place] # (Auto) 0.9, Eos # (Auto) 0.0, Baso # (Auto) 0.0 05/11/21 10:38: Sodium 136, Potassium 4.3, Chloride 102, Carbon Dioxide 29, Anion Gap 9.3, BUN 15, Creatinine 0.80, Estimated Creat Clear 109, Estimated GFR 97, Est GFR ( Amer) 117, Glucose 109 H, Calcium 8.1 L, Total Bilirubin 1.1, AST 30, ALT 27, Alkaline Phosphatase 153 H, Troponin I 0.04 H, Total Protein 6.7, Albumin 3.4 L, Globulin 3.3 H, Albumin/Globulin Ratio 1.0 L 05/11/21 10:38: Procalcitonin 0.107 05/11/21 12:45: SARS-CoV-2 (PCR) Not detected, Influenza A Untype (PCR) Not detected, Influenza Type B (PCR) Not detected 05/11/21 12:45: Chlamy pneumoniae PCR Not detected, Adenovirus (PCR) Not detected, B. pertussis DNA (PCR) Not detected, Coronavirus OC43 (PCR) Not detected, Coronavirus HKU1 (PCR) Not detected, Coronavirus 229E (PCR) Not detected, Coronavirus NL63 (PCR) Not detected, Human Metapneumovir PCR Not detected, Influenza A (H1) PCR Not detected, Influ A (H1N1/09) PCR Not detected, Influenza A (H3) PCR Not detected, Influenza Type A (PCR) Not detected, Influenza Type B (PCR) Not detected, M. pneumoniae (PCR) Not detected, Parainfluenza 1 (PCR) Not detected, Parainfluenza 2 (PCR) Not detected, Parainfluenza 3 (PCR) Not detected, Parainfluenza 4 (PCR) Not detected, RSV (PCR) Not detected, Entero/Rhino (PCR) Not detected 05/11/21 15:30: Fluid Source Thoracentesis fluid, Fluid Volume 104, Fluid Appearance Cloudy, Fluid RBC (Auto) < 10, Fld Tot Nucleated Cell 1052, Fld Polynuclear WBCs % 70, Fld Mononuclear WBCs % 30 05/12/21 06:13: Lactate Dehydrogenase 160 L 05/12/21 06:13: WBC 11.5 H, RBC 4.10 L, Hgb 14.5, Hct 43.1, MCV 105.1 H, MCH 35.3 H, MCHC 33.6, RDW 13.9, Plt Count 385, MPV 9.3, Neut % (Auto) 82.5 H, Lymph % (Auto) 8.7 L, [place] % (Auto) 8.1, Eos % (Auto) 0.3, Baso % (Auto) 0.4, Neut # (Auto) 9.5 H, Lymph # (Auto) 1.0, [place] # (Auto) 0.9, Eos # (Auto) 0.0, Baso # (Auto) 0.1 05/12/21 06:13: Sodium 133 L, Potassium 4.5, Chloride 102, Carbon Dioxide 25, Anion Gap 10.5, BUN 16, Creatinine 0.70, Estimated Creat Clear 102, Estimated GFR 113, Est GFR ( Amer) 137, Glucose 124 H, Calcium 8.2 L I & O for Last 24 hours: Intake & Output 05/09/21 05/10/21 05/11/21 05/12/21 11:59 11:59 11:59 11:59 Intake Total 0 / 0 Output Total 2290 / 2290 Balance -2290 / -2290 Weight 230 lb 215 lb 14.4 oz Microbiology Reports for the Last 24 Hours: Microbiology 05/11/21 15:30 Pleural Fluid - Pleura Gram Stain - Final 05/11/21 13:25 Sputum - Expectorated Sputum Gram Stain - Final - Routine Chest/Breast/Axilla Exam Comments: Chest tube dressing intact. Does appear as though the chest tube may have been withdrawn somewhat.
--- NOTE | 2021-05-12 08:33 | HMH.PNCARD ---
Subjective Date: 05/12/21 Time: 08:33 Principal diagnosis: Pneumonia Interval history: 65-year-old white male in bed visibly uncomfortable with chest tube in right lung. Results of echocardiogram show preserved ejection fraction with grade 2 diastolic dysfunction. Exam Vital signs and Labs for Last 24 Hours: Temp Pulse Resp BP Pulse Ox 97.9 F 66 16 141/81 H 94 L 05/12/21 08:00 05/12/21 08:00 05/12/21 08:00 05/12/21 08:00 05/12/21 08:00 Laboratory Results - last 24 hr 05/11/21 10:38: WBC 11.3 H, RBC 4.13 L, Hgb 14.2, Hct 43.7, MCV 105.8 H, MCH 34.5 H, MCHC 32.6, RDW 13.8, Plt Count 349, MPV 8.8, Neut % (Auto) 84.2 H, Lymph % (Auto) 6.8 L, [place] % (Auto) 8.3, Eos % (Auto) 0.3, Baso % (Auto) 0.3, Neut # (Auto) 9.5 H, Lymph # (Auto) 0.8, [place] # (Auto) 0.9, Eos # (Auto) 0.0, Baso # (Auto) 0.0 05/11/21 10:38: Sodium 136, Potassium 4.3, Chloride 102, Carbon Dioxide 29, Anion Gap 9.3, BUN 15, Creatinine 0.80, Estimated Creat Clear 109, Estimated GFR 97, Est GFR ( Amer) 117, Glucose 109 H, Calcium 8.1 L, Total Bilirubin 1.1, AST 30, ALT 27, Alkaline Phosphatase 153 H, Troponin I 0.04 H, Total Protein 6.7, Albumin 3.4 L, Globulin 3.3 H, Albumin/Globulin Ratio 1.0 L 05/11/21 10:38: Procalcitonin 0.107 05/11/21 12:45: SARS-CoV-2 (PCR) Not detected, Influenza A Untype (PCR) Not detected, Influenza Type B (PCR) Not detected 05/11/21 12:45: Chlamy pneumoniae PCR Not detected, Adenovirus (PCR) Not detected, B. pertussis DNA (PCR) Not detected, Coronavirus OC43 (PCR) Not detected, Coronavirus HKU1 (PCR) Not detected, Coronavirus 229E (PCR) Not detected, Coronavirus NL63 (PCR) Not detected, Human Metapneumovir PCR Not detected, Influenza A (H1) PCR Not detected, Influ A (H1N1/09) PCR Not detected, Influenza A (H3) PCR Not detected, Influenza Type A (PCR) Not detected, Influenza Type B (PCR) Not detected, M. pneumoniae (PCR) Not detected, Parainfluenza 1 (PCR) Not detected, Parainfluenza 2 (PCR) Not detected, Parainfluenza 3 (PCR) Not detected, Parainfluenza 4 (PCR) Not detected, RSV (PCR) Not detected, Entero/Rhino (PCR) Not detected 05/11/21 15:30: Fluid Source Thoracentesis fluid, Fluid Volume 104, Fluid Appearance Cloudy, Fluid RBC (Auto) < 10, Fld Tot Nucleated Cell 1052, Fld Polynuclear WBCs % 70, Fld Mononuclear WBCs % 30 05/12/21 06:13: Lactate Dehydrogenase 160 L 05/12/21 06:13: WBC 11.5 H, RBC 4.10 L, Hgb 14.5, Hct 43.1, MCV 105.1 H, MCH 35.3 H, MCHC 33.6, RDW 13.9, Plt Count 385, MPV 9.3, Neut % (Auto) 82.5 H, Lymph % (Auto) 8.7 L, [place] % (Auto) 8.1, Eos % (Auto) 0.3, Baso % (Auto) 0.4, Neut # (Auto) 9.5 H, Lymph # (Auto) 1.0, [place] # (Auto) 0.9, Eos # (Auto) 0.0, Baso # (Auto) 0.1 05/12/21 06:13: Sodium 133 L, Potassium 4.5, Chloride 102, Carbon Dioxide 25, Anion Gap 10.5, BUN 16, Creatinine 0.70, Estimated Creat Clear 102, Estimated GFR 113, Est GFR ( Amer) 137, Glucose 124 H, Calcium 8.2 L I & O for Last 24 hours: Intake & Output 05/09/21 05/10/21 05/11/21 05/12/21 11:59 11:59 11:59 11:59 Intake Total 0 / 0 Output Total 2290 / 2290 Balance -2290 / -2290 Weight 230 lb 215 lb 14.4 oz Microbiology Reports for the Last 24 Hours: Microbiology 05/11/21 15:30 Pleural Fluid - Pleura Gram Stain - Final 05/11/21 13:25 Sputum - Expectorated Sputum Gram Stain - Final - Constitutional no acute distress - *Routine Respiratory Exam Present: wheezes Comments: Splinting when breathing due to discomfort. - *Routine Cardiovascular Exam Present: RRR Progress Note: A&P (1) Parapneumonic effusion Status: Acute (2) Chest tube in place Status: Acute (3) Right lower lobe pneumonia Status: Acute (4) History of coronary artery disease Status: Acute (5) Hypertension Status: Chronic Assessment and Plan for All Diagnoses:: 1. Right lower lobe pneumonia with parapneumonic effusion now with chest tube, defer to pulmonary and surgery 2. Mildly elevated troponins, likely demand isc
--- NOTE | 2021-05-12 09:13 | HMH.HP ---
*Admission Date: 05/11/21 *Chief complaint: Shortness of breath *History of present illness: Patient is a 65-year-old male who presents the ED today for further evaluation of right sided chest pain. Patient states that he has been having this pain for approximately 1 week now, states that it is been associated with shortness of breath, stating that he has had activity change at home with difficulty ambulating secondary to the shortness of breath, states that he has been able to take care of himself but has had decreased level of function. Patient states that his chest pain is on the right side, and does not describe pleuritic pain rather describes pain that is worse with motion, and feels under his ribs, states that when he presses on his ribs it does not hurt, states he has not fallen, has no lower extremity swelling (Per Dr. Padron). Right-sided chest tube placed per surgery after 150 cc straw fluid removed per pulmonology during thoracentesis. 65-year-old male patient sitting up in bed, visibly in pain. He reports as needed pain medicine has not been effective in controlling his pain throughout the night. Chest tube in place and intact to right side draining serosanguineous fluids. Current oxygen saturation 94% on room air [facility] History I have reviewed the patient's past medical history: Yes Medical History: Reports:: Arrhythmia, Atrial Fibrillation, Cardiomyopathy, Coronary Artery Disease, Gastroesophageal Reflux Disease(GERD), Hyperlipidemia, Hypertension Denies:: Cancer, Diabetes Mellitus Type 1, Diabetes Mellitus Type 2, Internal Pacemaker, MRSA, Seizures *Have you ever received a pneumonia vaccine?: No *Have you received a flu vaccine this season?: No Other Surgeries: Yes: No Previous Surgery, Angiogram, CABG (15 years ago), Cardiac Catheterization, Colonoscopy, Coronary Stent, Other. No: Pacemaker Amputation: No Fractures: No - *Social History Last grade of school completed: Some college Smoking Status: Current every day smoker Tobacco Type: cigarettes # Packs/Day (cigarettes): 1 Alcohol Intake: current Alcohol Intake Frequency:: 0-2 drinks per day Substance Use Type: denies use *Occupational Status:: employed Housing: house Household Members: spouse *Travel in the last 8 weeks: Inside the [place] Family Hx:: Heart Attack Review of Systems - Review of Systems Review of systems:: pertinent systems reviewed and negative unless documented below - Constitutional Denies body ache(s), Denies excessive sweating - Eyes Denies blurry vision, Denies double vision - ENT Denies change in voice, Denies dizziness - *Cardiovascular Reports chest pain, Reports chest pain at rest, Reports shortness of breath, Reports shortness of breath with activity - *Respiratory Reports shortness of breath, Reports shortness of breath with activity - *Gastrointestinal Denies change in bowel habits, Denies coffee ground vomit - *Musculoskeletal Denies abnormal walking, Denies muscle cramps - Integumentary/Breasts Denies change in skin color, Denies new lesions - *Neurologic Denies abnormal walking, Denies unsteadiness - Psychiatric Denies anxiety, Denies change in appetite - Endocrine Denies cold intolerance, Denies increased thirst - Hematologic/Lymphatic Denies easy bleeding, Denies easy bruising - Allergic/Immunologic Denies GI upset with certain foods, Denies tongue swelling Meds Home Medications Medication Instructions Recorded Confirmed Type Amiodarone HCl 200 mg PO DAILY 05/11/21 05/11/21 History Aspirin [Low Dose Aspirin EC] 81 mg PO DAILY 05/11/21 05/11/21 History Atorvastatin Calcium [Lipitor 40mg 80 mg PO DAILY 05/11/21 05/11/21 History Tab] Clopidogrel Bisulfate [Plavix] 75 mg PO DAILY 05/11/21 05/11/21 History Isosorbide Mononitrate [Isosorbide 30 mg PO DAILY 05/11/21 05/11/21 History Mononitrate ER] Pantoprazole Sodium 40 mg PO DAILY 05/11/21 05/11/21 History bisoproloL fumarate [Bi
--- NOTE | 2021-05-12 09:18 | HMH.PULMPN ---
Internal Medicine - PN: Subj *Date: 05/12/21 *Time: 11:08 Interval history: No acute respiratory vents overnight. Exam - Constitutional Constitutional:: Present: no acute distress, comfortable - HENMT Exam HENMT: Present: normocephalic, atraumatic - Eye Exam Eyes:: Present: normal appearance both eyes and related structures - Neck Exam Neck:: Present: normal visual inspection - Respiratory Exam Respiratory:: Present: able to speak in complete sentences, no respiratory distress. Absent: wheezing - Cardiovascular Exam Cardiac:: Present: S1, S2 - GI Exam GI:: Present: soft - Skin Exam Skin: Present: warm, no rash - Neurological Exam Neurological: Present: alert, awake - Extremities Exam Extremities: Present: no cyanosis, no clubbing, no edema Assessment and Plan (1) Parapneumonic effusion Status: Acute Category: Medical Code(s): J18.9 - Pneumonia, unspecified organism; J91.8 - Pleural effusion in other conditions classified elsewhere (2) Chest tube in place Status: Acute Category: Medical Code(s): Z96.89 - Presence of other specified functional implants (3) Right lower lobe pneumonia Status: Acute Qualifiers: Pneumonia type: due to unspecified organism Qualified Code(s): J18.9 - Pneumonia, unspecified organism Category: Medical Code(s): J18.9 - Pneumonia, unspecified organism (4) History of coronary artery disease Status: Acute Category: Medical Code(s): Z86.79 - Personal history of other diseases of the circulatory system (5) Hypertension Status: Chronic Qualifiers: Hypertension type: essential hypertension Category: Medical Code(s): I10 - Essential (primary) hypertension - Assessment and plan all Dx Assessment and Plan for all problems:: #Right-sided pleural effusion: #Community-acquired pneumonia: 65-year-old current smoker greater than [id number] smoker is not any inhalers or oxygen at baseline, no prior respiratory complaints/ H/O CABG noted to have symptoms of worsening cough and productive phlegm and subjective fevers for the last 10 days that is not getting better and presented to the ER. Patient also complains of atypical chest pain on admission, cardiology consulted. Chest x-ray on admission showed right lower lobe infiltrates and follow-up CT chest WO showed right lower lobe dense consolidative airspace disease, adjacent atelectasis along with large right-sided pleural effusion. Patient also have a pocket of small loculated pleural effusion in the anterior part of the right lower lobe on the CAT scan. The scan also showed prominent left upper lobe groundglass airspace disease. Given recent pneumonia, airspace disease on chest CT concerning for parapneumonic effusion. Interval update: Patient denies any respiratory complaints. Admits right-sided chest pain. Ultrasound showed loculated effusion, pigtail placed and diagnostic thoracentesis were performed and consulted surgery for chest tube placement. Patient was also given TPA dornase. Chest x-ray this morning improving effusion however concerning for chest tube dislodgment, surgery following the patient. Chest tube still draining. We will continue to monitor. Plan: -Continue TPA dornase twice daily -Follow with pleural fluid studies. Pleural fluid Gram stain no organisms seen so far. -Continue ceftriaxone and Azithromycin for community-acquired pneumonia. -Follow with sputum cultures with indiction if needed. -DuoNebs every 6 hours as needed. #Thank for involving pulmonary in this patient care. We will continue to follow.
--- NOTE | 2021-05-12 09:33 | HMH.ACPN2 ---
Internal Medicine - PN: Subj *Date: 05/12/21 *Time: 09:33 Exam Vital signs and Labs for Last 24 Hours: Temp Pulse Resp BP Pulse Ox 97.9 F 66 16 141/81 H 94 L 05/12/21 08:00 05/12/21 08:00 05/12/21 08:00 05/12/21 08:00 05/12/21 08:00 Laboratory Results - last 24 hr 05/11/21 10:38: WBC 11.3 H, RBC 4.13 L, Hgb 14.2, Hct 43.7, MCV 105.8 H, MCH 34.5 H, MCHC 32.6, RDW 13.8, Plt Count 349, MPV 8.8, Neut % (Auto) 84.2 H, Lymph % (Auto) 6.8 L, Meagher % (Auto) 8.3, Eos % (Auto) 0.3, Baso % (Auto) 0.3, Neut # (Auto) 9.5 H, Lymph # (Auto) 0.8, Meagher # (Auto) 0.9, Eos # (Auto) 0.0, Baso # (Auto) 0.0 05/11/21 10:38: Sodium 136, Potassium 4.3, Chloride 102, Carbon Dioxide 29, Anion Gap 9.3, BUN 15, Creatinine 0.80, Estimated Creat Clear 109, Estimated GFR 97, Est GFR ( Amer) 117, Glucose 109 H, Calcium 8.1 L, Total Bilirubin 1.1, AST 30, ALT 27, Alkaline Phosphatase 153 H, Troponin I 0.04 H, Total Protein 6.7, Albumin 3.4 L, Globulin 3.3 H, Albumin/Globulin Ratio 1.0 L 05/11/21 10:38: Procalcitonin 0.107 05/11/21 12:45: SARS-CoV-2 (PCR) Not detected, Influenza A Untype (PCR) Not detected, Influenza Type B (PCR) Not detected 05/11/21 12:45: Chlamy pneumoniae PCR Not detected, Adenovirus (PCR) Not detected, B. pertussis DNA (PCR) Not detected, Coronavirus OC43 (PCR) Not detected, Coronavirus HKU1 (PCR) Not detected, Coronavirus 229E (PCR) Not detected, Coronavirus NL63 (PCR) Not detected, Human Metapneumovir PCR Not detected, Influenza A (H1) PCR Not detected, Influ A (H1N1/09) PCR Not detected, Influenza A (H3) PCR Not detected, Influenza Type A (PCR) Not detected, Influenza Type B (PCR) Not detected, M. pneumoniae (PCR) Not detected, Parainfluenza 1 (PCR) Not detected, Parainfluenza 2 (PCR) Not detected, Parainfluenza 3 (PCR) Not detected, Parainfluenza 4 (PCR) Not detected, RSV (PCR) Not detected, Entero/Rhino (PCR) Not detected 05/11/21 15:30: Fluid Source Thoracentesis fluid, Fluid Volume 104, Fluid Appearance Cloudy, Fluid RBC (Auto) < 10, Fld Tot Nucleated Cell 1052, Fld Polynuclear WBCs % 70, Fld Mononuclear WBCs % 30 05/12/21 06:13: Lactate Dehydrogenase 160 L 05/12/21 06:13: WBC 11.5 H, RBC 4.10 L, Hgb 14.5, Hct 43.1, MCV 105.1 H, MCH 35.3 H, MCHC 33.6, RDW 13.9, Plt Count 385, MPV 9.3, Neut % (Auto) 82.5 H, Lymph % (Auto) 8.7 L, Meagher % (Auto) 8.1, Eos % (Auto) 0.3, Baso % (Auto) 0.4, Neut # (Auto) 9.5 H, Lymph # (Auto) 1.0, Meagher # (Auto) 0.9, Eos # (Auto) 0.0, Baso # (Auto) 0.1 05/12/21 06:13: Sodium 133 L, Potassium 4.5, Chloride 102, Carbon Dioxide 25, Anion Gap 10.5, BUN 16, Creatinine 0.70, Estimated Creat Clear 102, Estimated GFR 113, Est GFR ( Amer) 137, Glucose 124 H, Calcium 8.2 L I & O for Last 24 hours: Intake & Output 05/09/21 05/10/21 05/11/21 05/12/21 23:59 23:59 23:59 23:59 Intake Total 0 / 0 Output Total 1400 / 1400 890 / 890 Balance -1400 / -1400 -890 / -890 Weight 221 lb 7 oz 215 lb 14.4 oz Microbiology Reports for the Last 24 Hours: Microbiology 05/11/21 15:30 Pleural Fluid - Pleura Gram Stain - Final 05/11/21 13:25 Sputum - Expectorated Sputum Gram Stain - Final Assessment and Plan (1) Parapneumonic effusion Status: Acute Category: Medical Code(s): J18.9 - Pneumonia, unspecified organism; J91.8 - Pleural effusion in other conditions classified elsewhere (2) Chest tube in place Status: Acute Category: Medical Code(s): Z96.89 - Presence of other specified functional implants (3) Right lower lobe pneumonia Status: Acute Qualifiers: Pneumonia type: due to unspecified organism Qualified Code(s): J18.9 - Pneumonia, unspecified organism Category: Medical Code(s): J18.9 - Pneumonia, unspecified organism (4) History of coronary artery disease Status: Acute Category: Medical Code(s): Z86.79 - Personal history of other diseases of the circulatory system (5) Hypertension Status: Chronic Qualifiers: Hypertension type: essential hypertens
--- NOTE | 2021-05-12 10:28 | PC.NURSE ---
PT refused to have EVS clean his room.
--- NOTE | 2021-05-12 10:29 | PC.NURSE ---
PT refused bath and linen change. notified RN.
--- NOTE | 2021-05-12 12:11 | HMH.PROC ---
[facility] Procedure Note Procedure Note:: Procedure performed: Placement of right 28 [place] thoracostomy tube Anesthesia: 30 cc 1% Xylocaine Indications: Chest x-ray today revealed that the chest tube had retracted further out of the chest cavity. Inspection of the chest tube site revealed that the chest tube was barely in the chest. Pulmonology states that patient requires chest tube. Plan was made for removal and replacement of new chest tube. Procedure description: Consent was obtained. Patient was positioned and somewhat lateral decubitus position. The previous chest tube was removed as were sutures. The right chest was prepped initially with Hibiclens with care taken to prep out the tract of the prior chest tube as well. This was then dried and the chest was prepped with ChloraPrep. Area was draped. 28 [place] chest tube was then manipulated through the prior prepped tract and into the right pleural space. It was secured with a 0 Surgilon suture. Xeroform and clean dry sterile dressing was applied.
--- NOTE | 2021-05-12 12:23 | XR_ITS ---
FINAL REPORT CLINICAL HISTORY: CHEST TUBE PLACEMENT COMPARISON: Earlier the same day FINDINGS: SINGLE VIEW CHEST. The right chest tube has been advanced and now projects in the right hemithorax. In addition, there is a pigtail catheter present at the right lung base. There is mild cardiomegaly. Sternotomy wires are present. The mediastinum is unremarkable. There is a small right pleural effusion or right lower lobe atelectasis present. There is no pneumothorax. IMPRESSION: Right chest tube has been advanced and now projects in the right hemithorax. Small right pleural effusion or right lower lobe atelectasis. Reviewed, Interpreted and Dictated by Deon Denney MD Transcribed by Cindi Bailey Authenticated by Deon Denney MD on 05/12/2021 01:53:25 PM [facility]
[2021-05-12 13:28] VITALS: BMI 26.8
--- NOTE | 2021-05-12 14:20 | PC.NURSE ---
noted dressing to new chest tube was saturated with blood. changed it. new dressing already noted to have some showing blood and leaking around insertion site. dr giraldo is aware.
--- NOTE | 2021-05-12 14:28 | PC.WOUNDNOTE ---
l arm skin tear
--- NOTE | 2021-05-12 15:52 | PC.NURSE ---
dr painter made aware of some bleeding around site. stated to hold the 1600 dose of tpa but to give the 0400 dose. patient has had complaints all day of pain, but it has been better since changing to toradol and dilaudid. no other complaints. has brought food for patient. refusing meals here. vitals stable. no shortness of breath noted. slight cough with production noted, patient does complain of pain with the coughing. rings out as needed
[2021-05-12 16:00] VITALS: BP 117/62; PULSE 55; RESP 16; TEMP 36.6; O2SAT 94
[2021-05-12 20:00] VITALS: BP 127/58; PULSE 70; RESP 16; TEMP 36.7; O2SAT 95
[2021-05-13] VITALS: BP 139/74; PULSE 55; RESP 14; TEMP 36.8; O2SAT 94
[2021-05-13 04:00] VITALS: BP 128/50; PULSE 53; RESP 16; TEMP 37.1; O2SAT 100; BMI 27.1
--- NOTE | 2021-05-13 05:05 | PC.NURSE ---
dressing changed to chest tube site, area dried, vaseline gauze and sterile 4x4's placed around site and secured with foam tape, pt tolerated well, chest clamped at this time after tpa and dornase given, will continue to monitor, it was noted blood tinged drainage on chux and bed sheets from drainage around chest tube site.
--- NOTE | 2021-05-13 06:57 | P.PN_ITS ---
Subjective Patient reports: no new complaints Narrative: Per nursing, the patient continues to have some sanguinous ooze on his chest tube dressing. The chest tube dressing has recently been replaced. Progress Note: A&P (1) Parapneumonic effusion Status: Acute (2) Chest tube in place Status: Acute Assessment and plan: Continue current chest tube drainage for now. Continue to monitor for signs of significant blood loss. The surgical service will continue to follow with primary care and pulmonology. (3) Right lower lobe pneumonia Status: Acute (4) History of coronary artery disease Status: Acute (5) Hypertension Status: Chronic Exam Vital signs and Labs for Last 24 Hours: Temp Pulse Resp BP Pulse Ox 98.7 F 53 L 16 128/50 L 100 05/13/21 04:00 05/13/21 04:00 05/13/21 04:00 05/13/21 04:00 05/13/21 04:00 Laboratory Results - last 24 hr 05/12/21 06:13: Lactate Dehydrogenase 160 L 05/12/21 06:13: WBC 11.5 H, RBC 4.10 L, Hgb 14.5, Hct 43.1, MCV 105.1 H, MCH 35.3 H, MCHC 33.6, RDW 13.9, Plt Count 385, MPV 9.3, Neut % (Auto) 82.5 H, Lymph % (Auto) 8.7 L, [place] % (Auto) 8.1, Eos % (Auto) 0.3, Baso % (Auto) 0.4, Neut # (Auto) 9.5 H, Lymph # (Auto) 1.0, [place]aston # (Auto) 0.9, Eos # (Auto) 0.0, Baso # (Auto) 0.1 05/12/21 06:13: Sodium 133 L, Potassium 4.5, Chloride 102, Carbon Dioxide 25, Anion Gap 10.5, BUN 16, Creatinine 0.70, Estimated Creat Clear 102, Estimated GFR 113, Est GFR ( Amer) 137, Glucose 124 H, Calcium 8.2 L I & O for Last 24 hours: Intake & Output 05/10/21 05/11/21 05/12/21 05/13/21 11:59 11:59 11:59 11:59 Intake Total 0 / 0 Output Total 2290 / 2290 1080 / 1080 Balance -2290 / -2290 -1080 / -1080 Weight 230 lb 215 lb 14.4 oz 218 lb 8 oz Microbiology Reports for the Last 24 Hours: Microbiology 05/12/21 09:45 Sputum - Expectorated Sputum Gram Stain - Final 05/11/21 15:30 Pleural Fluid - Pleura Gram Stain - Final 05/11/21 15:30 Pleural Fluid - Pleura Body Fluid Culture - Preliminary NO GROWTH AFTER 24 HOURS 05/11/21 13:25 Sputum - Expectorated Sputum Gram Stain - Final 05/11/21 13:25 Sputum - Expectorated Sputum Sputum Culture - Preliminary Gram Negative Rods - Constitutional no acute distress - *Routine Respiratory Exam Absent: respiratory distress Comments: Chest tube in position. The tube has just now been unclamped to allow TPA drainage.
[2021-05-13 07:23] LABS: Anion Gap 9.2 mEq/L (5-15); Blood Urea Nitrogen 29 mg/dl (9-20); Calcium 7.7 mg/dl (8.4-10.2); Carbon Dioxide 25 mmol/L (22.0-30.0); Chloride 103 mmol/L (98-107); Creatinine Clearance Estimated 103 mL/min (50-200); Estimated Glomerular Filt Rate 97 ml/min (>60); GFR (African American) 117 ML/MIN (>60); Glucose 101 mg/dl (74-100); Potassium 4.2 mmoL/L (3.5-5.1); Sodium 133 mmol/L (136-145)
[2021-05-13 07:30] LABS: Basophils % 0.2 % (0.1-2.0); Eosinophils % 0.2 % (0.1-12.0); Hematocrit 39.5 % (42.0-52.0); Hemoglobin 12.8 g/dL (14.1-18.0); Lymphocytes # 0.8 K/mm3 (0.7-4.5); Lymphocytes % 11.4 % (10-50); Mean Corpuscular HGB Conc 32.4 g/dL (31.8-35.4); Mean Corpuscular Hemoglobin 34.2 pg (27.0-31.2); Mean Corpuscular Volume 105.7 fl (80-94); Monocytes # 0.5 K/mm3 (0.1-1.0); Monocytes % 7.3 % (1.7-9.3); Neutrophils # 5.9 K/mm3 (1.8-7.8); Neutrophils % 80.9 % (37.0-80.0); Platelet Count 345 K/mm3 (142-424); Red Blood Count 3.74 M/mm3 (4.60-6.20); Red Cell Distribution Width 13.9 % (11.5-17.5); White Blood Count 7.2 K/mm3 (4.8-10.8)
[2021-05-13 08:00] VITALS: BP 118/55; PULSE 52; RESP 18; TEMP 36.6; O2SAT 94
--- NOTE | 2021-05-13 09:07 | XR_ITS ---
FINAL REPORT TECHNIQUE: Chest PA & Lateral CLINICAL HISTORY: effusion COMPARISON: May 12, 2021 FINDINGS: 2 views of the chest were performed. There is a right-sided large-bore chest tube. The heart size is normal. The mediastinum is within normal limits. There is opacity in the right lung base that may be due to atelectasis and developing pneumonia. The left lung is clear. There are no pleural effusions. There is no pneumothorax. The bony thorax appears intact. IMPRESSION: Right-sided chest tube without pneumothorax. Right base opacity may be due to atelectasis and developing pneumonia. Reviewed, Interpreted and Dictated by Deon Denney MD Transcribed by Caesar Reese Authenticated by Deon Denney MD on 05/13/2021 12:27:00 PM [facility]
--- NOTE | 2021-05-13 09:08 | HMH.PULMPN ---
Internal Medicine - PN: Subj *Date: 05/13/21 *Time: 11:20 Interval history: No acute respiratory events overnight. Continue to remain on room air. Exam - Constitutional Constitutional:: Present: no acute distress, comfortable - HENMT Exam HENMT: Present: normocephalic - Eye Exam Eyes:: Present: normal appearance both eyes and related structures - Neck Exam Neck:: Present: normal visual inspection - Respiratory Exam Respiratory:: Present: able to speak in complete sentences, no respiratory distress. Absent: accessory muscle use, wheezing - Cardiovascular Exam Cardiac:: Present: S1, S2 - GI Exam GI:: Present: soft - Skin Exam Skin: Present: warm, no rash - Neurological Exam Neurological: Present: alert, awake, normal cognition - Extremities Exam Extremities: Present: no cyanosis, no clubbing, no edema Assessment and Plan (1) Parapneumonic effusion Status: Acute Category: Medical Code(s): J18.9 - Pneumonia, unspecified organism; J91.8 - Pleural effusion in other conditions classified elsewhere (2) Chest tube in place Status: Acute Category: Medical Code(s): Z96.89 - Presence of other specified functional implants (3) Right lower lobe pneumonia Status: Acute Qualifiers: Qualified Code(s): J18.9 - Pneumonia, unspecified organism Category: Medical Code(s): J18.9 - Pneumonia, unspecified organism (4) History of coronary artery disease Status: Acute Category: Medical Code(s): Z86.79 - Personal history of other diseases of the circulatory system (5) Hypertension Status: Chronic Category: Medical Code(s): I10 - Essential (primary) hypertension - Assessment and plan all Dx Assessment and Plan for all problems:: #Right-sided pleural effusion: #Community-acquired pneumonia: 65-year-old current smoker greater than [id number] smoker is not any inhalers or oxygen at baseline, no prior respiratory complaints/ H/O CABG noted to have symptoms of worsening cough and productive phlegm and subjective fevers for the last 10 days that is not getting better and presented to the ER. Patient also complains of atypical chest pain on admission, cardiology consulted. Chest x-ray on admission showed right lower lobe infiltrates and follow-up CT chest WO showed right lower lobe dense consolidative airspace disease, adjacent atelectasis along with large right-sided pleural effusion. Patient also have a pocket of small loculated pleural effusion in the anterior part of the right lower lobe on the CAT scan. The scan also showed prominent left upper lobe groundglass airspace disease. Given recent pneumonia, airspace disease on chest CT concerning for parapneumonic effusion. Diagnostic thoracentesis performed, chest tube placement patient has been receiving TPA dornase. Chest tube dislodged and was replaced by surgery team yesterday. Interval update: No Acute respiratory events overnight. Patient continued to remain on room air. Chest tube replaced yesterday. We will follow repeat chest x-ray today. Sputum growing Proteus, sensitive to levofloxacin and ceftriaxone. Pleural fluid cultures negative so far. Pleural fluid protein LDH along with cytopathology still pending. Plan: -Chest x-ray PA lateral reviewed, significant improvement in effusion except for residual in the posterior sulcus. Will connect the pigtail also to suction after the next TPA dornase. -Continue TPA dornase twice daily- received doses 3/6 -Follow with pleural fluid studies. Pleural fluid Gram stain no organisms seen so far. -Continue ceftriaxone and Azithromycin for community-acquired pneumonia, will change levofloxacin on discharge to complete a total of 7-day course. -DuoNebs every 6 hours as needed. #Thank for involving pulmonary in this patient care. We will continue to follow.
--- NOTE | 2021-05-13 11:20 | HMH.ACPN2 ---
Internal Medicine - PN: Subj *Date: 05/13/21 *Time: 08:05 Interval history: pt laying in bed chest tube in place family at bedside Exam Vital signs and Labs for Last 24 Hours: Temp Pulse Resp BP Pulse Ox 97.8 F 52 L 18 118/55 L 94 L 05/13/21 08:00 05/13/21 08:00 05/13/21 08:00 05/13/21 08:00 05/13/21 08:00 Laboratory Results - last 24 hr 05/13/21 06:24: WBC 7.2 D, RBC 3.74 L, Hgb 12.8 L, Hct 39.5 L, MCV 105.7 H, MCH 34.2 H, MCHC 32.4, RDW 13.9, Plt Count 345, MPV 9.0, Neut % (Auto) 80.9 H, Lymph % (Auto) 11.4, [place] % (Auto) 7.3, Eos % (Auto) 0.2, Baso % (Auto) 0.2, Neut # (Auto) 5.9, Lymph # (Auto) 0.8, [place] # (Auto) 0.5, Eos # (Auto) 0.0, Baso # (Auto) 0.0 05/13/21 06:24: Sodium 133 L, Potassium 4.2, Chloride 103, Carbon Dioxide 25, Anion Gap 9.2, BUN 29 H D, Creatinine 0.80, Estimated Creat Clear 103, Estimated GFR 97, Est GFR ( Amer) 117, Glucose 101 H, Calcium 7.7 L I & O for Last 24 hours: Intake & Output 05/10/21 05/11/21 05/12/21 05/13/21 11:59 11:59 11:59 11:59 Intake Total 0 / 0 240 / 240 Output Total 2290 / 2290 1080 / 1080 Balance -2290 / -2290 -840 / -840 Weight 230 lb 215 lb 14.4 oz 218 lb 8 oz Microbiology Reports for the Last 24 Hours: Microbiology 05/11/21 13:25 Sputum - Expectorated Sputum Gram Stain - Final 05/11/21 13:25 Sputum - Expectorated Sputum Sputum Culture - Final Proteus mirabilis 05/12/21 09:45 Sputum - Expectorated Sputum Gram Stain - Final 05/11/21 15:30 Pleural Fluid - Pleura Gram Stain - Final 05/11/21 15:30 Pleural Fluid - Pleura Body Fluid Culture - Preliminary NO GROWTH AFTER 24 HOURS - Constitutional no acute distress - *Routine HEENT Exam Head: Present: normocephalic Eye: Present: PERRL ENT: Present: mucous membranes moist - *Routine Neck Exam Present: supple. Absent: lymphadenopathy - *Routine Respiratory Exam Present: CTA bilaterally Comments: chest tube in place dressing c/d/i - *Routine Cardiovascular Exam Present: RRR - *Routine Abdominal Exam Present: soft, normoactive bowel sounds. Absent: tenderness - *Routine Extremities Exam Absent: cyanosis, clubbing, edema - *Routine Skin Exam Present: warm. Absent: rash Comments: dressing c/d/i - *Routine Neurological Exam Present: alert, oriented X3 Assessment and Plan (1) Parapneumonic effusion Status: Acute Category: Medical Code(s): J18.9 - Pneumonia, unspecified organism; J91.8 - Pleural effusion in other conditions classified elsewhere (2) Chest tube in place Status: Acute Category: Medical Code(s): Z96.89 - Presence of other specified functional implants (3) Right lower lobe pneumonia Status: Acute Qualifiers: Pneumonia type: due to unspecified organism Qualified Code(s): J18.9 - Pneumonia, unspecified organism Category: Medical Code(s): J18.9 - Pneumonia, unspecified organism (4) History of coronary artery disease Status: Acute Category: Medical Code(s): Z86.79 - Personal history of other diseases of the circulatory system (5) Hypertension Status: Chronic Qualifiers: Hypertension type: essential hypertension Category: Medical Code(s): I10 - Essential (primary) hypertension - Assessment and plan all Dx Assessment and Plan for all problems:: rounded with dr soto all orders per dr soto pulm consult surgery consult
[2021-05-13 12:00] VITALS: BP 118/62; PULSE 53; RESP 16; TEMP 37.2; O2SAT 95
[2021-05-13 12:14] LABS: Albumin, Body Fluid 2.8 g/dL (Not Estab.); Glucose, Body Fluid 24 mg/dL (.); LD, Body Fluid 960 IU/L (.); Protein, Body Fluid 4.4 g/dL (.)
[2021-05-13 16:00] VITALS: BP 130/72; PULSE 53; RESP 16; TEMP 36.7; O2SAT 96
[2021-05-13 20:00] VITALS: BP 110/58; PULSE 61; RESP 16; TEMP 36.4; O2SAT 92
[2021-05-14] VITALS (7 sets, daily range): BP systolic 112–150; BP diastolic 50–72; PULSE 48–93; RESP 15–18; TEMP 36.4–36.9; O2SAT 93–95; BMI 26.6
[2021-05-14 08:03] LABS: Basophils % 0.3 % (0.1-2.0); Eosinophils % 0.5 % (0.1-12.0); Hematocrit 41.1 % (42.0-52.0); Hemoglobin 13.3 g/dL (14.1-18.0); Lymphocytes # 0.7 K/mm3 (0.7-4.5); Lymphocytes % 8.6 % (10-50); Mean Corpuscular HGB Conc 32.4 g/dL (31.8-35.4); Mean Corpuscular Volume 104.9 fl (80-94); Mean Platelet Volume 9.1 fl (7.4-10.4); Monocytes # 0.8 K/mm3 (0.1-1.0); Neutrophils # 6.3 K/mm3 (1.8-7.8); Neutrophils % 80.6 % (37.0-80.0); Platelet Count 396 K/mm3 (142-424); Red Blood Count 3.92 M/mm3 (4.60-6.20); White Blood Count 7.8 K/mm3 (4.8-10.8)
[2021-05-14 08:20] LABS: Anion Gap 6.2 mEq/L (5-15); Blood Urea Nitrogen 30 mg/dl (9-20); Calcium 7.8 mg/dl (8.4-10.2); Carbon Dioxide 29 mmol/L (22.0-30.0); Chloride 101 mmol/L (98-107); Creatinine Clearance Estimated 101 mL/min (50-200); Estimated Glomerular Filt Rate 97 ml/min (>60); GFR (African American) 117 ML/MIN (>60); Glucose 96 mg/dl (74-100); Potassium 4.2 mmoL/L (3.5-5.1); Sodium 132 mmol/L (136-145)
--- NOTE | 2021-05-14 08:23 | PC.NURSE ---
Patient has had 220ml out of pigtail chest tube; SS drainage noted. Patient has had no output from chest tube to the lateral aspect of chest. Patient dsg was changed in sterile fashion.
--- NOTE | 2021-05-14 09:17 | XR_ITS ---
FINAL REPORT CLINICAL HISTORY: Effusion COMPARISON: 05/13/2021 FINDINGS: TWO VIEWS OF THE CHEST There is mild cardiomegaly. The mediastinum is unremarkable. Right lower lobe airspace infiltrate is identified, stable from prior. Right large bore chest tube is unchanged in position. There is no pneumothorax. IMPRESSION: Stable right lower lobe airspace infiltrate. Reviewed, Interpreted and Dictated by Deon Denney MD Transcribed by Trinity Jain Authenticated by Deon Denney MD on 05/14/2021 11:23:[address] [facility]
--- NOTE | 2021-05-14 09:17 | HMH.PULMPN ---
Internal Medicine - PN: Subj *Date: 05/14/21 *Time: 11:25 Interval history: No acute respiratory events overnight. Exam - Constitutional Constitutional:: Present: no acute distress, comfortable - HENMT Exam HENMT: Present: normocephalic, atraumatic - Eye Exam Eyes:: Present: normal appearance both eyes and related structures - Neck Exam Neck:: Present: normal visual inspection - Respiratory Exam Respiratory:: Present: able to speak in complete sentences, no respiratory distress - Cardiovascular Exam Cardiac:: Present: S1, S2 - GI Exam GI:: Present: soft - Skin Exam Skin: Present: warm, no rash - Neurological Exam Neurological: Present: alert, awake, normal cognition - Extremities Exam Extremities: Present: no cyanosis, no clubbing, no edema Assessment and Plan (1) Parapneumonic effusion Status: Acute Category: Medical Code(s): J18.9 - Pneumonia, unspecified organism; J91.8 - Pleural effusion in other conditions classified elsewhere (2) Chest tube in place Status: Acute Category: Medical Code(s): Z96.89 - Presence of other specified functional implants (3) Right lower lobe pneumonia Status: Acute Qualifiers: Pneumonia type: due to unspecified organism Qualified Code(s): J18.9 - Pneumonia, unspecified organism Category: Medical Code(s): J18.9 - Pneumonia, unspecified organism (4) History of coronary artery disease Status: Acute Category: Medical Code(s): Z86.79 - Personal history of other diseases of the circulatory system (5) Hypertension Status: Chronic Qualifiers: Hypertension type: essential hypertension Category: Medical Code(s): I10 - Essential (primary) hypertension - Assessment and plan all Dx Assessment and Plan for all problems:: #Right-sided Empyema :: #Community-acquired pneumonia: 65-year-old current smoker greater than [id number] smoker is not any inhalers or oxygen at baseline, no prior respiratory complaints/ H/O CABG noted to have symptoms of worsening cough and productive phlegm and subjective fevers for the last 10 days that is not getting better and presented to the ER. Patient also complains of atypical chest pain on admission, cardiology consulted. Chest x-ray on admission showed right lower lobe infiltrates and follow-up CT chest WO showed right lower lobe dense consolidative airspace disease, adjacent atelectasis along with large right-sided pleural effusion. Patient also have a pocket of small loculated pleural effusion in the anterior part of the right lower lobe on the CAT scan. The scan also showed prominent left upper lobe groundglass airspace disease. Given recent pneumonia, airspace disease on chest CT concerning for parapneumonic effusion. Diagnostic thoracentesis performed, chest tube placement patient has been receiving TPA dornase. Sputum growing Proteus, sensitive to levofloxacin and ceftriaxone. Pleural fluid cultures negative so far. Interval update: No Acute respiratory events overnight. Patient continued to remain on room air. Pigtail connected to suction, drained 200 so far. Repeat chest x-ray PA lateral on this morning showed improving effusion, still residual present. The right lower lobe airspace disease also appear to be improving. Complete the last dose of TPA dornase today. Cytopathology still pending. Pleural fluid studies consistent with exudative pleural effusion with fluid LDH of 960 and total protein of 4.4. Glucose of 24 consistent with empyema Plan: -Continue TPA dornase twice daily- received doses 5/6 -Follow with pleural fluid studies. Pleural fluid Gram stain no organisms seen so far. -Continue ceftriaxone and Azithromycin for community-acquired pneumonia, will change levofloxacin on discharge to complete a total of 7-day course. -DuoNebs every 6 hours as needed. #Thank for involving pulmonary in this patient care. We will continue to follow.
--- NOTE | 2021-05-14 09:20 | HMH.ACPN2 ---
Internal Medicine - PN: Subj *Date: 05/14/21 *Time: 08:05 Interval history: pt laying in bed chest tube at bedside, dressing c/d/i Exam Vital signs and Labs for Last 24 Hours: Temp Pulse Resp BP Pulse Ox 97.6 F 51 L 16 119/52 L 93 L 05/14/21 04:00 05/14/21 04:00 05/14/21 07:39 05/14/21 04:00 05/14/21 04:00 Laboratory Results - last 24 hr 05/11/21 15:30: Fluid Glucose 24, Fluid Total Protein 4.4, Fluid Albumin 2.8, Fluid LDH 960 05/14/21 07:11: WBC 7.8, RBC 3.92 L, Hgb 13.3 L, Hct 41.1 L, MCV 104.9 H, MCH 34.0 H, MCHC 32.4, RDW 14.0, Plt Count 396, MPV 9.1, Neut % (Auto) 80.6 H, Lymph % (Auto) 8.6 L, [place] % (Auto) 10.0 H, Eos % (Auto) 0.5, Baso % (Auto) 0.3, Neut # (Auto) 6.3, Lymph # (Auto) 0.7, [place] # (Auto) 0.8, Eos # (Auto) 0.0, Baso # (Auto) 0.0 05/14/21 07:11: Sodium 132 L, Potassium 4.2, Chloride 101, Carbon Dioxide 29, Anion Gap 6.2, BUN 30 H, Creatinine 0.80, Estimated Creat Clear 101, Estimated GFR 97, Est GFR ( Amer) 117, Glucose 96, Calcium 7.8 L I & O for Last 24 hours: Intake & Output 05/11/21 05/12/21 05/13/21 05/14/21 11:59 11:59 11:59 11:59 Intake Total 0 / 0 240 / 240 580 / 580 Output Total 2290 / 2290 1080 / 1080 550 / 550 Balance -2290 / -2290 -840 / -840 30 / 30 Weight 230 lb 215 lb 14.4 oz 218 lb 8 oz 214 lb Microbiology Reports for the Last 24 Hours: Microbiology 05/11/21 15:30 Pleural Fluid - Pleura Gram Stain - Final 05/11/21 15:30 Pleural Fluid - Pleura Body Fluid Culture - Preliminary NO GROWTH AFTER 48 HOURS 05/11/21 15:14 Nose - Nasal MRSA Culture - Final Negative 05/11/21 13:25 Sputum - Expectorated Sputum Gram Stain - Final 05/11/21 13:25 Sputum - Expectorated Sputum Sputum Culture - Final Proteus mirabilis - Constitutional no acute distress - *Routine HEENT Exam Head: Present: normocephalic Eye: Present: PERRL ENT: Present: mucous membranes moist - *Routine Neck Exam Present: supple. Absent: lymphadenopathy - *Routine Respiratory Exam Present: CTA bilaterally - *Routine Cardiovascular Exam Present: RRR - *Routine Abdominal Exam Present: soft, normoactive bowel sounds. Absent: tenderness - *Routine Extremities Exam Present: normal capillary refill. Absent: cyanosis, clubbing, edema - *Routine Skin Exam Present: warm. Absent: rash Comments: dressing c/d/i chest tube and drain in place - *Routine Neurological Exam Present: alert, oriented X3 Assessment and Plan (1) Parapneumonic effusion Status: Acute Category: Medical Code(s): J18.9 - Pneumonia, unspecified organism; J91.8 - Pleural effusion in other conditions classified elsewhere (2) Chest tube in place Status: Acute Category: Medical Code(s): Z96.89 - Presence of other specified functional implants (3) Right lower lobe pneumonia Status: Acute Qualifiers: Pneumonia type: due to unspecified organism Qualified Code(s): J18.9 - Pneumonia, unspecified organism Category: Medical Code(s): J18.9 - Pneumonia, unspecified organism (4) History of coronary artery disease Status: Acute Category: Medical Code(s): Z86.79 - Personal history of other diseases of the circulatory system (5) Hypertension Status: Chronic Qualifiers: Hypertension type: essential hypertension Category: Medical Code(s): I10 - Essential (primary) hypertension (6) Proteus infection Status: Acute Category: Medical Code(s): A49.8 - Other bacterial infections of unspecified site - Assessment and plan all Dx Assessment and Plan for all problems:: rounded with dr evans all orders per dr evans pulm consult surgery consult
--- NOTE | 2021-05-14 10:50 | PC.NURSE ---
0945-pt off floor to radiology at this time, vss, report given to wool fleece grader
--- NOTE | 2021-05-14 10:50 | PC.NURSE ---
1000-pt returned back to room, vss, pt stable
--- NOTE | 2021-05-14 14:20 | PC.NURSE ---
1341-pt's chest tube site dressing noted to be saturated in serosanginous to bloody drainage, saturated dressing removed at this time, pt's skin and area around dressing cleaned with damp dressing and then dried thoroughly, skin protectant barrier cream applied to surrounding areas of skin, additional xeroform dry 4x4s abd x2 and foam tape re-applied to site, pt kirsty well, no drainage noted to chest tube suction container from this morning, denies soa, chux and bed linens changed at this time as well r/t drainage from site, will continue to monitor
--- NOTE | 2021-05-14 17:16 | PC.NURSE ---
1655-pt's chest tube clamped at this time and flushed with 10 ml's normal saline, TPa was then administered and followed by Dornase medication as ordered per DR. Rain for last dose, chest tube flushed with additional 10ml's normal saline and remains clamped, will unclamp/hook to suction @ 1855 as ordered per MD. Pt has rested well t/o shift with no complaints of SOA, pt kirsty room air, ls cta-diminished to right base, chest tube site dressing changed this shift and noted to be c/d/i at this time, pt got up to chair today, pt voiding per urinal-dk yellow/clear urine, pt has not reported BM today-will continue to monitor closely, pt c/o intermittent pain to right chest/back area-being medicated as sched/needed per eMAR, pt's at bedside, vss, pt stable, will continue to monitor
--- NOTE | 2021-05-14 19:42 | PC.NURSE ---
1900-pt's chest tube unclamped at this time
[2021-05-15] VITALS: BP 142/50; PULSE 51; RESP 18; TEMP 36.7; O2SAT 94
[2021-05-15 04:00] VITALS: BP 124/52; PULSE 57; RESP 17; TEMP 36.8; O2SAT 96
[2021-05-15 05:00] VITALS: BMI 26.8
--- NOTE | 2021-05-15 06:57 | PC.NURSE ---
Patient has had 320ml out of SS fluid this RN's shift
[2021-05-15 07:49] LABS: Basophils % 0.4 % (0.1-2.0); Eosinophils # 0.1 K/mm3 (0.0-0.4); Lymphocytes # 0.8 K/mm3 (0.7-4.5); Red Blood Count 3.55 M/mm3 (4.60-6.20)
[2021-05-15 07:55] LABS: Anion Gap 7.2 mEq/L (5-15); Blood Urea Nitrogen 23 mg/dl (9-20); Calcium 7.6 mg/dl (8.4-10.2); Carbon Dioxide 27 mmol/L (22.0-30.0); Chloride 104 mmol/L (98-107); Creatinine Clearance Estimated 102 mL/min (50-200); Estimated Glomerular Filt Rate 113 ml/min (>60); GFR (African American) 137 ML/MIN (>60); Glucose 95 mg/dl (74-100); Potassium 4.2 mmoL/L (3.5-5.1); Sodium 134 mmol/L (136-145)
[2021-05-15 08:00] VITALS: BP 132/68; PULSE 54; RESP 18; TEMP 36.6; O2SAT 96; O2SAT 97
[2021-05-15 08:03] LABS: Eosinophils % 0.9 % (0.1-12.0); Hematocrit 37.8 % (42.0-52.0); Lymphocytes % 10.1 % (10-50); Mean Corpuscular HGB Conc 31.8 g/dL (31.8-35.4); Mean Corpuscular Hemoglobin 33.9 pg (27.0-31.2); Mean Corpuscular Volume 106.5 fl (80-94); Mean Platelet Volume 9.9 fl (7.4-10.4); Monocytes # 0.6 K/mm3 (0.1-1.0); Monocytes % 7.6 % (1.7-9.3); Neutrophils # 6.5 K/mm3 (1.8-7.8); Neutrophils % 81.1 % (37.0-80.0); Platelet Count 414 K/mm3 (142-424); Red Cell Distribution Width 13.8 % (11.5-17.5)
[2021-05-15 08:05] LABS: Hemoglobin 12.1 g/dL (14.1-18.0)
--- NOTE | 2021-05-15 08:29 | XR_ITS ---
FINAL REPORT TECHNIQUE: Chest PA & Lateral CLINICAL HISTORY: empyema COMPARISON: May 14, 2021 FINDINGS: 2 views of the chest were performed. There is a right large bore chest tube, unchanged. There is mild cardiomegaly. There are multiple sternotomy wires. The mediastinum is within normal limits. There is persistent airspace opacity and atelectasis in the right lung base. There is no pneumothorax. The bony thorax appears intact. IMPRESSION: Persistent airspace opacity and atelectasis in the right lung base with a large bore chest tube in place, no significant change from prior. Reviewed, Interpreted and Dictated by Deon Denney MD Transcribed by Caesar Reese Authenticated by Deon Denney MD on 05/15/2021 09:59:46 AM [facility]
--- NOTE | 2021-05-15 08:30 | HMH.PULMPN ---
Internal Medicine - PN: Subj *Date: 05/15/21 *Time: 10:45 Interval history: No acute respiratory events overnight. Exam - Constitutional Constitutional:: Present: no acute distress, comfortable - HENMT Exam HENMT: Present: normocephalic, atraumatic - Eye Exam Eyes:: Present: normal appearance both eyes and related structures - Neck Exam Neck:: Present: normal visual inspection - Respiratory Exam Respiratory:: Present: able to speak in complete sentences, no respiratory distress - Cardiovascular Exam Cardiac:: Present: S1, S2 - GI Exam GI:: Present: soft, no hepatosplenomegaly - Skin Exam Skin: Present: warm, no rash - Neurological Exam Neurological: Present: alert, awake - Extremities Exam Extremities: Present: no cyanosis, no clubbing, no edema - Psychiatric Exam Psychiatric: Present: normal affect Assessment and Plan (1) Parapneumonic effusion Status: Acute Category: Medical Code(s): J18.9 - Pneumonia, unspecified organism; J91.8 - Pleural effusion in other conditions classified elsewhere (2) Chest tube in place Status: Acute Category: Medical Code(s): Z96.89 - Presence of other specified functional implants (3) Right lower lobe pneumonia Status: Acute Qualifiers: Pneumonia type: due to unspecified organism Qualified Code(s): J18.9 - Pneumonia, unspecified organism Category: Medical Code(s): J18.9 - Pneumonia, unspecified organism (4) History of coronary artery disease Status: Acute Category: Medical Code(s): Z86.79 - Personal history of other diseases of the circulatory system (5) Hypertension Status: Chronic Qualifiers: Hypertension type: essential hypertension Category: Medical Code(s): I10 - Essential (primary) hypertension - Assessment and plan all Dx Assessment and Plan for all problems:: #Right-sided Empyema :: #Community-acquired pneumonia: 65-year-old current smoker greater than [id number] smoker is not any inhalers or oxygen at baseline, no prior respiratory complaints/ H/O CABG noted to have symptoms of worsening cough and productive phlegm and subjective fevers for the last 10 days that is not getting better and presented to the ER. Patient also complains of atypical chest pain on admission, cardiology consulted. Chest x-ray on admission showed right lower lobe infiltrates and follow-up CT chest WO showed right lower lobe dense consolidative airspace disease, adjacent atelectasis along with large right-sided pleural effusion. Patient also have a pocket of small loculated pleural effusion in the anterior part of the right lower lobe on the CAT scan. The scan also showed prominent left upper lobe groundglass airspace disease. Given recent pneumonia, airspace disease on chest CT concerning for parapneumonic effusion. Diagnostic thoracentesis performed, chest tube placement patient has been receiving TPA dornase. Sputum growing Proteus, sensitive to levofloxacin and ceftriaxone. Pleural fluid cultures negative so far. Pleural fluid studies consistent with exudative pleural effusion with fluid LDH of 960 and total protein of 4.4. Glucose of 24 consistent with empyema Interval update: No Acute respiratory events overnight. Patient continued to remain on room air. No significant drainage from the large bore chest tube. 200 cc from the pigtail in the last 24 hours, blocked, flushed this morning with continued output. Repeat chest x-ray did not significantly change from yesterday. Will require surgery to remove the large bore chest tube. Repeat chest x-ray from this morning, continued right lower lobe consolidation along with slight worsening of right-sided pleural effusion. We will continue the small bore chest tube to suction. -Completed TPA dornase Plan: -Request surgery to remove large-bore chest tube, continue small bore chest tube to suction. We will flush the small bore every 6 hours. -Follow with pleural fluid studies. Pleural fluid
--- NOTE | 2021-05-15 09:19 | HMH.ACPN2 ---
Internal Medicine - PN: Subj *Date: 05/15/21 *Time: 08:05 Interval history: pt states he feels 90% better Exam Vital signs and Labs for Last 24 Hours: Temp Pulse Resp BP Pulse Ox 97.9 F 54 L 18 132/68 97 05/15/21 08:00 05/15/21 08:00 05/15/21 08:00 05/15/21 08:00 05/15/21 08:00 Laboratory Results - last 24 hr 05/15/21 06:35: WBC 8.0, RBC 3.55 L, Hgb 12.1 L, Hct 37.8 L, MCV 106.5 H, MCH 33.9 H, MCHC 31.8, RDW 13.8, Plt Count 414, MPV 9.9, Neut % (Auto) 81.1 H, Lymph % (Auto) 10.1, [place] % (Auto) 7.6, Eos % (Auto) 0.9, Baso % (Auto) 0.4, Neut # (Auto) 6.5, Lymph # (Auto) 0.8, [place] # (Auto) 0.6, Eos # (Auto) 0.1, Baso # (Auto) 0.0 05/15/21 06:35: Sodium 134 L, Potassium 4.2, Chloride 104, Carbon Dioxide 27, Anion Gap 7.2, BUN 23 H, Creatinine 0.70, Estimated Creat Clear 102, Estimated GFR 113, Est GFR ( Amer) 137, Glucose 95, Calcium 7.6 L I & O for Last 24 hours: Intake & Output 05/12/21 05/13/21 05/14/21 05/15/21 11:59 11:59 11:59 11:59 Intake Total 0 / 0 240 / 240 1060 / 1060 840 / 840 Output Total 2290 / 2290 1080 / 1080 550 / 550 550 / 550 Balance -2290 / -2290 -840 / -840 510 / 510 290 / 290 Weight 215 lb 14.4 oz 218 lb 8 oz 214 lb 215 lb 12.8 oz Microbiology Reports for the Last 24 Hours: Microbiology 05/11/21 15:30 Pleural Fluid - Pleura Gram Stain - Final 05/11/21 15:30 Pleural Fluid - Pleura Body Fluid Culture - Preliminary NO GROWTH AFTER 72 HOURS 05/12/21 09:45 Sputum - Expectorated Sputum Gram Stain - Final 05/12/21 09:45 Sputum - Expectorated Sputum Sputum Culture - Preliminary - Constitutional no acute distress - *Routine HEENT Exam Head: Present: normocephalic Eye: Present: PERRL ENT: Present: mucous membranes moist - *Routine Neck Exam Present: supple. Absent: lymphadenopathy - *Routine Respiratory Exam Present: CTA bilaterally - *Routine Cardiovascular Exam Present: RRR - *Routine Abdominal Exam Present: soft, normoactive bowel sounds. Absent: tenderness - *Routine Extremities Exam Absent: cyanosis, clubbing, edema - *Routine Skin Exam Present: warm. Absent: rash Comments: chest tube and drain at bedside dressing c/d/i - *Routine Neurological Exam Present: alert, oriented X3 Assessment and Plan (1) Parapneumonic effusion Status: Acute Category: Medical Code(s): J18.9 - Pneumonia, unspecified organism; J91.8 - Pleural effusion in other conditions classified elsewhere (2) Chest tube in place Status: Acute Category: Medical Code(s): Z96.89 - Presence of other specified functional implants (3) Right lower lobe pneumonia Status: Acute Qualifiers: Pneumonia type: due to unspecified organism Qualified Code(s): J18.9 - Pneumonia, unspecified organism Category: Medical Code(s): J18.9 - Pneumonia, unspecified organism (4) History of coronary artery disease Status: Acute Category: Medical Code(s): Z86.79 - Personal history of other diseases of the circulatory system (5) Hypertension Status: Chronic Qualifiers: Hypertension type: essential hypertension Category: Medical Code(s): I10 - Essential (primary) hypertension - Assessment and plan all Dx Assessment and Plan for all problems:: rounded with dr soto all orders per dr soto pulm consult surgery consult continue chest tube and drain until ok by pulm
[2021-05-15 11:05] VITALS: BP 126/63; PULSE 58; RESP 18; TEMP 36.8; O2SAT 93
[2021-05-15 13:17] LABS: Hematocrit 38.5 % (42.0-52.0); Hemoglobin 12.4 g/dL (14.1-18.0)
--- NOTE | 2021-05-15 13:54 | HMH.ACPN ---
Internal Medicine - PN: Subj *Date: 05/15/21 *Time: 13:54 Exam Vital signs and Labs for Last 24 Hours: Temp Pulse Resp BP Pulse Ox 98.3 F 58 L 18 126/63 93 L 05/15/21 11:05 05/15/21 11:05 05/15/21 11:05 05/15/21 11:05 05/15/21 11:05 Laboratory Results - last 24 hr 05/15/21 06:35: WBC 8.0, RBC 3.55 L, Hgb 12.1 L, Hct 37.8 L, MCV 106.5 H, MCH 33.9 H, MCHC 31.8, RDW 13.8, Plt Count 414, MPV 9.9, Neut % (Auto) 81.1 H, Lymph % (Auto) 10.1, [place] % (Auto) 7.6, Eos % (Auto) 0.9, Baso % (Auto) 0.4, Neut # (Auto) 6.5, Lymph # (Auto) 0.8, [place] # (Auto) 0.6, Eos # (Auto) 0.1, Baso # (Auto) 0.0 05/15/21 06:35: Sodium 134 L, Potassium 4.2, Chloride 104, Carbon Dioxide 27, Anion Gap 7.2, BUN 23 H, Creatinine 0.70, Estimated Creat Clear 102, Estimated GFR 113, Est GFR ( Amer) 137, Glucose 95, Calcium 7.6 L 05/15/21 13:04: Hgb 12.4 L, Hct 38.5 L I & O for Last 24 hours: Intake & Output 05/12/21 05/13/21 05/14/21 05/15/21 23:59 23:59 23:59 23:59 Intake Total 820 / 820 1080 / 1080 480 / 480 Output Total 1770 / 1770 500 / 750 525 / 700 275 / 275 Balance -1770 / -1770 320 / 70 555 / 380 205 / 205 Weight 97.93 kg 99.11 kg 97.069 kg 97.885 kg Microbiology Reports for the Last 24 Hours: Microbiology 05/12/21 09:45 Sputum - Expectorated Sputum Gram Stain - Final 05/12/21 09:45 Sputum - Expectorated Sputum Sputum Culture - Preliminary 05/11/21 15:30 Pleural Fluid - Pleura Gram Stain - Final 05/11/21 15:30 Pleural Fluid - Pleura Body Fluid Culture - Preliminary NO GROWTH AFTER 72 HOURS Assessment and Plan (1) Parapneumonic effusion Status: Acute Category: Medical Code(s): J18.9 - Pneumonia, unspecified organism; J91.8 - Pleural effusion in other conditions classified elsewhere (2) Chest tube in place Status: Acute Category: Medical Code(s): Z96.89 - Presence of other specified functional implants (3) Right lower lobe pneumonia Status: Acute Qualifiers: Pneumonia type: due to unspecified organism Qualified Code(s): J18.9 - Pneumonia, unspecified organism Category: Medical Code(s): J18.9 - Pneumonia, unspecified organism (4) History of coronary artery disease Status: Acute Category: Medical Code(s): Z86.79 - Personal history of other diseases of the circulatory system (5) Hypertension Status: Chronic Qualifiers: Hypertension type: essential hypertension Category: Medical Code(s): I10 - Essential (primary) hypertension The patient's infection will respond to the chosen ABx?: Yes Is the patient receiving the right drug, dose, and route?: Yes Could a more targeted ABx be ordered?: No (PROTEUS +, SENSITIVE TO ROCEPHIN.)
[2021-05-15 15:14] VITALS: BP 146/63; PULSE 58; RESP 17; TEMP 36.6; O2SAT 95
--- NOTE | 2021-05-15 15:45 | HMH.GSPN ---
Subjective Patient reports: no new complaints Narrative: Has had some significant bloody drainage from the small pleural catheter and some drainage around the chest tube site. Progress Note: A&P (1) Parapneumonic effusion Status: Acute (2) Chest tube in place Status: Acute (3) Right lower lobe pneumonia Status: Acute (4) History of coronary artery disease Status: Acute (5) Hypertension Status: Chronic Assessment and Plan for All Diagnoses:: Chest tube removed at bedside. Exam Vital signs and Labs for Last 24 Hours: Temp Pulse Resp BP Pulse Ox 97.8 F 58 L 17 146/63 H 95 05/15/21 15:14 05/15/21 15:14 05/15/21 15:14 05/15/21 15:14 05/15/21 15:14 Laboratory Results - last 24 hr 05/15/21 06:35: WBC 8.0, RBC 3.55 L, Hgb 12.1 L, Hct 37.8 L, MCV 106.5 H, MCH 33.9 H, MCHC 31.8, RDW 13.8, Plt Count 414, MPV 9.9, Neut % (Auto) 81.1 H, Lymph % (Auto) 10.1, [place] % (Auto) 7.6, Eos % (Auto) 0.9, Baso % (Auto) 0.4, Neut # (Auto) 6.5, Lymph # (Auto) 0.8, [place] # (Auto) 0.6, Eos # (Auto) 0.1, Baso # (Auto) 0.0 05/15/21 06:35: Sodium 134 L, Potassium 4.2, Chloride 104, Carbon Dioxide 27, Anion Gap 7.2, BUN 23 H, Creatinine 0.70, Estimated Creat Clear 102, Estimated GFR 113, Est GFR ( Amer) 137, Glucose 95, Calcium 7.6 L 05/15/21 13:04: Hgb 12.4 L, Hct 38.5 L I & O for Last 24 hours: Intake & Output 05/13/21 05/14/21 05/15/21 05/16/21 11:59 11:59 11:59 11:59 Intake Total 240 / 240 1060 / 1060 840 / 840 240 / 240 Output Total 1080 / 1080 550 / 550 550 / 550 250 / 250 Balance -840 / -840 510 / 510 290 / 290 -10 / -10 Weight 218 lb 8 oz 214 lb 215 lb 12.8 oz Microbiology Reports for the Last 24 Hours: Microbiology 05/12/21 09:45 Sputum - Expectorated Sputum Gram Stain - Final 05/12/21 09:45 Sputum - Expectorated Sputum Sputum Culture - Preliminary 05/11/21 15:30 Pleural Fluid - Pleura Gram Stain - Final 05/11/21 15:30 Pleural Fluid - Pleura Body Fluid Culture - Preliminary NO GROWTH AFTER 72 HOURS - *Routine Respiratory Exam Comments: Moderate hematoma at chest tube site with some serosanguineous drainage
[2021-05-15 20:00] VITALS: BP 149/62; PULSE 50; RESP 16; TEMP 36.5; O2SAT 94
[2021-05-16] VITALS (7 sets, daily range): BP systolic 104–143; BP diastolic 42–84; PULSE 46–60; RESP 15–18; TEMP 36.3–37.4; O2SAT 94–97; BMI 26.2
--- NOTE | 2021-05-16 05:04 | PC.NURSE ---
Patient's dsg was changed in sterile fashion.
[2021-05-16 08:31] LABS: Basophils % 0.2 % (0.1-2.0); Eosinophils # 0.1 K/mm3 (0.0-0.4); Eosinophils % 0.9 % (0.1-12.0); Hematocrit 36.5 % (42.0-52.0); Hemoglobin 11.5 g/dL (14.1-18.0); Lymphocytes # 0.9 K/mm3 (0.7-4.5); Lymphocytes % 8.7 % (10-50); Mean Corpuscular HGB Conc 31.5 g/dL (31.8-35.4); Mean Corpuscular Hemoglobin 33.8 pg (27.0-31.2); Mean Corpuscular Volume 107.3 fl (80-94); Mean Platelet Volume 8.9 fl (7.4-10.4); Monocytes # 0.8 K/mm3 (0.1-1.0); Monocytes % 7.8 % (1.7-9.3); Neutrophils # 8.2 K/mm3 (1.8-7.8); Neutrophils % 82.4 % (37.0-80.0); Platelet Count 416 K/mm3 (142-424); Red Cell Distribution Width 14.1 % (11.5-17.5); White Blood Count 9.9 K/mm3 (4.8-10.8)
[2021-05-16 08:42] LABS: Anion Gap 7.9 mEq/L (5-15); Blood Urea Nitrogen 21 mg/dl (9-20); Calcium 7.7 mg/dl (8.4-10.2); Carbon Dioxide 26 mmol/L (22.0-30.0); Chloride 104 mmol/L (98-107); Creatinine Clearance Estimated 100 mL/min (50-200); Estimated Glomerular Filt Rate 97 ml/min (>60); GFR (African American) 117 ML/MIN (>60); Glucose 115 mg/dl (74-100); Potassium 3.9 mmoL/L (3.5-5.1); Sodium 134 mmol/L (136-145)
--- NOTE | 2021-05-16 09:01 | HMH.ACPN2 ---
Internal Medicine - PN: Subj *Date: 05/16/21 *Time: 21:54 Interval history: doing better - large chest tube removed - labs ok Exam Vital signs and Labs for Last 24 Hours: Temp Pulse Resp BP Pulse Ox 97.7 F 46 L 18 137/61 97 05/16/21 07:34 05/16/21 07:34 05/16/21 07:34 05/16/21 07:34 05/16/21 08:00 Laboratory Results - last 24 hr 05/15/21 13:04: Hgb 12.4 L, Hct 38.5 L 05/16/21 07:18: WBC 9.9, RBC 3.40 L, Hgb 11.5 L, Hct 36.5 L, MCV 107.3 H, MCH 33.8 H, MCHC 31.5 L, RDW 14.1, Plt Count 416, MPV 8.9, Neut % (Auto) 82.4 H, Lymph % (Auto) 8.7 L, [place] % (Auto) 7.8, Eos % (Auto) 0.9, Baso % (Auto) 0.2, Neut # (Auto) 8.2 H, Lymph # (Auto) 0.9, [place] # (Auto) 0.8, Eos # (Auto) 0.1, Baso # (Auto) 0.0 05/16/21 07:18: Sodium 134 L, Potassium 3.9, Chloride 104, Carbon Dioxide 26, Anion Gap 7.9, BUN 21 H, Creatinine 0.80, Estimated Creat Clear 100, Estimated GFR 97, Est GFR ( Amer) 117, Glucose 115 H, Calcium 7.7 L I & O for Last 24 hours: Intake & Output 05/13/21 05/14/21 05/15/21 05/16/21 11:59 11:59 11:59 11:59 Intake Total 240 / 240 1060 / 1060 840 / 840 1080 / 1080 Output Total 1080 / 1080 550 / 550 550 / 550 425 / 425 Balance -840 / -840 510 / 510 290 / 290 655 / 655 Weight 218 lb 8 oz 214 lb 215 lb 12.8 oz 211 lb 6 oz Microbiology Reports for the Last 24 Hours: Microbiology 05/11/21 15:30 Pleural Fluid - Pleura Gram Stain - Final 05/11/21 15:30 Pleural Fluid - Pleura Body Fluid Culture - Final No growth. 05/12/21 09:45 Sputum - Expectorated Sputum Gram Stain - Final 05/12/21 09:45 Sputum - Expectorated Sputum Sputum Culture - Preliminary - Constitutional no acute distress - *Routine HEENT Exam Head: Present: normocephalic Eye: Present: EOMI, PERRL ENT: Present: mucous membranes dry - *Routine Neck Exam Absent: JVD - *Routine Respiratory Exam Present: decreased breath sounds - *Routine Cardiovascular Exam Present: RRR, murmur. Absent: rubs - *Routine Abdominal Exam Present: soft - *Routine Extremities Exam Absent: calf tenderness - *Routine Skin Exam Present: intact - *Routine Neurological Exam Present: alert, CN II-XII intact - Routine Psychiatric Exam Present: normal affect Assessment and Plan (1) Parapneumonic effusion Status: Acute Category: Medical Code(s): J18.9 - Pneumonia, unspecified organism; J91.8 - Pleural effusion in other conditions classified elsewhere (2) Chest tube in place Status: Acute Category: Medical Code(s): Z96.89 - Presence of other specified functional implants (3) Right lower lobe pneumonia Status: Acute Qualifiers: Pneumonia type: due to unspecified organism Qualified Code(s): J18.9 - Pneumonia, unspecified organism Category: Medical Code(s): J18.9 - Pneumonia, unspecified organism (4) History of coronary artery disease Status: Acute Category: Medical Code(s): Z86.79 - Personal history of other diseases of the circulatory system (5) Hypertension Status: Chronic Qualifiers: Hypertension type: essential hypertension Category: Medical Code(s): I10 - Essential (primary) hypertension
--- NOTE | 2021-05-16 09:26 | HMH.GSPN ---
Subjective Patient reports: no new complaints Progress Note: A&P (1) Parapneumonic effusion Status: Acute (2) Chest tube in place Status: Acute Assessment and plan: Large bore thoracostomy tube removed yesterday. Pigtail catheter remains in place (managed per the pulmonology service). Continue dressing changes as needed (3) Right lower lobe pneumonia Status: Acute (4) History of coronary artery disease Status: Acute (5) Hypertension Status: Chronic Exam Vital signs and Labs for Last 24 Hours: Temp Pulse Resp BP Pulse Ox 97.7 F 46 L 18 137/61 97 05/16/21 07:34 05/16/21 07:34 05/16/21 07:34 05/16/21 07:34 05/16/21 08:00 Laboratory Results - last 24 hr 05/15/21 13:04: Hgb 12.4 L, Hct 38.5 L 05/16/21 07:18: WBC 9.9, RBC 3.40 L, Hgb 11.5 L, Hct 36.5 L, MCV 107.3 H, MCH 33.8 H, MCHC 31.5 L, RDW 14.1, Plt Count 416, MPV 8.9, Neut % (Auto) 82.4 H, Lymph % (Auto) 8.7 L, [place] % (Auto) 7.8, Eos % (Auto) 0.9, Baso % (Auto) 0.2, Neut # (Auto) 8.2 H, Lymph # (Auto) 0.9, [place] # (Auto) 0.8, Eos # (Auto) 0.1, Baso # (Auto) 0.0 05/16/21 07:18: Sodium 134 L, Potassium 3.9, Chloride 104, Carbon Dioxide 26, Anion Gap 7.9, BUN 21 H, Creatinine 0.80, Estimated Creat Clear 100, Estimated GFR 97, Est GFR ( Amer) 117, Glucose 115 H, Calcium 7.7 L I & O for Last 24 hours: Intake & Output 05/13/21 05/14/21 05/15/21 05/16/21 11:59 11:59 11:59 11:59 Intake Total 240 / 240 1060 / 1060 840 / 840 1080 / 1080 Output Total 1080 / 1080 550 / 550 550 / 550 425 / 425 Balance -840 / -840 510 / 510 290 / 290 655 / 655 Weight 218 lb 8 oz 214 lb 215 lb 12.8 oz 211 lb 6 oz Microbiology Reports for the Last 24 Hours: Microbiology 05/11/21 15:30 Pleural Fluid - Pleura Gram Stain - Final 05/11/21 15:30 Pleural Fluid - Pleura Body Fluid Culture - Final No growth. 05/12/21 09:45 Sputum - Expectorated Sputum Gram Stain - Final 05/12/21 09:45 Sputum - Expectorated Sputum Sputum Culture - Preliminary Narrative: Large bore thoracostomy tube removed yesterday. Pigtail remains in place. - Constitutional no acute distress - Routine Chest/Breast/Axilla Exam Comments: Dressing on chest tube removal site with serosanguineous drainage. No erythema. - *Routine Respiratory Exam Absent: respiratory distress - *Routine Cardiovascular Exam Present: bradycardia
[2021-05-17] VITALS: BP 153/60; PULSE 50; RESP 20; TEMP 36.7; O2SAT 97
[2021-05-17 03:51] VITALS: BP 148/67; PULSE 48; RESP 18; TEMP 37.1; O2SAT 94
[2021-05-17 05:00] VITALS: BMI 259.3
[2021-05-17 07:54] VITALS: BP 157/54; PULSE 54; RESP 17; TEMP 36.7; O2SAT 97
[2021-05-17 08:25] LABS: Basophils % 0.3 % (0.1-2.0); Eosinophils # 0.1 K/mm3 (0.0-0.4); Eosinophils % 1.2 % (0.1-12.0); Hemoglobin 11.8 g/dL (14.1-18.0); Lymphocytes # 0.9 K/mm3 (0.7-4.5); Lymphocytes % 11.8 % (10-50); Mean Corpuscular HGB Conc 31.8 g/dL (31.8-35.4); Mean Corpuscular Hemoglobin 34.4 pg (27.0-31.2); Mean Corpuscular Volume 108.1 fl (80-94); Mean Platelet Volume 9.6 fl (7.4-10.4); Monocytes # 0.5 K/mm3 (0.1-1.0); Monocytes % 7.2 % (1.7-9.3); Neutrophils % 79.5 % (37.0-80.0); Platelet Count 429 K/mm3 (142-424); Red Blood Count 3.42 M/mm3 (4.60-6.20); Red Cell Distribution Width 13.8 % (11.5-17.5); White Blood Count 7.6 K/mm3 (4.8-10.8)
[2021-05-17 08:54] LABS: Chloride 107 mmol/L (98-107); Sodium 136 mmol/L (136-145)
[2021-05-17 08:55] LABS: Potassium 4.2 mmoL/L (3.5-5.1)
[2021-05-17 08:57] LABS: Blood Urea Nitrogen 22 mg/dl (9-20); Estimated Glomerular Filt Rate 113 ml/min (>60); GFR (African American) 137 ML/MIN (>60)
[2021-05-17 08:58] LABS: Anion Gap 7.2 mEq/L (5-15); Calcium 7.4 mg/dl (8.4-10.2); Carbon Dioxide 26 mmol/L (22.0-30.0); Glucose 92 mg/dl (74-100)
--- NOTE | 2021-05-17 10:01 | HMH.GSPN ---
Subjective Patient reports: no new complaints Progress Note: A&P (1) Parapneumonic effusion Status: Acute (2) Chest tube in place Status: Acute Assessment and plan: Larger thoracostomy tube removed. Pigtail catheter in place as per the pulmonology service remains in position. Management of remaining catheter as per the pulmonology service. (3) Right lower lobe pneumonia Status: Acute (4) History of coronary artery disease Status: Acute (5) Hypertension Status: Chronic Exam Vital signs and Labs for Last 24 Hours: Temp Pulse Resp BP Pulse Ox 98.1 F 54 L 17 157/54 H 97 05/17/21 07:54 05/17/21 07:54 05/17/21 07:54 05/17/21 07:54 05/17/21 07:54 Laboratory Results - last 24 hr 05/17/21 06:11: WBC 7.6, RBC 3.42 L, Hgb 11.8 L, Hct 37.0 L, MCV 108.1 H, MCH 34.4 H, MCHC 31.8, RDW 13.8, Plt Count 429 H, MPV 9.6, Neut % (Auto) 79.5, Lymph % (Auto) 11.8, [facility] % (Auto) 7.2, Eos % (Auto) 1.2, Baso % (Auto) 0.3, Neut # (Auto) 6.0, Lymph # (Auto) 0.9, [facility] # (Auto) 0.5, Eos # (Auto) 0.1, Baso # (Auto) 0.0 05/17/21 06:11: Sodium 136, Potassium 4.2, Chloride 107, Carbon Dioxide 26, Anion Gap 7.2, BUN 22 H, Creatinine 0.70, Estimated GFR 113, Est GFR ( Amer) 137, Glucose 92, Calcium 7.4 L I & O for Last 24 hours: Intake & Output 05/14/21 05/15/21 05/16/21 05/17/21 11:59 11:59 11:59 11:59 Intake Total 1060 / 1060 840 / 840 1080 / 1080 720 / 720 Output Total 550 / 550 550 / 550 425 / 425 700 / 700 Balance 510 / 510 290 / 290 655 / 655 Weight 214 lb 215 lb 12.8 oz 211 lb 6 oz 193 lb 12.8 oz Microbiology Reports for the Last 24 Hours: Microbiology 05/12/21 09:45 Sputum - Expectorated Sputum Gram Stain - Final 05/12/21 09:45 Sputum - Expectorated Sputum Sputum Culture - Final Staphylococcus epidermidis 05/11/21 15:30 Pleural Fluid - Pleura Gram Stain - Final 05/11/21 15:30 Pleural Fluid - Pleura Body Fluid Culture - Final No growth. - Constitutional no acute distress - Routine Chest/Breast/Axilla Exam Comments: Dressing in place. Currently with minimal drainage noted. No spreading cellulitis. - *Routine Respiratory Exam Absent: respiratory distress - *Routine Cardiovascular Exam Present: bradycardia
--- NOTE | 2021-05-17 10:09 | HMH.ACPN2 ---
Internal Medicine - PN: Subj *Date: 05/17/21 *Time: 10:09 Interval history: doing ok - has pig tail - labs stable Exam Vital signs and Labs for Last 24 Hours: Temp Pulse Resp BP Pulse Ox 98.1 F 54 L 17 157/54 H 97 05/17/21 07:54 05/17/21 07:54 05/17/21 07:54 05/17/21 07:54 05/17/21 07:54 Laboratory Results - last 24 hr 05/17/21 06:11: WBC 7.6, RBC 3.42 L, Hgb 11.8 L, Hct 37.0 L, MCV 108.1 H, MCH 34.4 H, MCHC 31.8, RDW 13.8, Plt Count 429 H, MPV 9.6, Neut % (Auto) 79.5, Lymph % (Auto) 11.8, [place] % (Auto) 7.2, Eos % (Auto) 1.2, Baso % (Auto) 0.3, Neut # (Auto) 6.0, Lymph # (Auto) 0.9, [place] # (Auto) 0.5, Eos # (Auto) 0.1, Baso # (Auto) 0.0 05/17/21 06:11: Sodium 136, Potassium 4.2, Chloride 107, Carbon Dioxide 26, Anion Gap 7.2, BUN 22 H, Creatinine 0.70, Estimated GFR 113, Est GFR ( Amer) 137, Glucose 92, Calcium 7.4 L I & O for Last 24 hours: Intake & Output 05/14/21 05/15/21 05/16/21 05/17/21 11:59 11:59 11:59 11:59 Intake Total 1060 / 1060 840 / 840 1080 / 1080 720 / 720 Output Total 550 / 550 550 / 550 425 / 425 700 / 700 Balance 510 / 510 290 / 290 655 / 655 Weight 214 lb 215 lb 12.8 oz 211 lb 6 oz 193 lb 12.8 oz Microbiology Reports for the Last 24 Hours: Microbiology 05/12/21 09:45 Sputum - Expectorated Sputum Gram Stain - Final 05/12/21 09:45 Sputum - Expectorated Sputum Sputum Culture - Final Staphylococcus epidermidis 05/11/21 15:30 Pleural Fluid - Pleura Gram Stain - Final 05/11/21 15:30 Pleural Fluid - Pleura Body Fluid Culture - Final No growth. - Constitutional no acute distress - *Routine HEENT Exam Head: Present: normocephalic Eye: Present: EOMI, PERRL ENT: Present: mucous membranes moist - *Routine Neck Exam Absent: JVD - *Routine Respiratory Exam Present: decreased breath sounds, other (has pig tail) - *Routine Cardiovascular Exam Present: RRR - *Routine Abdominal Exam Present: soft - *Routine Extremities Exam Absent: calf tenderness - *Routine Skin Exam Present: intact - *Routine Neurological Exam Present: alert, CN II-XII intact - Routine Psychiatric Exam Present: cooperative Assessment and Plan (1) Parapneumonic effusion Status: Acute Category: Medical Code(s): J18.9 - Pneumonia, unspecified organism; J91.8 - Pleural effusion in other conditions classified elsewhere (2) Chest tube in place Status: Acute Category: Medical Code(s): Z96.89 - Presence of other specified functional implants (3) Right lower lobe pneumonia Status: Acute Qualifiers: Pneumonia type: due to unspecified organism Qualified Code(s): J18.9 - Pneumonia, unspecified organism Category: Medical Code(s): J18.9 - Pneumonia, unspecified organism (4) History of coronary artery disease Status: Acute Category: Medical Code(s): Z86.79 - Personal history of other diseases of the circulatory system (5) Hypertension Status: Chronic Qualifiers: Hypertension type: essential hypertension Category: Medical Code(s): I10 - Essential (primary) hypertension (6) Proteus mirabilis pneumonia Status: Acute Category: Medical Code(s): J15.6 - Pneumonia due to other Gram-negative bacteria
--- NOTE | 2021-05-17 10:14 | XR_ITS ---
PROCEDURE INFORMATION: Exam: XR Chest Exam date and time: 05/17/2021 10:52 AM Age: 65 years old Clinical indication: Shortness of breath; Additional info: SOB TECHNIQUE: Imaging protocol: XR of the chest. Views: 1 view. COMPARISON: CR XR CHEST 2V 05/15/2021 9:22 AM FINDINGS: Tubes, catheters and devices: Right pigtail chest tube is in place. Lungs: Mildly improved right basilar airspace opacities. Pleural spaces: Trace right pleural effusion. No discernible pneumothorax. Heart/Mediastinum: Changes of prior CABG. Vasculature: Stent projects in the region of the right brachiocephalic vasculature. Bones/joints: Unremarkable. IMPRESSION: 1. Mildly improved right basilar airspace opacities. 2. Similar trace right pleural effusion. No discernible pneumothorax. Right pigtail chest tube remains in place.
[2021-05-17 11:14] VITALS: BP 159/62; PULSE 48; RESP 18; TEMP 36.5; O2SAT 95; BMI 26.2
[2021-05-17 15:01] VITALS: BP 151/55; PULSE 47; RESP 18; TEMP 36.6; O2SAT 95
--- NOTE | 2021-05-17 15:55 | PC.NURSE ---
Courtesy round done. Trash taken out. ICE and water given
[2021-05-17 20:00] VITALS: BP 160/55; PULSE 47; RESP 15; TEMP 36.9; O2SAT 98
[2021-05-18] VITALS: BP 155/67; PULSE 45; RESP 15; TEMP 36.6; O2SAT 96
[2021-05-18 04:00] VITALS: BP 148/59; PULSE 50; RESP 16; TEMP 36.6; O2SAT 96
[2021-05-18 05:00] VITALS: BMI 33.2
[2021-05-18 06:22] LABS: Basophils % 0.5 % (0.1-2.0); Eosinophils # 0.1 K/mm3 (0.0-0.4); Eosinophils % 1.9 % (0.1-12.0); Hematocrit 37.4 % (42.0-52.0); Hemoglobin 12.1 g/dL (14.1-18.0); Lymphocytes # 0.8 K/mm3 (0.7-4.5); Lymphocytes % 13.7 % (10-50); Mean Corpuscular HGB Conc 32.2 g/dL (31.8-35.4); Mean Corpuscular Hemoglobin 33.9 pg (27.0-31.2); Mean Corpuscular Volume 105.2 fl (80-94); Mean Platelet Volume 8.2 fl (7.4-10.4); Monocytes # 0.4 K/mm3 (0.1-1.0); Neutrophils # 4.5 K/mm3 (1.8-7.8); Neutrophils % 76.9 % (37.0-80.0); Platelet Count 479 K/mm3 (142-424); Red Blood Count 3.56 M/mm3 (4.60-6.20); Red Cell Distribution Width 13.7 % (11.5-17.5); White Blood Count 5.8 K/mm3 (4.8-10.8)
[2021-05-18 06:38] LABS: Anion Gap 6.6 mEq/L (5-15); Blood Urea Nitrogen 13 mg/dl (9-20); Calcium 7.9 mg/dl (8.4-10.2); Carbon Dioxide 27 mmol/L (22.0-30.0); Chloride 107 mmol/L (98-107); Creatinine Clearance Estimated 126 mL/min (50-200); Estimated Glomerular Filt Rate 135 ml/min (>60); GFR (African American) 164 ML/MIN (>60); Glucose 96 mg/dl (74-100); Potassium 4.6 mmoL/L (3.5-5.1); Sodium 136 mmol/L (136-145)
[2021-05-18 08:00] VITALS: BP 179/76; PULSE 48; RESP 18; TEMP 36.7; O2SAT 96
--- NOTE | 2021-05-18 08:58 | HMH.ACPN2 ---
Internal Medicine - PN: Subj *Date: 05/18/21 *Time: 08:10 Interval history: pt sitting up in bed drain at bedside Exam Vital signs and Labs for Last 24 Hours: Temp Pulse Resp BP Pulse Ox 97.9 F 50 L 16 148/59 H 96 05/18/21 04:00 05/18/21 04:00 05/18/21 04:00 05/18/21 04:00 05/18/21 04:00 Laboratory Results - last 24 hr 05/17/21 06:11: Sodium 136, Potassium 4.2, Chloride 107, Carbon Dioxide 26, Anion Gap 7.2, BUN 22 H, Creatinine 0.70, Estimated GFR 113, Est GFR ( Amer) 137, Glucose 92, Calcium 7.4 L 05/18/21 06:10: WBC 5.8, RBC 3.56 L, Hgb 12.1 L, Hct 37.4 L, MCV 105.2 H, MCH 33.9 H, MCHC 32.2, RDW 13.7, Plt Count 479 H, MPV 8.2, Neut % (Auto) 76.9, Lymph % (Auto) 13.7, [place] % (Auto) 7.0, Eos % (Auto) 1.9, Baso % (Auto) 0.5, Neut # (Auto) 4.5, Lymph # (Auto) 0.8, [place] # (Auto) 0.4, Eos # (Auto) 0.1, Baso # (Auto) 0.0 05/18/21 06:10: Sodium 136, Potassium 4.6, Chloride 107, Carbon Dioxide 27, Anion Gap 6.6, BUN 13 D, Creatinine 0.60 L, Estimated Creat Clear 126, Estimated GFR 135, Est GFR ( Amer) 164, Glucose 96, Calcium 7.9 L I & O for Last 24 hours: Intake & Output 05/15/21 05/16/21 05/17/21 05/18/21 11:59 11:59 11:59 11:59 Intake Total 840 / 840 1080 / 1080 720 / 720 360 / 360 Output Total 550 / 550 425 / 425 700 / 700 2900 / 2900 Balance 290 / 290 655 / 655 20 / 20 -2540 / -2540 Weight 215 lb 12.8 oz 211 lb 6 oz 210 lb 3 oz 267 lb Microbiology Reports for the Last 24 Hours: Microbiology 05/12/21 09:45 Sputum - Expectorated Sputum Gram Stain - Final 05/12/21 09:45 Sputum - Expectorated Sputum Sputum Culture - Final Staphylococcus epidermidis - Constitutional no acute distress - *Routine HEENT Exam Head: Present: normocephalic Eye: Present: PERRL ENT: Present: mucous membranes moist - *Routine Neck Exam Present: supple. Absent: lymphadenopathy - *Routine Respiratory Exam Present: CTA bilaterally - *Routine Cardiovascular Exam Present: RRR - *Routine Abdominal Exam Present: soft, normoactive bowel sounds. Absent: tenderness - *Routine Extremities Exam Absent: cyanosis, clubbing, edema - *Routine Skin Exam Present: warm. Absent: rash Comments: drain in place and draining at bedside - *Routine Neurological Exam Present: alert, oriented X3 Assessment and Plan (1) Parapneumonic effusion Status: Acute Category: Medical Code(s): J18.9 - Pneumonia, unspecified organism; J91.8 - Pleural effusion in other conditions classified elsewhere (2) Chest tube in place Status: Acute Category: Medical Code(s): Z96.89 - Presence of other specified functional implants (3) Right lower lobe pneumonia Status: Acute Qualifiers: Pneumonia type: due to unspecified organism Qualified Code(s): J18.9 - Pneumonia, unspecified organism Category: Medical Code(s): J18.9 - Pneumonia, unspecified organism (4) History of coronary artery disease Status: Acute Category: Medical Code(s): Z86.79 - Personal history of other diseases of the circulatory system (5) Hypertension Status: Chronic Qualifiers: Hypertension type: essential hypertension Category: Medical Code(s): I10 - Essential (primary) hypertension (6) Proteus mirabilis pneumonia Status: Acute Category: Medical Code(s): J15.6 - Pneumonia due to other Gram-negative bacteria - Assessment and plan all Dx Assessment and Plan for all problems:: rounded with dr soto all orders per dr soto pulm consult
--- NOTE | 2021-05-18 09:20 | XR_ITS ---
FINAL REPORT CLINICAL HISTORY: effusion COMPARISON: May 17, 2021; May 14, 2021 FINDINGS: A right pleural catheter remains in place. The heart size is normal. There is evidence of median sternotomy. There is mild bibasilar atelectasis. There is partially improved aeration of the right lung base. There is a small right pleural effusion. There is no definite pneumothorax. There is no osseous abnormality. IMPRESSION: Right pleural catheter in place without definite pneumothorax. Mild bibasilar atelectasis with partially improved aeration of the right lung base. Small right pleural effusion. Reviewed, Interpreted and Dictated by Rajesh Mary III, MD Transcribed by Caesar Reese Authenticated by Rajesh Mary III, MD on 05/18/2021 10:40:47 AM [facility]
--- NOTE | 2021-05-18 09:25 | HMH.PULMPN ---
Internal Medicine - PN: Subj *Date: 05/18/21 *Time: 13:59 Interval history: No acute respiratory vents over the weekend. Exam - Constitutional Constitutional:: Present: no acute distress, comfortable - HENMT Exam HENMT: Present: normocephalic, atraumatic - Eye Exam Eyes:: Present: normal appearance both eyes and related structures - Neck Exam Neck:: Present: normal visual inspection - Respiratory Exam Respiratory:: Present: able to speak in complete sentences, no respiratory distress - Cardiovascular Exam Cardiac:: Present: S1, S2 - GI Exam GI:: Present: soft - Skin Exam Skin: Present: warm, no rash - Neurological Exam Neurological: Present: alert, awake, normal cognition - Extremities Exam Extremities: Present: no cyanosis, no clubbing, no edema Assessment and Plan (1) Parapneumonic effusion Status: Acute Category: Medical Code(s): J18.9 - Pneumonia, unspecified organism; J91.8 - Pleural effusion in other conditions classified elsewhere (2) Chest tube in place Status: Acute Category: Medical Code(s): Z96.89 - Presence of other specified functional implants (3) Right lower lobe pneumonia Status: Acute Qualifiers: Pneumonia type: due to unspecified organism Qualified Code(s): J18.9 - Pneumonia, unspecified organism Category: Medical Code(s): J18.9 - Pneumonia, unspecified organism (4) History of coronary artery disease Status: Acute Category: Medical Code(s): Z86.79 - Personal history of other diseases of the circulatory system (5) Hypertension Status: Chronic Qualifiers: Hypertension type: essential hypertension Category: Medical Code(s): I10 - Essential (primary) hypertension (6) Proteus mirabilis pneumonia Status: Acute Category: Medical Code(s): J15.6 - Pneumonia due to other Gram-negative bacteria - Assessment and plan all Dx Assessment and Plan for all problems:: #Right-sided Empyema :: #Community-acquired pneumonia: 65-year-old current smoker greater than [id number] smoker is not any inhalers or oxygen at baseline, no prior respiratory complaints/ H/O CABG noted to have symptoms of worsening cough and productive phlegm and subjective fevers for the last 10 days that is not getting better and presented to the ER. Patient also complains of atypical chest pain on admission, cardiology consulted. Chest x-ray on admission showed right lower lobe infiltrates and follow-up CT chest WO showed right lower lobe dense consolidative airspace disease, adjacent atelectasis along with large right-sided pleural effusion. Patient also have a pocket of small loculated pleural effusion in the anterior part of the right lower lobe on the CAT scan. The scan also showed prominent left upper lobe groundglass airspace disease. Given recent pneumonia, airspace disease on chest CT concerning for parapneumonic effusion. Diagnostic thoracentesis performed, chest tube placement patient has been receiving TPA dornase. Sputum growing Proteus, sensitive to levofloxacin and ceftriaxone. Pleural fluid cultures negative so far. Pleural fluid studies consistent with exudative pleural effusion with fluid LDH of 960 and total protein of 4.4. Glucose of 24 consistent with empyema Interval update: No Acute respiratory events overnight. Patient continued to remain on room air. Patient chest tube was removed over the weekend as no significant output. Pigtail was left in place given continued output of around 300 cc per 24 hours along with lower lobe pneumonia. Decreasing chest tube output over the weekend. Repeat chest x-ray this morning showed improving right lower lobe infiltrate. We will remove the pigtail and will plan to follow the patient in 10-14 days Plan: -Patient initial sputum culture grew Proteus and the most recent one grew staph, will discharge the patient on Clindamycin and cefdinir to complete a 7-day course. Cannot discharge the patient levofloxacin secondary
--- NOTE | 2021-05-18 10:29 | PC.NURSE ---
1007- spoke to Morgan Castelan APRN. MD Rain said pt is free to be discharged today now that pigtail is removed. LITO Castelan stated that she will talk to MD Oswald around lunchtime to see about discharge orders. 1030- pt called out asking for PIV to be removed bc he was going home . This RN explained to pt that discharge order has not been placed yet. Pt states he is very anxious to get home.
[2021-05-18 12:00] VITALS: BP 143/60; PULSE 53; RESP 22; TEMP 36.5; O2SAT 95
--- NOTE | 2021-05-18 12:09 | HMH.DCSUM ---
General - General Admission date:: 05/11/21 Discharge date: 05/18/21 HPI HPI: Patient is a 65-year-old male who presents the ED today for further evaluation of right sided chest pain. Patient states that he has been having this pain for approximately 1 week now, states that it is been associated with shortness of breath, stating that he has had activity change at home with difficulty ambulating secondary to the shortness of breath, states that he has been able to take care of himself but has had decreased level of function. Patient states that his chest pain is on the right side, and does not describe pleuritic pain rather describes pain that is worse with motion, and feels under his ribs, states that when he presses on his ribs it does not hurt, states he has not fallen, has no lower extremity swelling (Per Dr. Padron). Right-sided chest tube placed per surgery after 150 cc straw fluid removed per pulmonology during thoracentesis. 65-year-old male patient sitting up in bed, visibly in pain. He reports as needed pain medicine has not been effective in controlling his pain throughout the night. Chest tube in place and intact to right side draining serosanguineous fluids. Current oxygen saturation 94% on room air Hospital Course Hospital Course: Abnormal Lab Results 05/18/21 06:10: RBC 3.56 L, Hgb 12.1 L, Hct 37.4 L, MCV 105.2 H, MCH 33.9 H, Plt Count 479 H 05/18/21 06:10: Creatinine 0.60 L, Calcium 7.9 L Microbiology 05/12/21 09:45 Sputum - Expectorated Sputum Gram Stain - Final 05/12/21 09:45 Sputum - Expectorated Sputum Sputum Culture - Final Staphylococcus epidermidis 05/11/21 15:30 Pleural Fluid - Pleura Gram Stain - Final 05/11/21 15:30 Pleural Fluid - Pleura Body Fluid Culture - Final No growth. 05/11/21 15:14 Nose - Nasal MRSA Culture - Final Negative 05/11/21 13:25 Sputum - Expectorated Sputum Gram Stain - Final 05/11/21 13:25 Sputum - Expectorated Sputum Sputum Culture - Final Proteus mirabilis Ordering Physician: Beny Oswald MD Date of Service: 05/17/21 Procedure(s): XR chest portable Accession Number(s): [id number] cc: Beny Oswald MD; Kizzy Mcghee MD~ PROCEDURE INFORMATION: Exam: XR Chest Exam date and time: 05/17/2021 10:52 AM Age: 65 years old Clinical indication: Shortness of breath; Additional info: SOB TECHNIQUE: Imaging protocol: XR of the chest. Views: 1 view. COMPARISON: CR XR CHEST 2V 05/15/2021 9:22 AM FINDINGS: Tubes, catheters and devices: Right pigtail chest tube is in place. Lungs: Mildly improved right basilar airspace opacities. Pleural spaces: Trace right pleural effusion. No discernible pneumothorax. Heart/Mediastinum: Changes of prior CABG. Vasculature: Stent projects in the region of the right brachiocephalic vasculature. Bones/joints: Unremarkable. IMPRESSION: 1. Mildly improved right basilar airspace opacities. 2. Similar trace right pleural effusion. No discernible pneumothorax. Right pigtail chest tube remains in place. Ordering Physician: Kemi Rain MD Date of Service: 05/11/21 Procedure(s): US thoracentesis Accession Number(s): [id number] cc: Beny Oswald MD; Rajesh Mary MD~ FINAL REPORT CLINICAL HISTORY: Right pleural effusion; 150 cc para fluid drained for diagnositc FINDINGS: Ultrasound guidance was provider for clinical service in performance of a thoracentesis. 150 mL of fluid was obtained for laboratory studies. IMPRESSION: Ultrasound guidance for thoracentesis as above. echo:Conclusion 1. Mild biatrial enlargement, normal left ventricular size, mild concentric left ventricular hypertrophy, visually estimated ejection fraction 50% with no regional wall motion abnormality, grade 2 diastolic dysfunction seen without tissue Doppler e
--- NOTE | 2021-05-18 13:12 | HMH.PHAINT ---
I spoke with the patient today about his medication list. Went over the two new medications that the patient was going to be taking and also told the patient which pharmacy he could pick those up from when he leaves. Went over his continued medications as well. When we spoke, he did not have any questions or concerns. The patient was provided a copy of the medication list.
--- NOTE | 2021-05-20 11:17 | CARE MANAGER ---
CM has attempted to reach patient x 2 days to discuss post discharge status. Patient does not answer the phone. No message was left r/t VM does not identify who's phone you have reached.
== END 2021-05-18 13:20 | disposition home or self-care (01) | DRG 177 ==
LOC: ER 10:48 → 2ND 12:53
PROVIDERS: Internal Medicine Pulmonary Disease; Nurse Practitioner Family; Admitting Provider Emergency Medicine; Emergency Provider Student in an Organized Health Care Education/Training Program; PCP Emergency Medicine; Visit Provider Emergency Medicine
DX: J86.9 Pyothorax without fistula (principal); J15.6 Pneumonia due to other Gram-negative bacteria; J18.9 Pneumonia, unspecified organism; J91.8 Pleural effusion in other conditions classified elsewhere; I48.91 Unspecified atrial fibrillation; Z20.822 Contact with and (suspected) exposure to COVID-19; K21.9 Gastro-esophageal reflux disease without esophagitis; I10 Essential (primary) hypertension; I25.10 Atherosclerotic heart disease of native coronary artery without angina pectoris; Z95.5 Presence of coronary angioplasty implant and graft; F17.210 Nicotine dependence, cigarettes, uncomplicated; Z95.1 Presence of aortocoronary bypass graft; R00.1 Bradycardia, unspecified; I25.5 Ischemic cardiomyopathy; E78.5 Hyperlipidemia, unspecified; I65.23 Occlusion and stenosis of bilateral carotid arteries
CPT/HCPCS: 32555 ×2; 36415; 71045; 71046; 71250; 80048; 80053; 82042; 82945; 83615; 84145; 84155; 84484; 85014; 85018; 85025; 87070; 87077; 87081; 87186; 87205; 87486; 87581; 87632; 87798; 89051; 93005; 93306; 96365; 99285; C9803; J0456; J0696; J7639; U0003; U0005

== ENCOUNTER → 2021-05-27 14:04 | Outpatient (CLI) | payer OTHER, SELFPAY ==
--- NOTE | 2021-05-27 14:15 | XR_ITS ---
FINAL REPORT CLINICAL HISTORY: Pneumonia COMPARISON: May 18, 2021 FINDINGS: Two views of the chest were obtained. There has been sternotomy. The heart size and pulmonary vascularity are within normal limits. The mediastinum is normal. The lungs are hyperinflated consistent with COPD. There is mild scarring in the right lung base. There is a small right pleural effusion or pleural thickening. There is no pneumothorax. The bony thorax is intact. IMPRESSION: No acute cardiopulmonary process. Reviewed, Interpreted and Dictated by Rajesh Mary III, MD Transcribed by Caesar Reees Authenticated by Rajesh Mary III, MD on 05/27/2021 03:08:22 PM [facility]
== END ==
PROVIDERS: PCP Emergency Medicine; Visit Provider Internal Medicine Pulmonary Disease
DX: J18.9 Pneumonia, unspecified organism (principal)
CPT/HCPCS: 71046

== ENCOUNTER → 2021-06-09 06:43 | Outpatient (CLI) | payer OTHER, SELFPAY ==
--- NOTE | 2021-06-09 06:44 | NM_ITS ---
APPROVED REPORT Exam: Nuclear Stress Test Indication: Chest pain, Abnormal EKG, CAD, CABG, HTN, High cholesterol, Tobacco use, Family history Patient Location: Outpatient Stress Tech: Elba Chavira NM Tech:Lynn Baptiste, ARRT, RT (R)(N) Ht: 6 ft 3 in Wt: 212 lbs HR: 45 bpm BP: 172/74 mmHg BSA: 2.25 m2 BMI: 26.4 History: Chest pain, Abnormal EKG, CAD, CABG, HTN, High cholesterol, Tobacco use, Family history Procedure: Patient received a 0.4 mg of intravenous Lexiscan, resting heart rate 45 bpm, resting blood pressure 172/74 mmHg, with Lexiscan maximum heart rate achived was 57 bpm which is Less than 85 resting electrocardiogram showed % of the maximum predicted heart rate and blood pressure was 178/70 mmHg. With Lexiscan, patient denied any complaint of chest pain. Electrocardiogram Sinus rhythm with nonspecific ST-T changes, with Lexiscan there is less than 1.[address] segment depression with normal baseline EKG. The EKG portion of the Lexiscan is nondiagnostic. Cardiac Stress and Resting SPECT Images: Cardiac Stress and Resting SPECT images were obtained using technetium 99m Myoview 32.0 mCi stress and 10.48 mCi at rest. Gated SPECT for analysis of segmental wall motion and calculation of the ejection fraction also done. Cardiac stress and resting SPECT images show a fixed defect involving the inferolateral and posterior basal wall consistent with area of myocardial scarring without significant su-infarct ischemia, computer derived ejection fraction 37% with inferolateral and posterior basal wall hypokinesis, right ventricle is normal size and contractility. However during the acquisition of the study frequent ectopic beats were present which may underestimate ejection fraction by gated SPECT. Conclusion: 1. The EKG portion of the Lexiscan is nondiagnostic. 2. Scintigraphic evidence of myocardial scarring involving the inferolateral and posterior basal wall, computer derived ejection fraction is 37% with segmental wall motion abnormality described above, right ventricle is normal size and contractility, however during this study frequent ectopic beats were present which may underestimate the ejection fraction by gated SPECT. An echo would be better modality to evaluate left ventricular systolic function in this patient. 3. Abnormal Lexiscan Myoview study. Electronically signed by : Iraj Streeter MD 06/10/2021 06:32:22
--- NOTE | 2021-06-09 06:44 | CA_ITS ---
APPROVED REPORT Exam: Pharmacologic Technologist: Elba Chavira, Ht: 6 ft 3 in Wt: 211 lbs BSA: 2.24 m2 HR: 43 bpm BP: 172/74 mmHg Rhythm: marked sinus christian, LPFB, LVH, poor R wave progression, cannot R/O old inf RI Medical History Medical History: HTN, Hyperlipidemia Medications: Lisinopril,,,,, Amiodarone,,,,, Aspirin,,,,, Pantoprazole,,,,, Atorvastatin,,,,, CloPIdogrel,,,,, BisOPROLOL,,,,, Isosorbide Monoitrate,,,,, Cardiac Risk Factors: HTN, Hyperlipidemia, Smoking Stress Test Details Test: LEXISCAN HR Resting HR: 45 bpm Max Heart Rate (APMHR): 154.997237 bpm Max HR Achieved: 57 bpm Target HR (85% APMHR): 130.142843 bpm % of APMHR: 37.01 Recovery HR: 56 bpm BP Resting BP: 172/74 mmHg Max BP: 178/70 mmHg Recovery BP: 167.0/75.0 mmHg ECG Resting ECG: marked sinus christian, LPFB, LVH, poor R wave progression, cannot R/O old inf RI Clinical Exercise duration: 04:00 min Highest Stage Achieved: Stress ECG Conclusion During lexiscan pt experinced mild SOA and stomach discomfort. Rare ectopic beat. Exaggeration of baseline ST abns inferiorly and laterally. Non diagnostic lexiscan stress. Myoview images reported separately. Test Summary REST . . . . . . . Sitting REST 03:47 . . 45 . 172/ 74 . . Stage 1 01:00 . . 48 . . . . Stage 2 01:00 . . 56 . . . . Stage 3 01:00 . . 56 . 178/ 70 . . Stage 4 01:00 . . 56 . 162/ 72 . Stop exercise at 04:00 RECOVERY 01:00 . . 56 . 160/ 69 . . RECOVERY 02:00 . . 56 . 160/ 69 . . RECOVERY 03:00 . . 55 . 167/ 75 . . RECOVERY 03:38 . . 54 . 166/ 71 . . Electronically signed by : Iraj Streeter MD 06/10/2021 06:28:12
--- NOTE | 2021-06-09 08:49 | HMH.ITSHM ---
Current Home Medications as stated by this patient Shahzad Pyle or international account representative. []PANTOPRAZOLE LISINOPRIL BISOPROLOL ATORVASTATIN ISOSORBIDE CLOPIDOGREL ASA
== END ==
PROVIDERS: PCP Emergency Medicine; Visit Provider Internal Medicine
DX: I25.10 Atherosclerotic heart disease of native coronary artery without angina pectoris (principal); I48.92 Unspecified atrial flutter; I10 Essential (primary) hypertension; Z79.01 Long term (current) use of anticoagulants; Z72.0 Tobacco use; Z95.1 Presence of aortocoronary bypass graft
CPT/HCPCS: 78452; 93017; A9502; J2785